=== PATIENT | female | born 1960 | race Caucasian/White ===

== ENCOUNTER 2020-08-08 16:55 | Emergency (ER) | payer OTHER ==
--- OUTSIDE RECORDS SUMMARY | 2020-08-08 16:57 | XMS REPORT | Continuity of Care Document ---
:1960 Author Organization [facility] t Address [address] [place] [address] Care Team Providers Name Role Phone SYSTEM, NOT IN Attending Clinician Unavailable Rosa RN, L Attending Clinician Unavailable Doctor Unassigned, Name Attending Clinician Unavailable Jorge Luis TALLEY, K.H. Attending Clinician Problems This patient has no known problems. Allergies, Adverse Reactions, Alerts This patient has no known allergies or adverse reactions. Medications This patient has no known medications. Procedures This patient has no known procedures. Encounters Start End Encounter Admission Attending Care Care Encounter Source Date/Time Date/Time Type Type Clinicians Facility Department ID 2019-11-01 Outpatient SYSTEM, [facility] [id number] 17:42:33 PROVIDER Eric padilla 2020-08-02 2020-08-02 Telephone Rosa Rasmussen [id number] 00:00:00 00:00:00 , Lizabeth Echevarria [id number] [place] [id number] 2020-07-11 2020-07-11 Orders Doctor COOMBS [id number] 00:00:00 00:00:00 Only Unassigned, ALBERTO [id number] Why [facility] [id number] 2020-07-11 2020-07-11 Outpatient [facility] [id number] [facility] 2020-06-19 2020-06-19 Outpatient [facility] [id number] [facility] 2020-06-13 2020-06-13 Out[facility] [id number] [facility] 2020-06-13 2020-06-13 Out[facility] [id number] [facility] 2020-05-23 2020-05-23 Office Kang, [facility] [id number] 13:14:26 14:35:32 Visit Rupert Duff [id number] [place] [id number] [id number] [address] 2020-05-23 2020-05-23 Outpatient [facility] [id number] [facility] 2020-05-17 2020-05-17 Outpatient [facility] [id number] [facility] 2020-05-14 2020-05-14 Out[facility] [id number] [facility] 2020-05-09 2020-05-09 Outpatient [facility] [id number] [facility] 2020-04-27 2020-04-27 Outpatient [facility] [id number] [facility] 2020-04-25 2020-04-25 Outpatient [facility] [id number] [facility] 2020-03-19 2020-03-19 Outpatient [facility] [id number] [facility] 2020-03-19 2020-03-19 Outpatient [facility] [id number] [facility] 2020-02-29 2020-02-29 Outpatient [facility] [id number] [facility] 2020-02-28 2020-02-28 Outpatient [facility] [id number] [facility] 2020-02-01 2020-02-01 Outpatient [facility] [id number] [facility] 2020-01-25 2020-01-25 Outpatient [facility] [id number] [facility] 2020-01-17 2020-01-17 Outpatient [facility] [id number] [facility] 2020-01-16 2020-01-16 Outpatient [facility] [id number] [facility] 2020-01-12 2020-01-12 Outpatient [facility] [id number] [facility] 2020-01-11 2020-01-11 Outpatient [facility] [id number] [facility] 2020-01-09 2020-01-09 Outpatient [facility] [id number] [facility] Results This patient has no known results.
[2020-08-08 18:20] LABS: Absolute Lymphocytes (CBC) 1.6 K/uL (0.7-4.9); Basophils % 1.7 % (0-1.3); Hematocrit 22.5 % (36.0-45.0); Lymphocytes % 19.3 % (15.3-44.8); MPV 7.9 fL (7.6-11.3); RBC Red Blood Cell Count 3.49 M/uL (3.86-4.86)
[2020-08-08 18:30] LABS: Albumin 3.9 g/dL (3.4-5.0); Bilirubin Direct 0.1 mg/dL (0-0.2); Bilirubin Total 0.3 mg/dL (0.2-1.0); Potassium 4.3 mmol/L (3.5-5.1); Protein, Total 7.8 g/dL (6.4-8.2)
--- NOTE | 2020-08-08 19:53 | RAD REPORT ---
EXAM DESCRIPTION: CT - Abdomen Pelvis Wo Contrast - 08/08/2020 7:38 pm CLINICAL HISTORY: Abdominal pain COMPARISON: June 2020 CT chest TECHNIQUE: Computed axial tomography of the abdomen and pelvis was obtained. IV and oral contrast we re not requested. All CT scans are performed using dose optimization technique as appropriate and may include automated exposure control or mA/KV adjustment according to patient size. FINDINGS: The evaluation of solid organs, vessels and bowel is limited secondary to the lack of con trast administration. Right lower lobe subcentimeter nodule unchanged. The liver, spleen, pancreas, adrenals and left kidney appear grossly normal. Right nephrectomy. Left kidney grossly normal. No hydronephrosis. Wall of a portion of the sigmoid colon is thickened. Minimal stranding within the adjacent fat. Colon ic diverticulosis. Normal appendix IMPRESSION: Subcentimeter right lower lobe pulmonary nodule unchanged. This may represent a metastas is. Thickening of the wall of a portion of sigmoid colon. Minimal stranding within the adjacent fat. This could indicate minimal diverticulitis. An underlying mass although possible is probably less likely. Followup is recommended
[2020-08-08 20:46] LABS: Platelet Estimate ADEQ; White Blood Cell Scan OK (OK)
[2020-08-08 20:47] LABS: Anisocytosis 2+; Blood Morphology Comment NOTED (NOT SEEN); Hypochromasia 2+; Polychromasia SLIGHT
[2020-08-08] MEDS ORDERED: NA CHLORIDE 0.9% 250 ML ONE (21:53)
--- NOTE | 2020-08-08 23:47 | EDPHYS ---
Physician Documentation [facility] Name: Barak Dior Age: 60 yrs Sex: Female : 1960 Arrival Date: 08/08/2020 Time: 16:59 Bed 20 Private MD: ED Physician Ramon Wallis HPI: 08/08 23:42 This 60 yrs old Female presents to ER via Ambulatory with complaints of GI kb Bleed -Sent By Dr Marcelo. 23:42 Pt reports chronic abd pain/problems. States she is trying to get clearance to have kb Upper and lower GI scopes done and part of that was having labs drawn yesterday. Was called today and told that she was anemic and needed to come to the ER. States she takes iron supplements and was told by her other dr that she doesn't absorb iron like she should because of cancer history. States she has a it specialist appt tomorrow to get cleared for the GI procedures and would like to make it to that. Denies any bleeding. States her stool is dark, but not different than normal. States she has had dizziness and fatigue intermittently over the last few months. . 23:45 Dr Marcelo had labs done yesterday and pt received call today that she was anemic and kb needed to come to the eR. Onset: The symptoms/episode began/occurred today. Severity of symptoms: At their worst the symptoms were. The patient has experienced similar episodes in the past, a few times. The patient has been recently seen by a physician:. 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 - Social history:: Smoking status: Patient reports the use of cigarette tobacco products, smokes one pack cigarettes per day. ROS: 23:41 Constitutional: Negative for fever, chills, and weight loss. kb 23:41 Abdomen/GI: Positive for abdominal pain. 23:41 Neuro: Positive for dizziness. 23:41 All other systems are negative. Exam: 23:40 Constitutional: This is a well developed, well nourished patient who is awake, alert, kb and in no acute distress. Head/Face: Normocephalic, atraumatic. ENT: Moist Mucous membranes Cardiovascular: Regular rate and rhythm with a normal S1 and S2. No gallops, murmurs, or rubs. No pulse deficits. Respiratory: Respirations even and unlabored. No increased work of breathing, no retractions or nasal flaring. Skin: Warm, dry with normal turgor. Normal color. MS/ Extremity: Pulses equal, no cyanosis. Neurovascular intact. Full, normal range of motion. Neuro: Awake and alert, GCS 15, oriented to person, place, time, and situation. Moves all extremities. Normal gait. Psych: Awake, alert, with orientation to person, place and time. Behavior, mood, and affect are within normal limits. 23:40 Abdomen/GI: Inspection: abdomen appears normal, Bowel sounds: normal, Palpation: soft, in all quadrants, mild abdominal tenderness, in all quadrants. Vital Signs: 17:14 Weight 77.11 kg; Height 5 ft. 4 in. (162.56 cm); Pain 0/10; sv 17:26 BP 108 / 48; Pulse 87; Temp 97.8(O); Pulse Ox 100% on R/A; ap3 17:30 BP 118 / 90 Sitting; Pulse 77; Resp 16; Pulse Ox 100% on R/A; mh5 17:32 BP 104 / 54 Standing; Pulse 81; Resp 16; Pulse Ox 100% on R/A; mh5 17:34 BP 110 / 50 Supine; Pulse 71; Resp 16; Pulse Ox 100% on R/A; mh5 19:08 BP 106 / 55; Pulse 66; Pulse Ox 100% on R/A; ap3 20:30 BP 122 / 39; Pulse 76; Resp 16; Pulse Ox 99% on R/A; jb4 21:00 BP 165 / 76; Pulse 73; Resp 18; Pulse Ox 100% on R/A; jb4 23:00 BP 131 / 58; Pulse 71; Resp 22; Pulse Ox 97% on R/A; jb4 08/09 00:00 BP 138 / 65; Pulse 78; Resp 16; Pulse Ox 100% on R/A; jb4 08/08 17:14 Body Mass Index 29.18 (77.11 kg, 162.56 cm) sv MDM: 0526 17:20 Patient medically screened. kb 23:40 Data reviewed: vital signs, nurses notes. Data interpreted: Pulse oximetry: on room air kb is 97 %. Interpretation: normal. Counseling: I had a detailed discussion with the patient and/or guardian regarding: the historical points, exam findings, and any diagnostic results supporting the discharge/admit diagnosis, lab results, radiology results, the need for outpatient follow up, a kaiako kohanga reo, to return to the emergency department if symptoms worsen or persist or if there are any questions or concerns that arise at home. ED course: Discussed admission with hospitalist. Recommends transfuse 1 unit and pt follow up outpatient. . 08/08 17:29 Order name: Basic Metabolic Panel; Complete Time: 18:31 kb 08/08 17:29 Order name: CBC with Diff; Complete Time: 20:50 kb 08/08 17:29 Order name: Hepatic Function; Complete Time: 18:31 kb 08/08 17:29 Order name: Lipase; Complete Time: 18:31 kb 08/08 17:29 Order name: Type And Screen kb 08/08 20:22 Order name: Packed RBC Leukored EDMS 08/08 17:29 Order name: IV Saline Lock; Complete Time: 18:03 kb 08/08 17:29 Order name: Labs collected and sent; Complete Time: 18:04 kb 08/08 17:29 Order name: Orthostatics; Complete Time: 17:41 kb 08/08 19:26 Order name: CT Abd/Pelvis - Without Contrast; Complete Time: 19:58 kb 08/08 20:47 Order name: CBC Smear Scan; Complete Time: 20:50 EDMS Administered Medications: 08/09 00:00 Drug: Cipro (ciprofloxacin) 500 mg Route: PO; jb4 00:05 Follow up: Response: Medication administered at discharge. jb4 00:00 Drug: Flagyl (metroNIDAZOLE) 500 mg Route: PO; jb4 00:05 Follow up: Response: Medication administered at discharge. jb4 Disposition: 08:36 Co-signature as Attending Physician, Ramon Wallis MD I agree with the assessment and kdr plan of care. Disposition: 08/08/20 23:47 Discharged to Home. Impression: Anemia, unspecified, Diverticulitis of intestine, part unspecified, without perforation or abscess without bleeding. - Condition is Stable. - Discharge Instructions: Anemia, Nonspecific, Diverticulitis, Ebct-az-Bcdp, Blood Transfusion, Gpaf-zr-Awtk. - Prescriptions for Flagyl 500 mg Oral Tablet - take 1 tablet by ORAL route every 8 hours for 10 days; 30 tablet. Cipro 500 mg Oral Tablet - take 1 tablet by ORAL route every 12 hours for 7 days; 14 tablet. - Medication Reconciliation Form, Thank You Letter, Antibiotic Education, Prescription Opioid Use form. - Follow up: Emergency Department; When: As needed; Reason: Worsening of condition. Follow up: Private Physician; When: 2 - 3 days; Reason: Recheck today's complaints, Continuance of care, Re-evaluation by your physician. Signatures: Dispatcher [employer] EDMS Jhoana Young, MALIKA-C PROGRAM ATTENDANT-Cristal Howell, RN RN Ramon Wallis MD MD [facility] Joni Cunningham RN RN jb4 Corrections: (The following items were deleted from the chart) 00:42 08/08 23:47 08/08/2020 23:47 Discharged to Home. Impression: Anemia, unspecified; jb4 Diverticulitis of intestine, part unspecified, without perforation or abscess without bleeding. Condition is Stable. Forms are Medication Reconciliation Form, Thank You Letter, Antibiotic Education, Prescription Opioid Use. Follow up: Emergency Department; When: As needed; Reason: Worsening of condition. Follow up: Private Physician; When: 2 - 3 days; Reason: Recheck today's complaints, Continuance of care, Re-evaluation by your physician. kb
--- NOTE | 2020-08-08 23:47 | ER ---
Nurse's Notes [facility] Name: Barak Dior Age: 60 yrs Sex: Female : 1960 Arrival Date: 08/08/2020 Time: 16:59 Bed 20 Private MD: Diagnosis: Anemia, unspecified;Diverticulitis of intestine, part unspecified, without perforation or abscess without bleeding Presentation: 08/08 17:14 Chief complaint: Patient states: sent by Dr Marcelo for anemia. Pt reports having blood sv drawn yesterday. States she has had black stools for years and recently her Iron pill was increased in frequency. Coronavirus screen: Client denies travel out of the [place] in the last 14 days. At this time, the client does not indicate any symptoms associated with coronavirus-19. Ebola Screen: No symptoms or risks identified at this time. Risk Assessment: Do you want to hurt yourself or someone else? Patient reports no desire to harm self or others. Onset of symptoms was August 08, 2020. 17:14 Method Of Arrival: Ambulatory sv 17:14 Acuity: SAM 3 sv 17:29 Initial Sepsis Screen: Does the patient meet any 2 criteria? No. Patient's initial ap3 sepsis screen is negative. Does the patient have a suspected source of infection? No. Patient's initial sepsis screen is negative. 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 - Social history:: Smoking status: Patient reports the use of cigarette tobacco products, smokes one pack cigarettes per day. Screenin:29 Abuse screen: Denies threats or abuse. Nutritional screening: No deficits noted. ap3 Tuberculosis screening: No symptoms or risk factors identified. Fall Risk None identified. No fall in past 12 months (0 pts). No secondary diagnosis (0 pts). No IV (0 pts). Ambulatory Aid- None/Bed Rest/Nurse Assist (0 pts). Gait- Normal/Bed Rest/Wheelchair (0 pts) Mental Status- Oriented to own ability (0 pts). Total Martinez Fall Scale indicates No Risk (0-24 pts). Assessment: 17:27 General: Appears in no apparent distress. comfortable, Behavior is calm, cooperative. ap3 Pain: Denies pain. Neuro: Level of Consciousness is awake, alert, obeys commands, Oriented to person, place, time, situation, Gait is steady, Speech is normal. Cardiovascular: Capillary refill < 3 seconds. Respiratory: Airway is patent Respiratory effort is even, unlabored, Respiratory pattern is regular, symmetrical. GI: Reports dark stools for the last 6 years. : No signs and/or symptoms were reported regarding the genitourinary system. EENT: No signs and/or symptoms were reported regarding the EENT system. Derm: No signs and/or symptoms reported regarding the dermatologic system. Musculoskeletal: No signs and/or symptoms reported regarding the musculoskeletal system. 19:09 Reassessment: Patient and/or family updated on plan of care and expected duration. Pain ap3 level reassessed. Patient is alert, oriented x 3, equal unlabored respirations, skin warm/dry/pink. 20:00 Reassessment: Patient appears in no apparent distress at this time. Patient and/or jb4 family updated on plan of care and expected duration. Pain level reassessed. Patient is alert, oriented x 3, equal unlabored respirations, skin warm/dry/pink. 21:14 Reassessment: Patient appears in no apparent distress at this time. Patient and/or jb4 family updated on plan of care and expected duration. Pain level reassessed. Patient is alert, oriented x 3, equal unlabored respirations, skin warm/dry/pink. 22:10 Reassessment: Patient appears in no apparent distress at this time. Patient and/or jb4 family updated on plan of care and expected duration. Pain level reassessed. Patient is alert, oriented x 3, equal unlabored respirations, skin warm/dry/pink. 23:22 Reassessment: Patient appears in no apparent distress at this time. Patient and/or jb4 family updated on plan of care and expected duration. Pain level reassessed. Patient is alert, oriented x 3, equal unlabored respirations, skin warm/dry/pink. 08/09 00:22 Reassessment: Patient appears in no apparent distress at this time. Patient and/or jb4 family updated on plan of care and expected duration. Pain level reassessed. Patient is alert, oriented x 3, equal unlabored respirations, skin warm/dry/pink. No post H\T\H drawn per providers decision. Vital Signs: 08/08 17:14 Weight 77.11 kg; Height 5 ft. 4 in. (162.56 cm); Pain 0/10; sv 17:26 BP 108 / 48; Pulse 87; Temp 97.8(O); Pulse Ox 100% on R/A; ap3 17:30 BP 118 / 90 Sitting; Pulse 77; Resp 16; Pulse Ox 100% on R/A; mh5 17:32 BP 104 / 54 Standing; Pulse 81; Resp 16; Pulse Ox 100% on R/A; mh5 17:34 BP 110 / 50 Supine; Pulse 71; Resp 16; Pulse Ox 100% on R/A; mh5 19:08 BP 106 / 55; Pulse 66; Pulse Ox 100% on R/A; ap3 20:30 BP 122 / 39; Pulse 76; Resp 16; Pulse Ox 99% on R/A; jb4 21:00 BP 165 / 76; Pulse 73; Resp 18; Pulse Ox 100% on R/A; jb4 23:00 BP 131 / 58; Pulse 71; Resp 22; Pulse Ox 97% on R/A; jb4 08/09 00:00 BP 138 / 65; Pulse 78; Resp 16; Pulse Ox 100% on R/A; jb4 08/08 17:14 Body Mass Index 29.18 (77.11 kg, 162.56 cm) sv ED Course: 08/08 16:59 Patient arrived in ED. ds1 17:17 Triage completed. sv 17:18 Arm band placed on. sv 17:19 Jhoana Young FNP-C [facility] kb 17:19 Ramon Wallis MD is Attending Physician. kb 17:26 Camilla French, XANDER is Primary Nurse. ap3 17:29 Patient has correct armband on for positive identification. Call light in reach. Adult ap3 w/ patient. Pulse ox on. NIBP on. Door closed. Noise minimized. 18:03 Type And Screen Sent. 5 18:03 Basic Metabolic Panel Sent. 5 18:03 CBC with Diff Sent. mh5 18:03 Hepatic Function Sent. mh5 18:03 Lipase Sent. mh5 18:04 Initial lab(s) drawn, by nh, sent to lab. T\T\S collected, blood band applied to patient. [facility] Inserted saline lock: 20 gauge in right antecubital area, using aseptic technique. Blood collected. 18:05 Bed in low position. Side rails up X 1. commercial center manager on. [facility] 18:41 Notified Nurse Practitioner and/or Physician Sand Control Worker of a critical lab result(s), sv hemoglobin-6.5. 19:14 Primary Nurse role handed off by Camilla French, RN mw2 19:38 CT Abd/Pelvis - Without Contrast In Process Unspecified. EDWA 20:34 Joni Cunningham, RN is Primary Nurse. jb4 08/09 00:22 No provider procedures requiring assistance completed. IV discontinued, intact, jb4 bleeding controlled, No redness/swelling at site. Pressure dressing applied. Administered Medications: 00:00 Drug: Cipro (ciprofloxacin) 500 mg Route: PO; jb4 00:05 Follow up: Response: Medication administered at discharge. jb4 00:00 Drug: Flagyl (metroNIDAZOLE) 500 mg Route: PO; jb4 00:05 Follow up: Response: Medication administered at discharge. jb4 Outcome: 08/08 23:47 Discharge ordered by . brenda 08/09 00:40 Discharged to home ambulatory. jb4 Condition: stable Discharge instructions given to patient, Instructed on discharge instructions, follow up and referral plans. medication usage, Demonstrated understanding of instructions, follow-up care, medications, Prescriptions given X 2. 00:42 Patient left the ED. jb4 Signatures: Dispatcher [employer] EDWA Jhoana Young, BONY HARTP-Cristal Howell RN Jodi Payne ds1 Joni Cunningham, Valeria Chaney RN Camilla Beth RN RN ap3 [place], MyKena mw2 Corrections: (The following items were deleted from the chart) 00:40 00:22 Reassessment: Patient appears in no apparent distress at this time. Patient jb4 and/or family updated on plan of care and expected duration. Pain level reassessed. Patient is alert, oriented x 3, equal unlabored respirations, skin warm/dry/pink. jb4
[2020-08-09] MEDS ORDERED: metroNIDAZOLE 500 MG TABLET ONE (00:28)
[2020-08-09] MEDS ORDERED: CIPROFLOXACIN HCL 500 MG TAB ONE (00:29)
[2020-08-09 02:33] VITALS: TEMP 97.8
[2020-08-09 02:46] VITALS: BP 138/65; O2SAT 100
== END 2020-08-09 00:42 | disposition home or self-care (01) ==
LOC: ER 16:55
PROC: 30233N1 Transfusion of Nonautologous Red Blood Cells into Peripheral Vein, Percutaneous Approach (ICD-10-PCS; principal; 2020-08-09)
DX: D64.9 Anemia, unspecified (principal); K57.32 Diverticulitis of large intestine without perforation or abscess without bleeding; J44.9 Chronic obstructive pulmonary disease, unspecified; F17.210 Nicotine dependence, cigarettes, uncomplicated; Z95.1 Presence of aortocoronary bypass graft
CPT/HCPCS: 85025; 80048; 36415; 86900; 86850; 86901; 80076; 83690; 74176; 99284; 36430; P9016; J7050

== ENCOUNTER 2020-09-05 06:20 | Day surgery (SDC) | payer OTHER ==
[2020-09-05] MEDS ORDERED: Ringers Lactate 1,000 ML IV ONE (06:57)
[2020-09-05] MEDS ORDERED: LIDOCAINE 1% MPF 5 ML VIAL ONE (07:42)
[2020-09-05] MEDS ORDERED: propofoL 200 MG/20 ML VIAL IV ONE (07:42)
--- NOTE | 2020-09-05 08:24 | ENDO RPT ---
[address], [address] EGD PROCEDURE REPORT EXAM DATE: 09/05/2020 PATIENT NAME: Barak Dior MR#: [id number] BIRTHDATE: 1960 ATTENDING: [address] STATUS: outpatient SIGN ERECTOR AND REPAIRER: Susan Paul RN and Yessy Pickard RN INDICATIONS: The patient is a 60 yr old Female here for an EGD due to left upper quadrant abdominal pain, right upper quadrant abdominal pain, melenic bleeding, anemia, GERD, and heartburn PROCEDURE PERFORMED: EGD with biopsy MEDICATIONS: Per Anesthesia. TOPICAL ANESTHETIC: none CONSENT: The patient understands the risks and benefits of the procedure and understands that these risks include, but are not limited to: sedation, allergic reaction, infection, perforation and/or bleeding. Alternative means of evaluation and treatment include, among others: physical exam, x-rays, and/or surgical intervention. The patient elects to proceed with this endoscopic procedure. DESCRIPTION OF PROCEDURE: During intra-op preparation period all mechanical medical equipment was checked for proper function. Hand hygiene and appropriate measures for infection prevention was taken. Procedure, possible complications, and alternatives including but not limited to the possibility of bleeding, perforation, tear, infection, sepsis, need for surgery, need for blood transfusion, and anesthesia related complications were explained to the patient. After the risks, benefits and alternatives of the procedure were thoroughly explained, Informed consent was verified, confirmed and timeout was successfully executed by the treatment team. The patient was placed in the left lateral position. The patient was anesthetized with topical anesthesia. Through the anesthetized oropharyngeal area, the scope was passed without any difficulty. The Pentax EG-[id number] ([id number]) endoscope was introduced through the mouth and advanced to the third portion of the duodenum. Retroflexed views revealed sessile polyp(s). The gastroscope was then slowly withdrawn and removed. A 3 mm white sessile polyp was found in the fundus. With jumbo forceps, a biopsy was obtained and sent to pathology. An erosion was found in the antrum. Multiple biopsies were obtained and sent to pathology. A 4 mm sessile polyp was found in the descending duodenum. With jumbo forceps, a biopsy was obtained and sent to pathology. Small bowel biopsies obtained. ADVERSE EVENTS: There were no complications. IMPRESSIONS: 1. 3 mm white sessile polyp in the fundus, s/p biopsy 2. Erosion in the antrum, s/p biopsies 3. 4 mm sessile polyp n the descending duodenum, s/p biopsy 4. Small bowel biopsies obtained RECOMMENDATIONS: 1. await biopsy results 2. acid suppression therapy REPEAT EXAM: De[address] Dr eSigned: Deuce Nation Dr 09/05/2020 8:24 AM cc: CPT CODES: ICD9 CODES: PATIENT NAME: Barak Dior MR#: [id number]
--- NOTE | 2020-09-05 08:50 | ENDO RPT ---
[address], [address] COLONOSCOPY PROCEDURE REPORT EXAM DATE: 09/05/2020 PATIENT NAME: Barak Dior MR #: [id number] BIRTHDATE: 1960 ATTENDING: Deuce [address] STATUS: outpatient [facility] OPERATOR: Susan Paul RN and Yessy Pickard RN INDICATIONS: The patient is a 60 yr old Female here for a colonoscopy due to RLQ/LLQ abdominal pain, anemia, melenic bleeding, and family history of colon polyps - mother, and personal history of uterine cancer s/p CICI/BSO PROCEDURE PERFORMED: Colonoscopy MEDICATIONS: Per Anesthesia. ESTIMATED BLOOD LOSS: None CONSENT: The patient understands the risks and benefits of the procedure and understands that these risks include, but are not limited to: sedation, allergic reaction, infection, perforation and/or bleeding. Alternative means of evaluation and treatment include, among others: physical exam, x-rays, and/or surgical intervention. The patient elects to proceed with this endoscopic procedure. DESCRIPTION OF PROCEDURE: During intra-op preparation period all mechanical medical equipment was checked for proper function. Hand hygiene and appropriate measures for infection prevention was taken. Procedure, possible complications, alternatives including, but not limited to possibility of bleeding, perforation, tear, infection, sepsis, need for surgery, need for blood transfusion, were explained to the patient. After the risks, benefits and alternatives of the procedure were thoroughly explained, Informed consent was verified, confirmed and timeout was successfully executed by the treatment team. The patient was placed in the left lateral position. A digital rectal exam was performed and revealed a mild perianal rash. After appropriate level of anesthesia, the scope was passed. The EG-[id number] ([id number]) and [id number] ([id number]) endoscope was introduced through the anus and advanced to the sigmoid colon. The quality of the prep was good. The instrument was then slowly withdrawn as the colon was fully examined. Scope withdrawal time was 3 minutes. COLON FINDINGS: The colon was tortuous, unable to intubate past sigmoid colon, despite multiple manuevers including moving patient on to her right side. Retroflexed views revealed small hemorrhoids. The scope was then completely withdrawn from the patient and the procedure terminated. ADVERSE EVENTS: There were no complications. IMPRESSIONS: 1) Tortuous colon, unable to intubate past sigmoid colon 2) Internal hemorrhoids 3) Perianal rash, mild RECOMMENDATIONS: 1) barium enema 2) perianal rash therapy RECALL: Return in 5 year(s) for Colonoscopy. Deuce [address] Dr eSigned: Deuce Nation Dr 09/05/2020 8:49 AM cc: CPT CODES: ICD9 CODES: 1. 782.1 Rash and other nonspecific skin eruption 2. 569.89 Other specified disorders of intestines PATIENT NAME: Barak Dior MR#: [id number]
[2020-09-05 08:58] VITALS: O2SAT 100
[2020-09-05 09:14] VITALS: BP 159/92; TEMP 97.7
== END 2020-09-05 09:28 | disposition home or self-care (01) ==
LOC: OR 06:20
PROVIDERS: ATTEND Internal Medicine Gastroenterology
PROC: 0DB68ZX Excision of Stomach, Via Natural or Artificial Opening Endoscopic, Diagnostic (ICD-10-PCS; 2020-09-05)
PROC: 0DJD8ZZ Inspection of Lower Intestinal Tract, Via Natural or Artificial Opening Endoscopic (ICD-10-PCS; 2020-09-05)
PROC: 0DB98ZX Excision of Duodenum, Via Natural or Artificial Opening Endoscopic, Diagnostic (ICD-10-PCS; principal; 2020-09-05 07:30)
PROC: 0DB88ZX Excision of Small Intestine, Via Natural or Artificial Opening Endoscopic, Diagnostic (ICD-10-PCS; 2020-09-05 07:30)
DX: K31.7 Polyp of stomach and duodenum (principal); K29.50 Unspecified chronic gastritis without bleeding; K29.80 Duodenitis without bleeding; R10.32 Left lower quadrant pain; K64.8 Other hemorrhoids; R21 Rash and other nonspecific skin eruption; R10.9 Unspecified abdominal pain; R10.12 Left upper quadrant pain; R10.11 Right upper quadrant pain; K21.9 Gastro-esophageal reflux disease without esophagitis; D64.9 Anemia, unspecified; K92.1 Melena; R12 Heartburn
CPT/HCPCS: 88312; 88305; 43239; 45378; J2704; J7120

== ENCOUNTER 2020-09-12 22:06 | Emergency (ER) | payer OTHER ==
--- OUTSIDE RECORDS SUMMARY | 2020-09-12 22:09 | XMS REPORT | Continuity of Care Document ---
:1960 Author Organization [facility] t Address [address] [place] [address] Care Team Providers Name Role Phone SYSTEM, NOT IN Attending Clinician Unavailable Jorge Luis TALLEY, K.H. [...] Clinicians Facility Department ID 2019-11-01 Outpatient SYSTEM, [facility] [id number] 17:42:33 PROVIDER Eric padilla 2020-09-11 2020-09-11 Outpatient [facility] [id number] 00:00:00 00:00:00 [facility] 2020-09-10 2020-09-10 Office DARLENE Kang [id number] 08:58:16 09:42:54 Visit Rupert Duff [id number] Cas [id number] Fátima [phone] formerly [facility] 2020-09-06 2020-09-06 Outpatient [facility] [id number] [facility] 2020-09-06 2020-09-06 [facility] [id number] [facility] 2020-08-08 2020-08-08 Out[facility] [id number] [facility] 2020-07-11 2020-07-11 Out[facility] [id number] [facility] 2020-06-19 2020-06-19 Out[facility] [id number] [facility] 2020-06-13 2020-06-13 Out[facility] [id number] [facility] 2020-06-13 2020-06-13 Out[facility] [id number] [facility] 2020-05-23 2020-05-23 Out[facility] [id number] [facility] 2020-05-17 2020-05-17 Out[facility] [id number] [facility] 2020-05-14 2020-05-14 [facility] [id number] [facility] 2020-05-09 2020-05-09 Out[facility] [id number] [facility] 2020-04-27 2020-04-27 Out[facility] [id number] [facility] 2020-04-25 2020-04-25 [facility] [id number] [facility] 2020-03-19 2020-03-19 Out[facility] [id number] [facility] 2020-03-19 2020-03-19 Out[facility] [id number] [facility] 2020-02-29 2020-02-29 Out[facility] [id number] [facility] 2020-02-28 2020-02-28 Out[facility] [id number] [facility] 2020-02-01 2020-02-01 Out[facility] [id number] [facility] 2020-01-25 2020-01-25 Out[facility] [id number] [facility] 2020-01-17 2020-01-17 [facility] [id number] [facility] 2020-01-16 2020-01-16 Out[facility] [id number] [facility] 2020-01-12 2020-01-12 Out[facility] [id number] [facility] 2020-01-11 2020-01-11 Out[facility] [id number] [facility] 2020-01-09 2020-01-09 Out[facility] [id number] [facility] Results This patient has no known results.
[2020-09-13] MEDS ORDERED: MAGNES/ALUMIN/SIMET 30ML UCUP ONE (01:06)
[2020-09-13] MEDS ORDERED: ONDANSETRON 4 MG/2 ML VIAL ONE (01:06)
[2020-09-13] MEDS ORDERED: FAMOTIDINE 20 MG/2 ML VIAL IV ONE (01:07)
[2020-09-13] MEDS ORDERED: LIDOCAINE VISCOUS 2% SOLN 15 ML UDC ONE (01:07)
[2020-09-13] MEDS ORDERED: NA CHLORIDE 0.9% 1,000 ML ONE (01:07)
[2020-09-13 01:57] LABS: Absolute Lymphocytes (CBC) 0.8 K/uL (0.7-4.9); Basophils % 0.4 % (0-1.3); Hematocrit 26.8 % (36.0-45.0); Lymphocytes % 6.4 % (15.3-44.8); MPV 8.7 fL (7.6-11.3); RBC Red Blood Cell Count 4.03 M/uL (3.86-4.86)
[2020-09-13 02:19] LABS: ALT/SGPT 25 U/L (12-78); AST/SGOT 16 U/L (15-37); Albumin 3.6 g/dL (3.4-5.0); Alkaline Phosphatase 86 U/L (45-117); BUN Blood Urea Nitrogen 28 mg/dL (7-18); Bicarbonate 23 mmol/L (21-32); Bilirubin Direct < 0.1 mg/dL (0-0.2); Bilirubin Total 0.2 mg/dL (0.2-1.0); Glucose Level 153 mg/dL (74-106); Lipase 122 U/L (73-393); Potassium 4.3 mmol/L (3.5-5.1); Protein, Total 7.5 g/dL (6.4-8.2); Sodium Level 138 mmol/L (136-145)
[2020-09-13] MEDS ORDERED: HYDROMORPHONE HCL 2 MG/ML inj ONE (03:54)
--- NOTE | 2020-09-13 03:57 | ER ---
Nurse's Notes [facility] Name: Barak Dior Age: 60 yrs Sex: Female : 1960 Arrival Date: 09/12/2020 Time: 22:08 Bed 18 Private MD: Diagnosis: Abdominal pain, unspecified Presentation: 09/12 22:17 Chief complaint: Patient states: RUQ and epigastric abdomen pain, pt has known bs2 gallbladder problems waiting on stress test for clearance for surgery. Coronavirus screen: Client denies travel out of the [place] in the last 14 days. chills, diarrhea, nausea, vomiting. Client presents with at least one sign or symptom that may indicate coronavirus-19. Standard/surgical mask placed on the client. Ebola Screen: Patient negative for fever greater than or equal to 101.5 degrees Fahrenheit, and additional compatible Ebola Virus Disease symptoms Patient denies exposure to infectious person. Patient denies travel to an Ebola-affected area in the 21 days before illness onset. No symptoms or risks identified at this time. Initial Sepsis Screen: Does the patient meet any 2 criteria? No. Patient's initial sepsis screen is negative. Does the patient have a suspected source of infection? No. Patient's initial sepsis screen is negative. Risk Assessment: Do you want to hurt yourself or someone else? Patient reports no desire to harm self or others. Onset of symptoms was September 12, 2020. 22:17 Method Of Arrival: Ambulatory bs2 22:17 Acuity: SAM 3 bs2 Triage Assessment: 22:26 General: Appears distressed, uncomfortable, obese, well groomed, well developed, well bs2 nourished, Behavior is cooperative, crying, restless. Pain: Complains of pain in epigastric area, right upper quadrant and left upper quadrant Pain currently is 10 out of 10 on a pain scale. GI: Reports lower abdominal pain, diarrhea, nausea, vomiting. Historical: - Allergies: 22:21 No Known Allergies; bs2 - Home Meds: 22:21 lisinopril 10 mg Oral tab 2 tabs once daily [Active]; metoprolol tartrate 75 mg Oral bs2 tab 1 tab 2 times per day [Active]; pantoprazole 40 mg oral TbEC 1 tab once daily [Active]; montelukast 10 mg oral tab 1 tab [Active]; atorvastatin 80 mg oral tab 1 tab once daily [Active]; venlafaxine 75 mg oral cp24 1 cap once daily [Active]; aspirin 81 mg Oral chew 1 tab once daily [Active]; Symbicort 160-4.5 mcg/actuation inhalation HFAA 2 puffs once a day [Active]; fluticasone propionate 50 mcg/actuation inhalation dsdv 1 puff once a day [Active]; albuterol sulfate 90 mcg/actuation Inhl aebs 2 puffs every 4 hours [Active]; - PMHx: 22:26 cholecystitis; Hypertensive disorder; Chronic obstructive lung disease; bs2 - PSHx: 22:26 Coronary artery bypass graft; kidney removal; section; cancer bladder; bs2 - Immunization history:: Client reports having NOT received the Covid vaccine. Flu vaccine is not up to date. - Social history:: Smoking status: Reported history of juuling and/or vaping. - Family history:: not pertinent. Screenin/01 00:00 Abuse screen: Denies threats or abuse. Denies injuries from another. Nutritional bs2 screening: No deficits noted. Tuberculosis screening: No symptoms or risk factors identified. Fall Risk None identified. Assessment: 00:00 General: Appears distressed, uncomfortable, obese, well groomed, well developed, well bs2 nourished, Behavior is cooperative, appropriate for age. Pain: Complains of pain in epigastric area, anterior aspect of right lateral abdomen and right upper quadrant Pain currently is 7 out of 10 on a pain scale. Quality of pain is described as Pain began gradually, 1 day ago. GI: Bowel sounds present X 4 quads. Abd is soft Abdomen is tender to palpation in epigastric area, anterior aspect of right lateral abdomen and right upper quadrant Guarding noted Reports upper abdominal pain, diarrhea, indigestion, intolerance of fluids, intolerance of food, nausea, vomiting. Vital Signs: 09/12 22:17 BP 103 / 48 RA Sitting (auto/lg); Pulse 68; Resp 16; Temp 97.2; Pulse Ox 98% ; Weight bs2 73.03 kg (R); Height 5 ft. 4 in. (162.56 cm) (R); Pain 10/10; 09/13 01:02 BP 122 / 57; Pulse 89; Resp 16; Pulse Ox 100% ; Pain 7/10; bs2 09/12 22:17 Body Mass Index 27.64 (73.03 kg, 162.56 cm) bs2 ED Course: 09/12 22:08 Patient arrived in ED. bp1 22:21 Triage completed. bs2 22:26 Arm band placed on right wrist. bs2 09/13 00:00 Patient has correct armband on for positive identification. Bed in low position. Call bs2 light in reach. Side rails up X 1. 00:18 Inserted saline lock: 20 gauge in right hand, using aseptic technique. bs2 00:21 Maria Esther Ruiz MD is Attending Physician. ma2 00:39 Lactate Sent. bs2 00:39 Procalcitonin Sent. bs2 00:39 Basic Metabolic Panel Sent. bs2 00:39 CBC with Diff Sent. bs2 00:39 Hepatic Function Sent. bs2 00:39 Lipase Sent. bs2 02:44 Inserted saline lock: 22 gauge in left antecubital area, using aseptic technique. ad5 03:10 CT Abd/Pelvis - IV Contrast Only Sent. bs2 03:16 CT Abd/Pelvis - IV Contrast Only In Process Unspecified. EDMS 04:12 IV discontinued, intact, bleeding controlled, No redness/swelling at site. Pressure bs2 dressing applied. 04:12 No provider procedures requiring assistance completed. bs2 Administered Medications: 01:00 Drug: Zofran (Ondansetron) 4 mg Route: IVP; Site: right hand; bs2 03:25 Follow up: Response: No adverse reaction; Nausea is decreased bs2 01:00 Drug: Pepcid (famotidine) 20 mg Route: IVP; Site: right hand; bs2 03:25 Follow up: Response: No adverse reaction bs2 01:00 Drug: GI Cocktail without - (Maalox Suspension 30 ml, Lidocaine Liquid 2 % 15 bs2 ml) Route: PO; 03:26 Follow up: Response: No adverse reaction bs2 01:01 Drug: NS 0.9% 1000 ml Route: IV; Rate: 1 bolus; Site: right hand; bs2 03:35 Drug: Dilaudid (HYDROmorphone) 1 mg Route: IVP; Site: right hand; bs2 04:00 Follow up: Response: No adverse reaction; Pain is decreased bs2 Outcome: 03:56 Discharge ordered by . [email or web address] 04:12 Discharged to home ambulatory. bs2 04:12 Condition: improved 04:12 Discharge instructions given to patient, family, Instructed on discharge instructions, follow up and referral plans. medication usage. 04:12 Patient left the ED. bs2 Signatures: Dispatcher [employer] EDMS Maria Esther Ruiz MD MD ma2 Briseida Atwood Andrea ad5 Smith, Bridget bs2 Corrections: (The following items were deleted from the chart) 09/12 22:29 22:21 PMHx: COPD; bs2 bs2 22:29 22:26 PMHx: Asthma; bs2 bs2
--- NOTE | 2020-09-13 03:57 | EDPHYS ---
Physician Documentation [facility] Name: Barak Dior Age: 60 yrs Sex: Female : 1960 Arrival Date: 09/12/2020 Time: 22:08 Bed 18 Private MD: ED Physician Maria Esther Ruiz HPI: 09/13 01:34 This 60 yrs old Female presents to ER via Ambulatory with complaints of ma2 Abdominal Pain, Diarrhea, Vomiting. 01:34 The patient presents to the emergency department with nausea, vomiting, diarrhea, ma2 abdominal pain. Onset: The symptoms/episode began/occurred gradually, 2 day(s) ago. Associated signs and symptoms: Pertinent negatives: belching, dysuria, fever, flatulence. Severity of symptoms: At their worst the symptoms were mild in the emergency department the symptoms are unchanged. The patient has experienced similar episodes in the past. Historical: - Allergies: 09/12 22:21 No Known Allergies; bs2 - Home Meds: 22:21 lisinopril 10 mg Oral tab 2 tabs once daily [Active]; metoprolol tartrate 75 mg Oral bs2 tab 1 tab 2 times per day [Active]; pantoprazole 40 mg oral TbEC 1 tab once daily [Active]; montelukast 10 mg oral tab 1 tab [Active]; atorvastatin 80 mg oral tab 1 tab once daily [Active]; venlafaxine 75 mg oral cp24 1 cap once daily [Active]; aspirin 81 mg Oral chew 1 tab once daily [Active]; Symbicort 160-4.5 mcg/actuation inhalation HFAA 2 puffs once a day [Active]; fluticasone propionate 50 mcg/actuation inhalation dsdv 1 puff once a day [Active]; albuterol sulfate 90 mcg/actuation Inhl aebs 2 puffs every 4 hours [Active]; - PMHx: 22:26 cholecystitis; Hypertensive disorder; Chronic obstructive lung disease; bs2 - PSHx: 22:26 Coronary artery bypass graft; kidney removal; section; cancer bladder; bs2 - Immunization history:: Client reports having NOT received the Covid vaccine. Flu vaccine is not up to date. - Social history:: Smoking status: Reported history of juuling and/or vaping. - Family history:: not pertinent. ROS: 09/13 01:34 Constitutional: Negative for fever, chills, and weight loss. ma2 All other systems are negative. Exam: 01:34 Constitutional: This is a well developed, well nourished patient who is awake, alert, ma2 and in no acute distress. Head/Face: Normocephalic, atraumatic. Eyes: Pupils equal round and reactive to light, extra-ocular motions intact. Lids and lashes normal. Conjunctiva and sclera are non-icteric and not injected. Cornea within normal limits. Periorbital areas with no swelling, redness, or edema. ENT: Nares patent. No nasal discharge, no septal abnormalities noted. Tympanic membranes are normal and external auditory canals are clear. Oropharynx with no redness, swelling, or masses, exudates, or evidence of obstruction, uvula midline. Mucous membranes moist. Neck: Trachea midline, no thyromegaly or masses palpated, and no cervical lymphadenopathy. Supple, full range of motion without nuchal rigidity, or vertebral point tenderness. No Meningismus. Chest/axilla: Normal chest wall appearance and motion. Nontender with no deformity. No lesions are appreciated. Cardiovascular: Regular rate and rhythm with a normal S1 and S2. No gallops, murmurs, or rubs. Normal PMI, no JVD. No pulse deficits. Respiratory: Lungs have equal breath sounds bilaterally, clear to auscultation and percussion. No rales, rhonchi or wheezes noted. No increased work of breathing, no retractions or nasal flaring. Abdomen/GI: Soft, non-tender, with normal bowel sounds. No distension or tympany. No guarding or rebound. No evidence of tenderness throughout. Skin: Warm, dry with normal turgor. Normal color with no rashes, no lesions, and no evidence of cellulitis. MS/ Extremity: Pulses equal, no cyanosis. Neurovascular intact. Full, normal range of motion. Neuro: Awake and alert, GCS 15, oriented to person, place, time, and situation. Cranial nerves II-XII grossly intact. Motor strength 5/5 in all extremities. Sensory grossly intact. Cerebellar exam normal. Normal gait. Vital Signs: 09/12 22:17 BP 103 / 48 RA Sitting (auto/lg); Pulse 68; Resp 16; Temp 97.2; Pulse Ox 98% ; Weight bs2 73.03 kg (R); Height 5 ft. 4 in. (162.56 cm) (R); Pain 10/10; 09/13 01:02 BP 122 / 57; Pulse 89; Resp 16; Pulse Ox 100% ; Pain 7/10; bs2 06 22:17 Body Mass Index 27.64 (73.03 kg, 162.56 cm) bs2 MDM: 00:21 Patient medically screened. [facility] 01:34 Differential diagnosis: gastritis, diverticulitis, viral gastroenteritis, ma2 gastroenteritis. 03:56 Data reviewed: vital signs, nurses notes. Counseling: I had a detailed discussion with [facility] the patient and/or guardian regarding: the historical points, exam findings, and any diagnostic results supporting the discharge/admit diagnosis, the presence of at least one elevated blood pressure reading (>120/80) during this emergency department visit, the need for outpatient follow up. Response to treatment: the patient's symptoms have mildly improved after treatment, the patient's symptoms have markedly improved after treatment. 09/13 00:20 Order name: Basic Metabolic Panel; Complete Time: 02:29 em 09/13 00:20 Order name: CBC with Diff em 09/13 00:20 Order name: Hepatic Function; Complete Time: 02:29 09/13 00:20 Order name: Lipase; Complete Time: 02:29 09/13 00:22 Order name: Lactate; Complete Time: 02:29 [facility] 09/13 00:22 Order name: Procalcitonin; Complete Time: 02:29 [facility] 09/13 00:20 Order name: IV Saline Lock; Complete Time: 00:31 09/13 00:35 Order name: CT Abd/Pelvis - IV Contrast Only [facility] 09/13 01:58 Order name: Manual Differential EDMS 09/13 00:20 Order name: Labs collected and sent; Complete Time: 00:39 em 09/13 00:21 Order name: Urine Dipstick-Ancillary (obtain specimen) [facility] 09/13 01:12 Order name: Labs - recollect needed: purple and green top; Complete Time: 03:00 mw2 Administered Medications: 01:00 Drug: Zofran (Ondansetron) 4 mg Route: IVP; Site: right hand; 2 03:25 Follow up: Response: No adverse reaction; Nausea is decreased bs2 01:00 Drug: Pepcid (famotidine) 20 mg Route: IVP; Site: right hand; bs2 03:25 Follow up: Response: No adverse reaction bs2 01:00 Drug: GI Cocktail without - (Maalox Suspension 30 ml, Lidocaine Liquid 2 % 15 bs2 ml) Route: PO; 03:26 Follow up: Response: No adverse reaction bs2 01:01 Drug: NS 0.9% 1000 ml Route: IV; Rate: 1 bolus; Site: right hand; bs2 03:35 Drug: Dilaudid (HYDROmorphone) 1 mg Route: IVP; Site: right hand; bs2 04:00 Follow up: Response: No adverse reaction; Pain is decreased bs2 Disposition Summary: 09/13/20 03:56 Discharge Ordered Location: Home ma2 Condition: Stable ma2 Diagnosis - Abdominal pain, unspecified ma2 Followup: ma2 - With: Private Physician - When: Tomorrow - Reason: If symptoms return, Continuance of care Discharge Instructions: - Discharge Summary Sheet ma2 - Abdominal Pain, Adult ma2 Forms: - Medication Reconciliation Form ma2 - Thank You Letter ma2 - Antibiotic Education ma2 - Prescription Opioid Use ma2 Prescriptions: - Zofran 4 mg Oral Tablet - take 1 tablet by ORAL route every 12 hours As needed; 6 tablet; Refills: 0, ma2 Product Selection Permitted - Pepcid 20 mg Oral Tablet - take 1 tablet by ORAL route once daily; 20 tablet; Refills: 0, Product ma2 Selection Permitted Signatures: Dispatcher [employer] Tyler Graham RN RN em Alzahri, Mohammad, MD MD ak2 Isaac Sharpe 2 Antoinette Polanco bs2 Corrections: (The following items were deleted from the chart) 09/12 22:29 22:21 PMHx: COPD; bs2 bs2 22:29 22:26 PMHx: Asthma; bs2 bs2
[2020-09-13 04:24] VITALS: TEMP 97.2
[2020-09-13 04:26] VITALS: BP 122/57; O2SAT 100
[2020-09-13 04:54] LABS: Anisocytosis 1+; Blood Morphology Comment NOTED (NOT SEEN); Hypochromasia 2+; Platelet Estimate ADEQ
--- NOTE | 2020-09-13 10:45 | RAD REPORT ---
EXAM DESCRIPTION: CT ABDOMEN PELVIS WITH IV CONTRAST CLINICAL HISTORY: RUQ abd pain TECHNIQUE: Contiguous axial images obtained through the abdomen and pelvis following the uneventful administration of IV contrast. Coronal and sagittal reformatted images were provided. This exam was performed according to our departmental dose-optimization program, which includes autom ated exposure control, adjustment of the mA and/or kV according to patient size and/or use of iterati ve reconstruction technique. COMPARISON: 06/08/2020 FINDINGS: Lung bases: Stable 6 mm right lower lobe nodule (series 401 image 7). Coronary artery calc ification. Liver: Unremarkable Gallbladder and biliary system: Unremarkable Pancreas: Unremarkable Spleen: Unremarkable Adrenals: Unremarkable Kidneys: Prior right nephrectomy. Normal left renal cortical enhancement. No calculi. No hydronephros is. Bowel: The gastric pylorus appears somewhat thickened. Air-fluid levels within the proximal to mid la rge bowel. Colonic diverticula without adjacent inflammatory change. No obstruction. Appendix: Normal caliber appendix. No findings to suggest acute appendicitis. Urinary bladder: The urinary bladder is decompressed. Reproductive: There has been a hysterectomy. No adnexal cysts or masses are identified. Lymph nodes: No pathologically enlarged lymph nodes. Peritoneum: No focal fluid collection. No free air. Vessels: Moderate to severe atherosclerotic disease. No abdominal aortic aneurysm. Abdominal wall: Small fat-containing umbilical hernia. Bones: Multilevel spondylosis. No acute fracture. IMPRESSION: 1. The gastric pylorus appears somewhat thickened and may represent mild nonspecific g astritis. 2. Nonspecific air-fluid levels present within the large bowel. This can be seen in the clinical se tting of diarrhea. 3. Other findings as above. Electronically signed by: Sharmaine Schmidt MD 09/13/2020 3:37 AM CDT Due to temporary technical issues with the PACS/Fluency reporting system, reports are being signed by the in house radiologist without review as a courtesy to ensure prompt reporting. The interpreting r adiologist is fully responsible for the content of the report.
== END 2020-09-13 04:12 | disposition home or self-care (01) ==
LOC: ER 22:06
DX: R10.9 Unspecified abdominal pain (principal); I10 Essential (primary) hypertension; J44.9 Chronic obstructive pulmonary disease, unspecified; Z79.82 Long term (current) use of aspirin; Z95.1 Presence of aortocoronary bypass graft
CPT/HCPCS: 85025; 80048; 36415; 80076; 83605; 83690; 84145; 74177; 96375; 96374; 99284; Q9967; J1170; J7030; J2405

== ENCOUNTER 2023-11-21 13:46 | Inpatient (IN) | payer OTHER ==
--- OUTSIDE RECORDS SUMMARY | 2023-11-21 13:52 | XMS REPORT | Continuity of Care Document ---
Author Name Unknown Address [address] [facility] [address] [place] [address] [facility] Address [address] [facility] [place] [address] Care Team Providers Care Tentmaker Name Role Phone ISMAEL FITZPATRICK Primary Care Physician Bethany Alexandra Ornelas Attending Clinician Unavailable Madina Long Attending Clinician Unavailable SYSTEM, PROVIDER NOT IN Attending Clinician Unav ailable RUPERT VILLAGOMEZHMario Attending Clinician UnavailISMAEL Gonzalez Attending Clinician Kelsey Fitzpatrick MD, Ismael Pool Attending Clinician + [phone] Rupert Villagomez MD K.H. Attending Clinician + [phone] RADIOLOGY Attending Clinician Unavailable Jordana Suarez MA Attending Clinician Yomi duarte Doctor Unassigned, Kaleva Attending Clinician U navailchris Sahu RPH, Morgan Attending Clinician Unavailable PADMINI BAIRD Attending Clinician Yomi Baird MD, Padmini Rod Attending Clinician + [phone] Pob, Adc Lab Main Attending Clinician UnavailMYRTLE Holt Attending Clinician Unavailable DOC HERNANDES Attending Clinician Unavail able Myrtle Mckenna MD Attending Clinician [phone] Lazara TERRELL, Kurt Attending Clinician Unavailab OSWALDO Collins Attending Clinician Unavailable Cristela Webster MD Attending Clinician CRISTELA WEBSTER Attending Clinician Unavailable Lab, Adc Fam Pob I Attending Clinician Unavailab MEME Ontiveros Attending Clinician Unavailable Lizabeth Lee RN Attending Clinician Unav ailable AJ, KARENJENN DAIANA Admitting Clinician Unavaila CRISTELA Alfonso Admitting Clinician Unavailable Payers Payer Name Policy Type Policy Number Effective Date Expirati on Date Source [facility] PLUS [id number] 2020 00:00:00 [facility] PLUS [id number] [facility] Problems Condition Name Condition Details Condition Category Status Onset Date Resolution Date Last Treatment Date Treating Clinician Comments Source No known active problems No known active problems Disease Univers [facility] Iron deficiency anemia Anemia, iron deficiency Problem [facility] Vitamin D deficiency Vitamin D deficiency Problem [facility] Vitamin B12 deficiency Vitamin B12 deficiency Problem [facility] [id number] Acquired absence of other parts of urinary tract Problem [facility] [id number] Acquired absence of kidney Problem [facility] [id number] Urothelial carcinoma of right distal ureter Problem [facility] Neuropathy Neuropathy Problem [facility] Hypertensi ve heart disease Hypertensi ve heart disease Problem [facility] Posttrauma tic stress disorder PTSD (post-trau matic stress disorder) Problem [facility] 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 Hx of heart artery stent Problem [facility] Smoker Smoker Problem [facility] History of hysterecto my History of hysterecto my Problem [facility] Gastroesop hageal reflux disease GERD (gastroeso phageal reflux disease) Problem [facility] Absent kidney History of right nephrectom y Problem [facility] COPD - Chronic obstructiv e pulmonary disease COPD (chronic obstructiv e pulmonary disease) Problem [facility] [id number] History of blood transfusio n Problem [facility] Dizziness Dizziness Problem Comm on [facility] Coronary artery disease CAD (coronary artery disease) Problem [facility] Hyperlipid aemia HLD (hyperlipi demia) Problem [facility] SI - Stress incontinen ce Stress incontinen ce Problem [facility] Bladder cancer Bladder cancer Problem [facility] Pulmonary nodule Pulmonary nodule Problem [facility] [id number] 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 Problem [facility] [id number] Urothelial carcinoma of bladder without invasion of muscle Problem [facility] Allergies, Adverse Reactions, Alerts Allergy Name Allergy Type Status Severity Reaction(s) Onset Date Inactive Date Treating Clinician Comments Source NO KNOWN ALLERGIE S Drug Class Active [facility] Social History Social Habit Start Date Stop Date Quantity Comments Source Gender identity [facility] Sexual orientation U [facility] Sex Assigned At [facility] History of Social function 2023-06-08 00:00:00 2023-06-08 00:00:00 [facility] Alcohol intake 2022-09-24 00:00:00 2022-09-24 00:00:00 Ex-drinker (finding) [facility] Alcoholic beverage intake 2022-09-24 00:00:00 2022-09-24 00:00:00 Ex-drinker (finding) [facility] Exposure to SARS-CoV-2 (event) 2022-06-21 00:00:00 2022-07-01 10:53:00 Not sure [facility] Tobacco use and exposure 2022-07-01 00:00:00 2022-07-01 00:00:00 Smokeless tobacco non-user [facility] History of tobacco use 2020-08-14 00:00:00 Cigarette Smoker [facility] Smoking Status Start Date Stop Date Source Ex-smoker 2022-07-01 00:00:00 2022-07[facility]01 [facility] Smoker 2022-01-10 00:00:00 [facility] Medications Ordered Medication Name Filled Medication Name Start Date Stop Date Current Medication? Ordering Clinician Indication Dosage Frequency Signature (SIG) Comments Components Source MONTELUKAST 10 mg tablet - 00:00: 00 Yes [id number] TAKE ONE (1) TABLET BY MOUTH IN THE MORNING. [facility] FAMOTIDINE 20 mg tablet 8- 00:00: 00 Yes [id number] TAKE ONE (1) TABLET BY MOUTH IN THE MORNING AND EVENING. [facility] atorvastati n 80 mg tablet 7-11 00:00: 00 Yes [id number] 80mg TAKE ONE (1) TABLET(S) BY MOUTH AT BEDTIME. [facility] FAMOTIDINE 20 mg tablet 6- 00:00: 00 Yes [id number] TAKE ONE (1) TABLET BY MOUTH IN THE MORNING AND EVENING. [facility] famotidine 20 mg tablet 0 - 00:00: 00 09-08 00:00 :00 No [id number] TAKE ONE (1) TABLET BY MOUTH IN THE MORNING AND EVENING. [facility] FAMOTIDINE 20 mg tablet 0 5-14 00:00: 00 08-03 00:00 :00 No [id number] TAKE ONE (1) TABLET BY MOUTH IN THE MORNING AND EVENING. [facility] OMEPRAZOLE 40 mg capsule 5- 00:00: 00 Yes TAKE ONE (1) CAPSULE(S) BY MOUTH IN THE MORNING. [facility] MONTELUKAST 10 mg tablet 0 -22 00:00: 00 10-15 00:00 :00 No [id number] TAKE ONE (1) TABLET BY MOUTH IN THE MORNING. [facility] FAMOTIDINE 20 mg tablet 0 4-11 00:00: 00 07-27 00:00 :00 No [id number] TAKE ONE (1) TABLET BY MOUTH IN THE MORNING AND 1 TABLET IN THE EVENING. [facility] lisinopriL 20 mg tablet 4-05 00:00: 00 Yes [id number] 10mg Take 0.5 tablets by mouth in the morning and 0.5 tablets in the evening. [facility] FAMOTIDINE 20 mg tablet 3-11 00:00: 00 06-24 00:00 :00 No TAKE ONE (1) TABLET BY MOUTH IN THE MORNING AND 1 TABLET IN THE EVENING. [facility] famotidine 20 mg tablet 2-22 00:00: 00 05-24 00:00 :00 No TAKE ONE (1) TABLET BY MOUTH IN THE MORNING AND 1 TABLET IN THE EVENING. [facility] famotidine 20 mg tablet 1-25 00:00: 00 Yes TAKE ONE (1) TABLET BY MOUTH IN THE MORNING AND 1 TABLET IN THE EVENING. [facility] MONTELUKAST 10 mg tablet - 00:00: 00 07-05 00:00 :00 No [id number] TAKE ONE (1) TABLET BY MOUTH IN THE MORNING. [facility] aspirin 81 mg chewable tablet 04-01 10:03: 42 Yes 81mg Take 1 tablet by mouth in the morning. [facility] budesonide- formoteroL 160-4.5 mcg/actuati on inhaler 04-01 10:03: 42 Yes 2{puff} Inhale 2 Puffs in the morning. [facility] fluticasone propionate 50 mcg/actuati on nasal spray 04-01 10:03: 42 Yes Use in each nostril daily. [facility] ALBUTEROL INHALE 04-01 10:03: 42 Yes Inhale daily. [facility] fluticasone propionate 50 mcg/actuati on nasal spray 04-01 10:03: 42 Yes Use in each nostril daily. [facility] empaglifloz in 10 mg tablet 04-01 00:00: 00 Yes [id number] 10mg Take 1 tablet by mouth in the morning. Recommende d labs to be done 2 weeks after starting the medication . [facility] ondansetron 4 mg tablet 2022-03 00:00: 00 Yes 4mg TAKE ONE (1) TABLET(S) BY MOUTH EVERY EIGHT HOURS NEEDED FOR NAUSEA AND VOMITING. [facility] FAMOTIDINE 20 mg tablet 2022-03 0 00:00: 00 04-09 00:00 :00 No TAKE ONE (1) TABLET BY MOUTH IN THE MORNING AND 1 TABLET IN THE EVENING. [facility] omeprazole 40 mg capsule 12-08 00:00: 00 07-14 00:00 :00 No 40mg Take 1 capsule by mouth in the morning. [facility] montelukast 10 mg tablet 10-09 00:00: 00 04-06 00:00 :00 No [id number] 10mg Take 1 tablet by mouth in the morning. [facility] famotidine (PEPCID) 20 mg tablet 10-09 00:00: 00 12-19 00:00 :00 No 20mg Take 1 tablet by mouth in the morning and 1 tablet in the evening. [facility] aspirin 81 mg chewable tablet 09-24 13:07: 10 Yes 81mg Take 81 mg by mouth daily. [facility] metoprolol tartrate 50 mg tablet 09-24 00:00: 00 Yes [id number] 75mg Take 1.5 tablets by mouth in the morning and 1.5 tablets in the evening. [facility] atorvastati n 80 mg tablet 09-24 00:00: 00 09-23 00:00 :00 No [id number] 80mg Take 1 tablet by mouth at bedtime. [facility] lisinopriL 20 mg tablet 09-24 00:00: 00 06-18 00:00 :00 No [id number] 10mg Take 0.5 tablets by mouth in the morning and 0.5 tablets in the evening. [facility] metoprolol tartrate 50 mg tablet 6-05 00:00: 00 09-24 00:00 :00 No [id number] 75mg Take 1.5 tablets by mouth in the morning and 1.5 tablets in the evening. [facility] venlafaxine XR 75 mg 24 hr capsule 4-18 11:08: 02 07-01 00:00 :00 No 75mg Take 75 mg by mouth daily with breakfast. [facility] budesonide- formoteroL 160-4.5 mcg/actuati on inhaler 18 11:07: 42 Yes 2{puff} Inhale 2 Puffs in the morning. [facility] fluticasone propionate 50 mcg/actuati on nasal spray 18 11:07: 42 Yes Use in each nostril daily. [facility] omeprazole 40 mg capsule 4-10 00:00: 00 12-07 00:00 :00 No 40mg Take 1 capsule by mouth in the morning. [facility] MONTELUKAST 10 mg tablet 4-10 00:00: 00 10-08 00:00 :00 No [id number] TAKE ONE (1) TABLET(S) BY MOUTH ONCE A DAY. [facility] lisinopriL 20 mg tablet 4-10 00:00: 00 09-24 00:00 :00 No [id number] 20mg Take 1 tablet by mouth in the morning. [facility] LISINOPRIL 20 mg tablet 3-02 00:00: 00 06-23 00:00 :00 No [id number] TAKE ONE (1) TABLET BY MOUTH IN THE MORNING. [facility] ATORVASTATI N 80 mg tablet 1-18 00:00: 00 09-24 00:00 :00 No TAKE ONE (1) TABLET(S) BY MOUTH AT BEDTIME. [facility] budesonide- formoteroL 160-4.5 mcg/actuati on inhaler -12 13:45: 44 Yes 2{puff} Inhale 2 Puffs daily. [facility] fluticasone propionate 50 mcg/actuati on nasal spray 03-27 13:45: 43 Yes Use in each nostril daily. [facility] aspirin 81 mg chewable tablet 03-27 13:29: 50 Yes 81mg Take 81 mg by mouth daily. [facility] MONTELUKAST 10 mg tablet 2021-03 00:00: 00 06-23 00:00 :00 No [id number] TAKE ONE (1) TABLET(S) BY MOUTH ONCE A DAY. [facility] ONDANSETRON 4 mg tablet 2021-03 00:00: 00 07-01 00:00 :00 No [id number] TAKE ONE (1) TABLET(S) BY MOUTH EVERY EIGHT HOURS NEEDED FOR NAUSEA AND VOMITING. [facility] ATORVASTATI N 80 mg tablet 2021-03 00:00: 00 04-02 00:00 :00 No TAKE ONE (1) TABLET(S) BY MOUTH AT BEDTIME. [facility] lisinopriL (PRINIVIL) 20 mg tablet 2021-03 00:00: 00 05-15 00:00 :00 No [id number] 20mg Take 1 tablet by mouth in the morning. [facility] metoprolol tartrate 50 mg tablet 2021-03 00:00: 00 08-18 00:00 :00 No [id number] 75mg Take 1.5 tablets by mouth in the morning and 1.5 tablets in the evening. [facility] metoprolol tartrate 50 mg tablet 08-05 00:00: 00 Yes [id number] 75mg Take 1.5 tablets by mouth 2 (two) times daily. [facility] venlafaxine XR 75 mg 24 hr capsule 07-29 10:07: 29 Yes 75mg Take 75 mg by mouth daily with breakfast. [facility] aspirin 81 mg chewable tablet 2022-0 5-16 10:07: 29 Yes 81mg Take 81 mg by mouth daily. [facility] fluticasone propionate 50 mcg/actuati on nasal spray 16 10:07: 29 Yes Use in each nostril daily. [facility] ALBUTEROL INHALE 16 10:07: 29 Yes Inhale daily. [facility] mirtazapine 7.5 mg tablet 07-20 00:00: 00 07-01 00:00 :00 No TAKE ONE (1) TABLET(S) BY MOUTH ONCE A DAY AT BEDTIME NEEDED. [facility] mirtazapine 7.5 mg tablet 07-19 00:00: 00 07-01 00:00 :00 No [facility] omeprazole 40 mg capsule 07-11 00:00: 00 06-23 00:00 :00 No 40mg Take 1 capsule by mouth daily. [facility] montelukast 10 mg tablet 28 00:00: 00 02-19 00:00 :00 No [id number] 10mg Take 1 tablet by mouth daily. [facility] atorvastati n 80 mg tablet -14 00:00: 00 12-26 00:00 :00 No 80mg Take 1 tablet by mouth at bedtime. [facility] lisinopriL (PRINIVIL) 20 mg tablet -14 00:00: 00 12-23 00:00 :00 No 20mg Take 1 tablet by mouth daily. [facility] famotidine (PEPCID) 20 mg tablet 3-15 00:00: 00 10-08 00:00 :00 No 20mg Take 1 tablet by mouth 2 (two) times daily. [facility] ondansetron 4 mg tablet 3-15 00:00: 00 02-10 00:00 :00 No [id number] 4mg Take 1 tablet by mouth every 8 (eight) hours as needed for Nausea and Vomiting (N/V). [facility] omeprazole 40 mg capsule 3-15 00:00: 00 07-10 00:00 :00 No 40mg Take 1 capsule by mouth daily. [facility] budesonide- formoteroL 160-4.5 mcg/actuati on inhaler 3-11 14:56: 40 Yes 2{puff} Inhale 2 Puffs in the morning. [facility] montelukast 10 mg tablet 2-23 00:00: 00 07-10 00:00 :00 No [id number] 10mg Take 1 tablet by mouth daily. [facility] atorvastati n 80 mg tablet 2020-03 0-13 15:45: 38 12-26 00:00 :00 No 80mg Take 80 mg by mouth at bedtime. [facility] atorvastati n 80 mg tablet 2020-03 0- 00:00: 00 06-26 00:00 :00 No 80mg Take 1 tablet by mouth at bedtime. [facility] lisinopriL (PRINIVIL) 20 mg tablet 2020-03 0-13 00:00: 00 06-26 00:00 :00 No 20mg Take 1 tablet by mouth daily. [facility] lisinopriL (PRINIVIL) 20 mg tablet 9-21 00:00: 00 12-26 00:00 :00 No 20mg Take 1 tablet by mouth daily. [facility] metoprolol tartrate 50 mg tablet -28 00:00: 00 05-27 00:00 :00 No 75mg Take 1.5 tablets by mouth 2 (two) times daily. [facility] omeprazole 40 mg capsule - 00:00: 00 05-27 00:00 :00 No 40mg Take 1 capsule by mouth daily. [facility] famotidine (PEPCID) 20 mg tablet - 00:00: 00 05-27 00:00 :00 No 20mg Take 1 tablet by mouth 2 (two) times daily. [facility] montelukast 10 mg tablet 7 00:00: 00 05-08 00:00 :00 No 10mg Take 1 tablet by mouth daily. [facility] ondansetron 4 mg tablet 7-06 00:00: 00 05-27 00:00 :00 No [id number] 4mg Take 1 tablet by mouth every 8 (eight) hours as needed for Nausea and Vomiting (N/V). [facility] Gabapentin 100 MG Gabapentin 100 MG 3-31 00:00: 00 No 1{capsu le} Gabapentin 100 MG Vitamin B12 (Cyanocobal brewster) Vitamin B12 (Cyanocobal brewster) 3- 00:00: 00 No 1000ug [facility] Tessalon Perles 100 MG Tessalon Perles 100 MG 1-04 00:00: 00 04-30 00:00 :00 No 1{capsu le_as_n eeded} TID Tessalon Perles 100 MG Tessalon Perles 100 MG Tessalon Perles 100 MG 1-04 00:00: 00 04-30 00:00 :00 No 1{capsu le_as_n eeded} TID Tessalon Perles 100 MG Zyrtec Allergy 10 MG Zyrtec Allergy 10 MG 1-04 00:00: 00 04-02 00:00 :00 No 1{table t} BID Zyrtec Allergy 10 MG Zyrtec Allergy 10 MG Zyrtec Allergy 10 MG 1-04 00:00: 00 04-02 00:00 :00 No 1{table t} BID Zyrtec Allergy 10 MG Zithromax 500 MG Zithromax 500 MG 1-04 00:00: 00 03-26 00:00 :00 No 1{table t} QD Zithromax 500 MG Zithromax 500 MG Zithromax 500 MG 1-04 00:00: 00 03-26 00:00 :00 No 1{table t} QD Zithromax 500 MG MethylPREDN ISolone 4 MG MethylPREDN ISolone 4 MG 1- 00:00: 00 03-24 00:00 :00 No MethylPRED NISolone 4 MG MethylPREDN ISolone 4 MG MethylPREDN ISolone 4 MG 0 1- 00:00: 00 03-24 00:00 :00 No MethylPRED NISolone 4 MG ProAir HFA 108 (90 Base) MCG/ACT ProAir HFA 108 (90 Base) MCG/ACT 2019-03 2-16 00:00: 00 No 1{puff_ as_need ed} 6xD ProAir HFA 108 (90 Base) MCG/ACT ProAir HFA 108 (90 Base) MCG/ACT ProAir HFA 108 (90 Base) MCG/ACT 2019-03 2-16 00:00: 00 No 1{puff_ as_need ed} 6xD ProAir HFA 108 (90 Base) MCG/ACT ProAir HFA 108 (90 Base) MCG/ACT ProAir HFA 108 (90 Base) MCG/ACT 2019-03 2-16 00:00: 00 No 1{puff_ as_need ed} 6xD ProAir HFA 108 (90 Base) MCG/ACT ProAir HFA 108 (90 Base) MCG/ACT ProAir HFA 108 (90 Base) MCG/ACT 2019-03 2-16 00:00: 00 No 1{puff_ as_need ed} 6xD ProAir HFA 108 (90 Base) MCG/ACT ProAir HFA 108 (90 Base) MCG/ACT ProAir HFA 108 (90 Base) MCG/ACT 2019-03 2-16 00:00: 00 No 1{puff_ as_need ed} 6xD ProAir HFA 108 (90 Base) MCG/ACT ProAir HFA 108 (90 Base) MCG/ACT ProAir HFA 108 (90 Base) MCG/ACT 2019-03 2-16 00:00: 00 No 1{puff_ as_need ed} 6xD ProAir HFA 108 (90 Base) MCG/ACT Ferrous Sulfate 325 (65 Fe) MG Ferrous Sulfate 325 (65 Fe) MG 2019-03 1-03 00:00: 00 No 1{table t} QD Ferrous Sulfate 325 (65 Fe) MG Proventil HFA 108 (90 Base) MCG/ACT Proventil HFA 108 (90 Base) MCG/ACT No 1{puff_ as_need ed} 6xD Proventil HFA 108 (90 Base) MCG/ACT Ativan 2 MG Ativan 2 MG No 1{table t_at_be dtime_a s_neede d} QD Ativan 2 MG Singulair 10 MG Singulair 10 MG No 1{table t} QD Singulair 10 MG Metoprolol Tartrate 50 MG Metoprolol Tartrate 50 MG No 1{table t_with_ food} BID Metoprolol Tartrate 50 MG Lisinopril 10 MG Lisinopril 10 MG No 1{table t} BID Lisinopril 10 MG Chantix 1 MG Chantix 1 MG No Chantix 1 MG Venlafaxine HCl ER 75 MG Venlafaxine HCl ER 75 MG No 1{capsu le_with _food} QD Venlafaxin e HCl ER 75 MG Aspirin 81 81 MG Aspirin 81 81 MG No 1{table t} QD Aspirin 81 81 MG Protonix 40 MG Protonix 40 MG No 1{table t} QD Protonix 40 MG Chantix 1 MG Chantix 1 MG No Chantix 1 MG Aspirin 81 81 MG Aspirin 81 81 MG No 1{table t} QD Aspirin 81 81 MG Lisinopril 10 MG Lisinopril 10 MG No 1{table t} QD Lisinopril 10 MG Singulair 10 MG Singulair 10 MG No 1{table t} QD Singulair 10 MG Ativan 2 MG Ativan 2 MG No 1{table t_at_be dtime_a s_neede d} QD Ativan 2 MG Proventil HFA 108 (90 Base) MCG/ACT Proventil HFA 108 (90 Base) MCG/ACT No 1{puff_ as_need ed} 6xD Proventil HFA 108 (90 Base) MCG/ACT Metoprolol Tartrate 50 MG Metoprolol Tartrate 50 MG No 1{table t_with_ food} BID Metoprolol Tartrate 50 MG Venlafaxine HCl ER 75 MG Venlafaxine HCl ER 75 MG No 1{capsu le_with _food} QD Venlafaxin e HCl ER 75 MG Protonix 40 MG Protonix 40 MG No 1{table t} QD Protonix 40 MG Lisinopril 20 MG Lisinopril 20 MG No 1{table t} QD Lisinopril 20 MG Albuterol Sulfate HFA 108 (90 Base) MCG/ACT Albuterol Sulfate HFA 108 (90 Base) MCG/ACT No Albuterol Sulfate HFA 108 (90 Base) MCG/ACT Protonix 40 MG Protonix 40 MG No 1{table t} QD Protonix 40 MG Lisinopril 20 MG Lisinopril 20 MG No 1{table t} QD Lisinopril 20 MG Ferrous Sulfate 325 (65 Fe) MG Ferrous Sulfate 325 (65 Fe) MG No 1{table t} QD Ferrous Sulfate 325 (65 Fe) MG Ativan 2 MG Ativan 2 MG No 1{table t_at_be dtime_a s_neede d} QD Ativan 2 MG Metoprolol Tartrate 50 MG Metoprolol Tartrate 50 MG No 1{table t_with_ food} BID Metoprolol Tartrate 50 MG Atorvastati n Calcium 80 MG Atorvastati n Calcium 80 MG No 1{table t} QD Atorvastat in Calcium 80 MG Proventil HFA 108 (90 Base) MCG/ACT Proventil HFA 108 (90 Base) MCG/ACT No 1{puff_ as_need ed} 6xD Proventil HFA 108 (90 Base) MCG/ACT Aspirin 81 81 MG Aspirin 81 81 MG No 1{table t} QD Aspirin 81 81 MG Singulair 10 MG Singulair 10 MG No 1{table t} QD Singulair 10 MG Lisinopril 10 MG Lisinopril 10 MG No 1{table t} QD Lisinopril 10 MG Venlafaxine HCl ER 75 MG Venlafaxine HCl ER 75 MG No 1{capsu le_with _food} QD Venlafaxin e HCl ER 75 MG Chantix 1 MG Chantix 1 MG No BID Chantix 1 MG Benzonatate 100 MG Benzonatate 100 MG No Benzonatat e 100 MG Ergocalcife rol 1.25 MG (19754 UT) Ergocalcife rol 1.25 MG (62382 UT) No 1{capsu le} Ergocalcif luis 1.25 MG (87200 UT) Chantix 1 MG Chantix 1 MG No BID Chantix 1 MG Proventil HFA 108 (90 Base) MCG/ACT Proventil HFA 108 (90 Base) MCG/ACT No 1{puff_ as_need ed} 6xD Proventil HFA 108 (90 Base) MCG/ACT Venlafaxine HCl ER 75 MG Venlafaxine HCl ER 75 MG No 1{capsu le_with _food} QD Venlafaxin e HCl ER 75 MG Metoprolol Tartrate 50 MG Metoprolol Tartrate 50 MG No 1{table t_with_ food} BID Metoprolol Tartrate 50 MG Lisinopril 10 MG Lisinopril 10 MG No 1{table t} QD Lisinopril 10 MG Tessalon Perles 100 MG Tessalon Perles 100 MG No 1{capsu le_as_n eeded} TID Tessalon Perles 100 MG Ferrous Sulfate 325 (65 Fe) MG Ferrous Sulfate 325 (65 Fe) MG No 1{table t} QD Ferrous Sulfate 325 (65 Fe) MG Aspirin 81 81 MG Aspirin 81 81 MG No 1{table t} QD Aspirin 81 81 MG Ergocalcife rol 1.25 MG (04123 UT) Ergocalcife rol 1.25 MG (57211 UT) No 1{capsu le} Ergocalcif luis 1.25 MG (44350 UT) Protonix 40 MG Protonix 40 MG No 1{table t} QD Protonix 40 MG Singulair 10 MG Singulair 10 MG No 1{table t} QD Singulair 10 MG Ativan 2 MG Ativan 2 MG No 1{table t_at_be dtime_a s_neede d} QD Ativan 2 MG Benzonatate 100 MG Benzonatate 100 MG No Benzonatat e 100 MG Atorvastati n Calcium 80 MG Atorvastati n Calcium 80 MG No 1{table t} QD Atorvastat in Calcium 80 MG Lisinopril 20 MG Lisinopril 20 MG No 1{table t} QD Lisinopril 20 MG Venlafaxine HCl ER 75 MG Venlafaxine HCl ER 75 MG No 1{capsu le_with _food} QD Venlafaxin e HCl ER 75 MG Ferrous Sulfate 325 (65 Fe) MG Ferrous Sulfate 325 (65 Fe) MG No 1{table t} QD Ferrous Sulfate 325 (65 Fe) MG Tessalon Perles 100 MG Tessalon Perles 100 MG No 1{capsu le_as_n eeded} TID Tessalon Perles 100 MG Chantix 1 MG Chantix 1 MG No BID Chantix 1 MG Ativan 2 MG Ativan 2 MG No 1{table t_at_be dtime_a s_neede d} QD Ativan 2 MG Atorvastati n Calcium 80 MG Atorvastati n Calcium 80 MG No 1{table t} QD Atorvastat in Calcium 80 MG Metoprolol Tartrate 50 MG Metoprolol Tartrate 50 MG No 1{table t_with_ food} BID Metoprolol Tartrate 50 MG Singulair 10 MG Singulair 10 MG No 1{table t} QD Singulair 10 MG Protonix 40 MG Protonix 40 MG No 1{table t} QD Protonix 40 MG Aspirin 81 81 MG Aspirin 81 81 MG No 1{table t} QD Aspirin 81 81 MG Gabapentin 100 MG Gabapentin 100 MG No 1{capsu le} Gabapentin 100 MG Benzonatate 100 MG Benzonatate 100 MG No Benzonatat e 100 MG Lisinopril 10 MG Lisinopril 10 MG No 1{table t} BID Lisinopril 10 MG Proventil HFA 108 (90 Base) MCG/ACT Proventil HFA 108 (90 Base) MCG/ACT No 1{puff_ as_need ed} 6xD Proventil HFA 108 (90 Base) MCG/ACT Lisinopril 20 MG Lisinopril 20 MG No 1{table t} QD Lisinopril 20 MG Ergocalcife rol 1.25 MG (77047 UT) Ergocalcife rol 1.25 MG (57130 UT) No 1{capsu le} Ergocalcif luis 1.25 MG (94750 UT) Lisinopril 10 MG Lisinopril 10 MG No 1{table t} BID Lisinopril 10 MG Singulair 10 MG Singulair 10 MG No 1{table t} QD Singulair 10 MG Chantix 1 MG Chantix 1 MG No BID Chantix 1 MG Ferrous Sulfate 325 (65 Fe) MG Ferrous Sulfate 325 (65 Fe) MG No 1{table t} TID Ferrous Sulfate 325 (65 Fe) MG Metoprolol Tartrate 50 MG Metoprolol Tartrate 50 MG No 1{table t_with_ food} BID Metoprolol Tartrate 50 MG Fluticasone Propionate 50 MCG/ACT Fluticasone Propionate 50 MCG/ACT No 1{spray _in_eac h_nostr il} QD Fluticason e Propionate 50 MCG/ACT Proventil HFA 108 (90 Base) MCG/ACT Proventil HFA 108 (90 Base) MCG/ACT No 1{puff_ as_need ed} 6xD Proventil HFA 108 (90 Base) MCG/ACT Lisinopril 20 MG Lisinopril 20 MG No 1{table t} QD Lisinopril 20 MG Ativan 2 MG Ativan 2 MG No 1{table t_at_be dtime_a s_neede d} QD Ativan 2 MG Venlafaxine HCl ER 75 MG Venlafaxine HCl ER 75 MG No 1{capsu le_with _food} QD Venlafaxin e HCl ER 75 MG Benzonatate 100 MG Benzonatate 100 MG No Benzonatat e 100 MG Aspirin 81 81 MG Aspirin 81 81 MG No 1{table t} QD Aspirin 81 81 MG Ergocalcife rol 1.25 MG (60394 UT) Ergocalcife rol 1.25 MG (51558 UT) No 1{capsu le} Ergocalcif luis 1.25 MG (41088 UT) Protonix 40 MG Protonix 40 MG No 1{table t} QD Protonix 40 MG Tessalon Perles 100 MG Tessalon Perles 100 MG No 1{capsu le_as_n eeded} TID Tessalon Perles 100 MG Gabapentin 100 MG Gabapentin 100 MG No 1{capsu le} Gabapentin 100 MG Atorvastati n Calcium 80 MG Atorvastati n Calcium 80 MG No 1{table t} QD Atorvastat in Calcium 80 MG Aspirin 81 81 MG Aspirin 81 81 MG No 1{table t} QD Aspirin 81 81 MG Singulair 10 MG Singulair 10 MG No 1{table t} QD Singulair 10 MG Atorvastati n Calcium 80 MG Atorvastati n Calcium 80 MG No 1{table t} QD Atorvastat in Calcium 80 MG Metoprolol Tartrate 50 MG Metoprolol Tartrate 50 MG No 1{table t_with_ food} BID Metoprolol Tartrate 50 MG Chantix 1 MG Chantix 1 MG No BID Chantix 1 MG Lisinopril 10 MG Lisinopril 10 MG No 1{table t} BID Lisinopril 10 MG Ergocalcife rol 1.25 MG (56934 UT) Ergocalcife rol 1.25 MG (16621 UT) No 1{capsu le} Ergocalcif luis 1.25 MG (73508 UT) Lisinopril 20 MG Lisinopril 20 MG No 1{table t} QD Lisinopril 20 MG Tessalon Perles 100 MG Tessalon Perles 100 MG No 1{capsu le_as_n eeded} TID Tessalon Perles 100 MG Ferrous Sulfate 325 (65 Fe) MG Ferrous Sulfate 325 (65 Fe) MG No 1{table t} TID Ferrous Sulfate 325 (65 Fe) MG Venlafaxine HCl ER 75 MG Venlafaxine HCl ER 75 MG No 1{capsu le_with _food} QD Venlafaxin e HCl ER 75 MG Benzonatate 100 MG Benzonatate 100 MG No Benzonatat e 100 MG Aspirin 81 81 MG Aspirin 81 81 MG No 1{table t} QD Aspirin 81 81 MG Ativan 2 MG Ativan 2 MG No 1{table t_at_be dtime_a s_neede d} QD Ativan 2 MG Proventil HFA 108 (90 Base) MCG/ACT Proventil HFA 108 (90 Base) MCG/ACT No 1{puff_ as_need ed} 6xD Proventil HFA 108 (90 Base) MCG/ACT Protonix 40 MG Protonix 40 MG No 1{table t} QD Protonix 40 MG Gabapentin 100 MG Gabapentin 100 MG No 1{capsu le} Gabapentin 100 MG Fluticasone Propionate 50 MCG/ACT Fluticasone Propionate 50 MCG/ACT No 1{spray _in_eac h_nostr il} QD Fluticason e Propionate 50 MCG/ACT Immunizations Ordered Immunization Name Filled Immunization Name Date Status Comments Source Influenza Virus Vaccine Quad IM, Preserv and ABX Free 6 MO-64 YRS 2021-05-24 00:00:00 Completed [facility] Influenza Virus Vaccine Quad IM, Preserv and ABX Free 6 MO-64 YRS 2021-05-24 00:00:00 Completed [facility] Influenza Virus Vaccine Quad IM, Preserv and ABX Free 6 MO-64 YRS 2021-05-24 00:00:00 Completed [facility] Influenza Virus Vaccine Quad IM, Preserv and ABX Free 6 MO-64 YRS 2021-05-24 00:00:00 Completed [facility] Influenza Virus Vaccine Quad IM, Preserv and ABX Free 6 MO-64 YRS 2021-05-24 00:00:00 Completed [facility] Influenza Virus Vaccine Quad IM, Preserv and ABX Free 6 MO-64 YRS 2021-05-24 00:00:00 Completed [facility] Influenza Virus Vaccine Quad IM, Preserv and ABX Free 6 MO-64 YRS 2021-05-24 00:00:00 Completed [facility] Influenza Virus Vaccine Quad IM, Preserv and ABX Free 6 MO-64 YRS 2021-05-24 00:00:00 Completed [facility] Influenza Virus Vaccine Quad IM, Preserv and ABX Free 6 MO-64 YRS 2021-05-24 00:00:00 Completed [facility] Influenza Virus Vaccine Quad IM, Preserv and ABX Free 6 MO-64 YRS 2021-05-24 00:00:00 Completed [facility] Influenza Virus Vaccine Quad IM, Preserv and ABX Free 6 MO-64 YRS 2021-05-24 00:00:00 Completed [facility] Influenza Virus Vaccine Quad IM, Preserv and ABX Free 6 MO-64 YRS 2021-05-24 00:00:00 Completed [facility] Influenza Virus Vaccine Quad IM, Preserv and ABX Free 6 MO-64 YRS 2021-05-24 00:00:00 Completed [facility] Influenza Virus Vaccine Quad IM, Preserv and ABX Free 6 MO-64 YRS 2021-05-24 00:00:00 Completed [facility] Influenza Virus Vaccine Quad IM, Preserv and ABX Free 6 MO-64 YRS 2021-05-24 00:00:00 Completed [facility] Influenza Virus Vaccine Quad IM, Preserv and ABX Free 6 MO-64 YRS 2021-05-24 00:00:00 Completed [facility] Influenza Virus Vaccine Quad IM, Preserv and ABX Free 6 MO-64 YRS 2021-05-24 00:00:00 Completed [facility] Influenza Virus Vaccine Quad IM, Preserv and ABX Free 6 MO-64 YRS 2021-05-24 00:00:00 Completed [facility] Influenza Virus Vaccine Quad IM, Preserv and ABX Free 6 MO-64 YRS 2021-05-24 00:00:00 Completed [facility] Influenza Virus Vaccine Quad IM, Preserv and ABX Free 6 MO-64 YRS 2021-05-24 00:00:00 Completed [facility] Influenza Virus Vaccine Quad IM, Preserv and ABX Free 6 MO-64 YRS 2021-05-24 00:00:00 Completed [facility] Influenza Virus Vaccine Quad IM, Preserv and ABX Free 6 MO-64 YRS 2021-05-24 00:00:00 Completed [facility] Influenza Virus Vaccine Quad IM, Preserv and ABX Free 6 MO-64 YRS 2021-05-24 00:00:00 Completed [facility] Influenza Virus Vaccine Quad IM, Preserv and ABX Free 6 MO-64 YRS 2021-05-24 00:00:00 Completed [facility] Influenza Virus Vaccine Quad IM, Preserv and ABX Free 6 MO-64 YRS 2021-05-24 00:00:00 Completed [facility] Influenza Virus Vaccine Quad IM, Preserv and ABX Free 6 MO-64 YRS 2021-05-24 00:00:00 Completed [facility] Influenza Virus Vaccine Quad IM, Preserv and ABX Free 6 MO-64 YRS 2021-05-24 00:00:00 Completed [facility] Influenza Virus Vaccine Quad IM, Preserv and ABX Free 6 MO-64 YRS 2021-05-24 00:00:00 Completed [facility] Influenza Virus Vaccine Quad IM, Preserv and ABX Free 6 MO-64 YRS 2021-05-24 00:00:00 Completed [facility] Influenza Virus Vaccine Quad IM, Preserv and ABX Free 6 MO-64 YRS 2021-05-24 00:00:00 Completed [facility] Influenza Virus Vaccine Quad IM, Preserv and ABX Free 6 MO-64 YRS 2021-05-24 00:00:00 Completed [facility] Influenza Virus Vaccine Quad IM, Preserv and ABX Free 6 MO-64 YRS 2021-05-24 00:00:00 Completed [facility] Influenza Virus Vaccine Quad IM, Preserv and ABX Free 6 MO-64 YRS 2021-05-24 00:00:00 Completed [facility] Influenza Virus Vaccine Quad IM, Preserv and ABX Free 6 MO-64 YRS 2021-05-24 00:00:00 Completed [facility] Influenza Virus Vaccine Quad IM, Preserv and ABX Free 6 MO-64 YRS 2021-05-24 00:00:00 Completed [facility] Influenza Virus Vaccine Quad IM, Preserv and ABX Free 6 MO-64 YRS 2021-05-24 00:00:00 Completed [facility] Influenza Virus Vaccine Quad IM, Preserv and ABX Free 6 MO-64 YRS (FLUCELVAX) 2021-05-24 00:00:00 Completed [facility] SARS-COV-2 COVID-19 PFIZER VACCINE 2020-10-09 00:00:00 Completed [facility] SARS-COV-2 COVID-19 PFIZER VACCINE 2020-10-09 00:00:00 Completed [facility] SARS-COV-2 COVID-19 PFIZER VACCINE 2020-10-09 00:00:00 Completed [facility] SARS-COV-2 COVID-19 PFIZER VACCINE 2020-10-09 00:00:00 Completed [facility] SARS-COV-2 COVID-19 PFIZER VACCINE 2020-10-09 00:00:00 Completed [facility] SARS-COV-2 COVID-19 PFIZER VACCINE 2020-10-09 00:00:00 Completed [facility] SARS-COV-2 COVID-19 PFIZER VACCINE 2020-10-09 00:00:00 Completed [facility] SARS-COV-2 COVID-19 PFIZER VACCINE 2020-10-09 00:00:00 Completed [facility] SARS-COV-2 COVID-19 PFIZER VACCINE 2020-10-09 00:00:00 Completed [facility] SARS-COV-2 COVID-19 PFIZER VACCINE 2020-10-09 00:00:00 Completed [facility] SARS-COV-2 COVID-19 PFIZER VACCINE 2020-10-09 00:00:00 Completed [facility] SARS-COV-2 COVID-19 PFIZER VACCINE 2020-10-09 00:00:00 Completed [facility] SARS-COV-2 COVID-19 PFIZER VACCINE 2020-10-09 00:00:00 Completed [facility] SARS-COV-2 COVID-19 PFIZER VACCINE 2020-10-09 00:00:00 Completed [facility] SARS-COV-2 COVID-19 PFIZER VACCINE 2020-10-09 00:00:00 Completed [facility] SARS-COV-2 COVID-19 PFIZER VACCINE 2020-10-09 00:00:00 Completed [facility] SARS-COV-2 COVID-19 PFIZER VACCINE 2020-10-09 00:00:00 Completed [facility] SARS-COV-2 COVID-19 PFIZER VACCINE 2020-10-09 00:00:00 Completed [facility] SARS-COV-2 COVID-19 PFIZER VACCINE 2020-10-09 00:00:00 Completed [facility] SARS-COV-2 COVID-19 PFIZER VACCINE 2020-10-09 00:00:00 Completed [facility] SARS-COV-2 COVID-19 PFIZER VACCINE 2020-10-09 00:00:00 Completed [facility] SARS-COV-2 COVID-19 PFIZER VACCINE 2020-10-09 00:00:00 Completed [facility] SARS-COV-2 COVID-19 PFIZER VACCINE 2020-10-09 00:00:00 Completed [facility] SARS-COV-2 COVID-19 PFIZER VACCINE 2020-10-09 00:00:00 Completed [facility] SARS-COV-2 COVID-19 PFIZER VACCINE 2020-10-09 00:00:00 Completed [facility] SARS-COV-2 COVID-19 PFIZER VACCINE 2020-10-09 00:00:00 Completed [facility] SARS-COV-2 COVID-19 PFIZER VACCINE 2020-10-09 00:00:00 Completed [facility] SARS-COV-2 COVID-19 PFIZER VACCINE 2020-10-09 00:00:00 Completed [facility] SARS-COV-2 COVID-19 PFIZER VACCINE 2020-10-09 00:00:00 Completed [facility] SARS-COV-2 COVID-19 PFIZER VACCINE 2020-10-09 00:00:00 Completed [facility] SARS-COV-2 COVID-19 PFIZER VACCINE 2020-10-09 00:00:00 Completed [facility] SARS-COV-2 COVID-19 PFIZER VACCINE 2020-10-09 00:00:00 Completed [facility] SARS-COV-2 COVID-19 PFIZER VACCINE 2020-10-09 00:00:00 Completed [facility] SARS-COV-2 COVID-19 PFIZER VACCINE 2020-10-09 00:00:00 Completed [facility] SARS-COV-2 COVID-19 PFIZER VACCINE 2020-10-09 00:00:00 Completed [facility] SARS-COV-2 COVID-19 PFIZER VACCINE 2020-10-09 00:00:00 Completed [facility] SARS-COV-2 COVID-19 PFIZER VACCINE 2020-10-09 00:00:00 Completed [facility] SARS-COV-2 COVID-19 PFIZER VACCINE 2020-09-18 00:00:00 Completed [facility] SARS-COV-2 COVID-19 PFIZER VACCINE 2020-09-18 00:00:00 Completed [facility] SARS-COV-2 COVID-19 PFIZER VACCINE 2020-09-18 00:00:00 Completed [facility] SARS-COV-2 COVID-19 PFIZER VACCINE 2020-09-18 00:00:00 Completed [facility] SARS-COV-2 COVID-19 PFIZER VACCINE 2020-09-18 00:00:00 Completed [facility] SARS-COV-2 COVID-19 PFIZER VACCINE 2020-09-18 00:00:00 Completed [facility] SARS-COV-2 COVID-19 PFIZER VACCINE 2020-09-18 00:00:00 Completed [facility] SARS-COV-2 COVID-19 PFIZER VACCINE 2020-09-18 00:00:00 Completed [facility] SARS-COV-2 COVID-19 PFIZER VACCINE 2020-09-18 00:00:00 Completed [facility] SARS-COV-2 COVID-19 PFIZER VACCINE 2020-09-18 00:00:00 Completed [facility] SARS-COV-2 COVID-19 PFIZER VACCINE 2020-09-18 00:00:00 Completed [facility] SARS-COV-2 COVID-19 PFIZER VACCINE 2020-09-18 00:00:00 Completed [facility] SARS-COV-2 COVID-19 PFIZER VACCINE 2020-09-18 00:00:00 Completed [facility] SARS-COV-2 COVID-19 PFIZER VACCINE 2020-09-18 00:00:00 Completed [facility] SARS-COV-2 COVID-19 PFIZER VACCINE 2020-09-18 00:00:00 Completed [facility] SARS-COV-2 COVID-19 PFIZER VACCINE 2020-09-18 00:00:00 Completed [facility] SARS-COV-2 COVID-19 PFIZER VACCINE 2020-09-18 00:00:00 Completed [facility] SARS-COV-2 COVID-19 PFIZER VACCINE 2020-09-18 00:00:00 Completed [facility] SARS-COV-2 COVID-19 PFIZER VACCINE 2020-09-18 00:00:00 Completed [facility] SARS-COV-2 COVID-19 PFIZER VACCINE 2020-09-18 00:00:00 Completed [facility] SARS-COV-2 COVID-19 PFIZER VACCINE 2020-09-18 00:00:00 Completed [facility] SARS-COV-2 COVID-19 PFIZER VACCINE 2020-09-18 00:00:00 Completed [facility] SARS-COV-2 COVID-19 PFIZER VACCINE 2020-09-18 00:00:00 Completed [facility] SARS-COV-2 COVID-19 PFIZER VACCINE 2020-09-18 00:00:00 Completed [facility] SARS-COV-2 COVID-19 PFIZER VACCINE 2020-09-18 00:00:00 Completed [facility] SARS-COV-2 COVID-19 PFIZER VACCINE 2020-09-18 00:00:00 Completed [facility] SARS-COV-2 COVID-19 PFIZER VACCINE 2020-09-18 00:00:00 Completed [facility] SARS-COV-2 COVID-19 PFIZER VACCINE 2020-09-18 00:00:00 Completed [facility] SARS-COV-2 COVID-19 PFIZER VACCINE 2020-09-18 00:00:00 Completed [facility] SARS-COV-2 COVID-19 PFIZER VACCINE 2020-09-18 00:00:00 Completed [facility] SARS-COV-2 COVID-19 PFIZER VACCINE 2020-09-18 00:00:00 Completed [facility] SARS-COV-2 COVID-19 PFIZER VACCINE 2020-09-18 00:00:00 Completed [facility] SARS-COV-2 COVID-19 PFIZER VACCINE 2020-09-18 00:00:00 Completed [facility] SARS-COV-2 COVID-19 PFIZER VACCINE 2020-09-18 00:00:00 Completed [facility] SARS-COV-2 COVID-19 PFIZER VACCINE 2020-09-18 00:00:00 Completed [facility] SARS-COV-2 COVID-19 PFIZER VACCINE 2020-09-18 00:00:00 Completed [facility] SARS-COV-2 COVID-19 PFIZER VACCINE 2020-09-18 00:00:00 Completed [facility] Vitamin B12 (Cyanocobalamin) Vitamin B12 (Cyanocobalamin) 2020-05-23 15:18:00 Completed [facility] Vitamin B12 (Cyanocobalamin) Vitamin B12 (Cyanocobalamin) 2020-05-23 15:18:00 Completed [facility] Vitamin B12 (Cyanocobalamin) Vitamin B12 (Cyanocobalamin) 2020-05-23 15:18:00 Completed [facility] Vitamin B12 (Cyanocobalamin) Vitamin B12 (Cyanocobalamin) 2020-05-23 15:18:00 Completed [facility] Vitamin B12 (Cyanocobalamin) Vitamin B12 (Cyanocobalamin) 2020-05-23 15:18:00 Completed [facility] Vitamin B12 (Cyanocobalamin) Vitamin B12 (Cyanocobalamin) 2020-05-23 15:18:00 Completed [facility] Vitamin B12 (Cyanocobalamin) Vitamin B12 (Cyanocobalamin) 2020-05-23 15:18:00 Completed [facility] Vitamin B12 (Cyanocobalamin) Vitamin B12 (Cyanocobalamin) 2020-05-23 15:18:00 Completed [facility] Vitamin B12 (Cyanocobalamin) Vitamin B12 (Cyanocobalamin) 2020-05-23 15:18:00 Completed [facility] Vitamin B12 (Cyanocobalamin) Vitamin B12 (Cyanocobalamin) 2020-05-23 15:18:00 Completed [facility] Vitamin B12 (Cyanocobalamin) Vitamin B12 (Cyanocobalamin) 2020-05-23 15:18:00 Completed [facility] Vitamin B12 (Cyanocobalamin) Vitamin B12 (Cyanocobalamin) 2020-05-23 15:18:00 Completed [facility] Vitamin B12 (Cyanocobalamin) Vitamin B12 (Cyanocobalamin) 2020-05-23 15:18:00 Completed [facility] SARS-COV-2 COVID-19 PFIZER VACCINE Unknown Completed [facility] SARS-COV-2 COVID-19 PFIZER VACCINE Unknown Completed [facility] Influenza Virus Vaccine Quad IM, Preserv and ABX Free 6 MO-64 YRS (FLUCELVAX) Unknown Completed [facility] SARS-COV-2 COVID-19 PFIZER VACCINE Unknown Completed [facility] SARS-COV-2 COVID-19 PFIZER VACCINE Unknown Completed [facility] Influenza Virus Vaccine Quad IM, Preserv and ABX Free 6 MO-64 YRS (FLUCELVAX) Unknown Completed [facility] SARS-COV-2 COVID-19 PFIZER VACCINE Unknown Completed [facility] SARS-COV-2 COVID-19 PFIZER VACCINE Unknown Completed [facility] Influenza Virus Vaccine Quad IM, Preserv and ABX Free 6 MO-64 YRS (FLUCELVAX) Unknown Completed [facility] SARS-COV-2 COVID-19 PFIZER VACCINE Unknown Completed [facility] SARS-COV-2 COVID-19 PFIZER VACCINE Unknown Completed [facility] Influenza Virus Vaccine Quad IM, Preserv and ABX Free 6 MO-64 YRS (FLUCELVAX) Unknown Completed [facility] SARS-COV-2 COVID-19 PFIZER VACCINE Unknown Completed [facility] SARS-COV-2 COVID-19 PFIZER VACCINE Unknown Completed [facility] Influenza Virus Vaccine Quad IM, Preserv and ABX Free 6 MO-64 YRS (FLUCELVAX) Unknown Completed [facility] SARS-COV-2 COVID-19 PFIZER VACCINE Unknown Completed [facility] SARS-COV-2 COVID-19 PFIZER VACCINE Unknown Completed [facility] Influenza Virus Vaccine Quad IM, Preserv and ABX Free 6 MO-64 YRS (FLUCELVAX) Unknown Completed [facility] SARS-COV-2 COVID-19 PFIZER VACCINE Unknown Completed [facility] SARS-COV-2 COVID-19 PFIZER VACCINE Unknown Completed [facility] Influenza Virus Vaccine Quad IM, Preserv and ABX Free 6 MO-64 YRS (FLUCELVAX) Unknown Completed [facility] SARS-COV-2 COVID-19 PFIZER VACCINE Unknown Completed [facility] SARS-COV-2 COVID-19 PFIZER VACCINE Unknown Completed [facility] SARS-COV-2 COVID-19 PFIZER VACCINE Unknown Completed [facility] SARS-COV-2 COVID-19 PFIZER VACCINE Unknown Completed [facility] SARS-COV-2 COVID-19 PFIZER VACCINE Unknown Completed [facility] SARS-COV-2 COVID-19 PFIZER VACCINE Unknown Completed [facility] SARS-COV-2 COVID-19 PFIZER VACCINE Unknown Completed [facility] SARS-COV-2 COVID-19 PFIZER VACCINE Unknown Completed [facility] Influenza Virus Vaccine Quad IM, Preserv and ABX Free 6 MO-64 YRS (FLUCELVAX) Unknown Completed [facility] SARS-COV-2 COVID-19 PFIZER VACCINE Unknown Completed [facility] SARS-COV-2 COVID-19 PFIZER VACCINE Unknown Completed [facility] Influenza Virus Vaccine Quad IM, Preserv and ABX Free 6 MO-64 YRS (FLUCELVAX) Unknown Completed [facility] SARS-COV-2 COVID-19 PFIZER VACCINE Unknown Completed [facility] SARS-COV-2 COVID-19 PFIZER VACCINE Unknown Completed [facility] Influenza Virus Vaccine Quad IM, Preserv and ABX Free 6 MO-64 YRS (FLUCELVAX) Unknown Completed [facility] SARS-COV-2 COVID-19 PFIZER VACCINE Unknown Completed [facility] SARS-COV-2 COVID-19 PFIZER VACCINE Unknown Completed [facility] Influenza Virus Vaccine Quad IM, Preserv and ABX Free 6 MO-64 YRS (FLUCELVAX) Unknown Completed [facility] SARS-COV-2 COVID-19 PFIZER VACCINE Unknown Completed [facility] SARS-COV-2 COVID-19 PFIZER VACCINE Unknown Completed [facility] Influenza Virus Vaccine Quad IM, Preserv and ABX Free 6 MO-64 YRS (FLUCELVAX) Unknown Completed [facility] SARS-COV-2 COVID-19 PFIZER VACCINE Unknown Completed [facility] SARS-COV-2 COVID-19 PFIZER VACCINE Unknown Completed [facility] Influenza Virus Vaccine Quad IM, Preserv and ABX Free 6 MO-64 YRS (FLUCELVAX) Unknown Completed [facility] SARS-COV-2 COVID-19 PFIZER VACCINE Unknown Completed [facility] SARS-COV-2 COVID-19 PFIZER VACCINE Unknown Completed [facility] Influenza Virus Vaccine Quad IM, Preserv and ABX Free 6 MO-64 YRS (FLUCELVAX) Unknown Completed [facility] Influenza Virus Vaccine Quad IM, Preserv and ABX Free 6 MO-64 YRS (FLUCELVAX) Unknown Completed [facility] SARS-COV-2 COVID-19 PFIZER VACCINE Unknown Completed [facility] SARS-COV-2 COVID-19 PFIZER VACCINE Unknown Completed [facility] Influenza Virus Vaccine Quad IM, Preserv and ABX Free 6 MO-64 YRS (FLUCELVAX) Unknown Completed [facility] Influenza Virus Vaccine Quad IM, Preserv and ABX Free 6 MO-64 YRS (FLUCELVAX) Unknown Completed [facility] SARS-COV-2 COVID-19 PFIZER VACCINE Unknown Completed [facility] SARS-COV-2 COVID-19 PFIZER VACCINE Unknown Completed [facility] Influenza Virus Vaccine Quad IM, Preserv and ABX Free 6 MO-64 YRS (FLUCELVAX) Unknown Completed [facility] Influenza Virus Vaccine Quad IM, Preserv and ABX Free 6 MO-64 YRS (FLUCELVAX) Unknown Completed [facility] SARS-COV-2 COVID-19 PFIZER VACCINE Unknown Completed [facility] SARS-COV-2 COVID-19 PFIZER VACCINE Unknown Completed [facility] Influenza Virus Vaccine Quad IM, Preserv and ABX Free 6 MO-64 YRS (FLUCELVAX) Unknown Completed [facility] Influenza Virus Vaccine Quad IM, Preserv and ABX Free 6 MO-64 YRS (FLUCELVAX) Unknown Completed [facility] SARS-COV-2 COVID-19 PFIZER VACCINE Unknown Completed [facility] SARS-COV-2 COVID-19 PFIZER VACCINE Unknown Completed [facility] Influenza Virus Vaccine Quad IM, Preserv and ABX Free 6 MO-64 YRS (FLUCELVAX) Unknown Completed [facility] Influenza Virus Vaccine Quad IM, Preserv and ABX Free 6 MO-64 YRS (FLUCELVAX) Unknown Completed [facility] SARS-COV-2 COVID-19 PFIZER VACCINE Unknown Completed [facility] SARS-COV-2 COVID-19 PFIZER VACCINE Unknown Completed [facility] Influenza Virus Vaccine Quad IM, Preserv and ABX Free 6 MO-64 YRS (FLUCELVAX) Unknown Completed [facility] Influenza Virus Vaccine Quad IM, Preserv and ABX Free 6 MO-64 YRS (FLUCELVAX) Unknown Completed [facility] SARS-COV-2 COVID-19 PFIZER VACCINE Unknown Completed [facility] SARS-COV-2 COVID-19 PFIZER VACCINE Unknown Completed [facility] Influenza Virus Vaccine Quad IM, Preserv and ABX Free 6 MO-64 YRS (FLUCELVAX) Unknown Completed [facility] Influenza Virus Vaccine Quad IM, Preserv and ABX Free 6 MO-64 YRS (FLUCELVAX) Unknown Completed [facility] SARS-COV-2 COVID-19 PFIZER VACCINE Unknown Completed [facility] SARS-COV-2 COVID-19 PFIZER VACCINE Unknown Completed [facility] Influenza Virus Vaccine Quad IM, Preserv and ABX Free 6 MO-64 YRS (FLUCELVAX) Unknown Completed [facility] Influenza Virus Vaccine Quad IM, Preserv and ABX Free 6 MO-64 YRS (FLUCELVAX) Unknown Completed [facility] SARS-COV-2 COVID-19 PFIZER VACCINE Unknown Completed [facility] SARS-COV-2 COVID-19 PFIZER VACCINE Unknown Completed [facility] Influenza Virus Vaccine Quad IM, Preserv and ABX Free 6 MO-64 YRS (FLUCELVAX) Unknown Completed [facility] Influenza Virus Vaccine Quad IM, Preserv and ABX Free 6 MO-64 YRS (FLUCELVAX) Unknown Completed [facility] SARS-COV-2 COVID-19 PFIZER VACCINE Unknown Completed [facility] SARS-COV-2 COVID-19 PFIZER VACCINE Unknown Completed [facility] Influenza Virus Vaccine Quad IM, Preserv and ABX Free 6 MO-64 YRS (FLUCELVAX) Unknown Completed [facility] Influenza Virus Vaccine Quad IM, Preserv and ABX Free 6 MO-64 YRS (FLUCELVAX) Unknown Completed [facility] SARS-COV-2 COVID-19 PFIZER VACCINE Unknown Completed [facility] SARS-COV-2 COVID-19 PFIZER VACCINE Unknown Completed [facility] Influenza Virus Vaccine Quad IM, Preserv and ABX Free 6 MO-64 YRS (FLUCELVAX) Unknown Completed [facility] Influenza Virus Vaccine Quad IM, Preserv and ABX Free 6 MO-64 YRS (FLUCELVAX) Unknown Completed [facility] SARS-COV-2 COVID-19 PFIZER VACCINE Unknown Completed [facility] SARS-COV-2 COVID-19 PFIZER VACCINE Unknown Completed [facility] Influenza Virus Vaccine Quad IM, Preserv and ABX Free 6 MO-64 YRS (FLUCELVAX) Unknown Completed [facility] Influenza Virus Vaccine Quad IM, Preserv and ABX Free 6 MO-64 YRS (FLUCELVAX) Unknown Completed [facility] SARS-COV-2 COVID-19 PFIZER VACCINE Unknown Completed [facility] SARS-COV-2 COVID-19 PFIZER VACCINE Unknown Completed [facility] Influenza Virus Vaccine Quad IM, Preserv and ABX Free 6 MO-64 YRS (FLUCELVAX) Unknown Completed [facility] Influenza Virus Vaccine Quad IM, Preserv and ABX Free 6 MO-64 YRS (FLUCELVAX) Unknown Completed [facility] SARS-COV-2 COVID-19 PFIZER VACCINE Unknown Completed [facility] SARS-COV-2 COVID-19 PFIZER VACCINE Unknown Completed [facility] Influenza Virus Vaccine Quad IM, Preserv and ABX Free 6 MO-64 YRS (FLUCELVAX) Unknown Completed [facility] Influenza Virus Vaccine Quad IM, Preserv and ABX Free 6 MO-64 YRS (FLUCELVAX) Unknown Completed [facility] SARS-COV-2 COVID-19 PFIZER VACCINE Unknown Completed [facility] SARS-COV-2 COVID-19 PFIZER VACCINE Unknown Completed [facility] Influenza Virus Vaccine Quad IM, Preserv and ABX Free 6 MO-64 YRS (FLUCELVAX) Unknown Completed [facility] Influenza Virus Vaccine Quad IM, Preserv and ABX Free 6 MO-64 YRS (FLUCELVAX) Unknown Completed [facility] SARS-COV-2 COVID-19 PFIZER VACCINE Unknown Completed [facility] SARS-COV-2 COVID-19 PFIZER VACCINE Unknown Completed [facility] Influenza Virus Vaccine Quad IM, Preserv and ABX Free 6 MO-64 YRS (FLUCELVAX) Unknown Completed [facility] Influenza Virus Vaccine Quad IM, Preserv and ABX Free 6 MO-64 YRS (FLUCELVAX) Unknown Completed [facility] SARS-COV-2 COVID-19 PFIZER VACCINE Unknown Completed [facility] SARS-COV-2 COVID-19 PFIZER VACCINE Unknown Completed [facility] Influenza Virus Vaccine Quad IM, Preserv and ABX Free 6 MO-64 YRS (FLUCELVAX) Unknown Completed [facility] Influenza Virus Vaccine Quad IM, Preserv and ABX Free 6 MO-64 YRS (FLUCELVAX) Unknown Completed [facility] SARS-COV-2 COVID-19 PFIZER VACCINE Unknown Completed [facility] SARS-COV-2 COVID-19 PFIZER VACCINE Unknown Completed [facility] Influenza Virus Vaccine Quad IM, Preserv and ABX Free 6 MO-64 YRS (FLUCELVAX) Unknown Completed [facility] Influenza Virus Vaccine Quad IM, Preserv and ABX Free 6 MO-64 YRS (FLUCELVAX) Unknown Completed [facility] SARS-COV-2 COVID-19 PFIZER VACCINE Unknown Completed [facility] SARS-COV-2 COVID-19 PFIZER VACCINE Unknown Completed [facility] Influenza Virus Vaccine Quad IM, Preserv and ABX Free 6 MO-64 YRS (FLUCELVAX) Unknown Completed [facility] Influenza Virus Vaccine Quad IM, Preserv and ABX Free 6 MO-64 YRS (FLUCELVAX) Unknown Completed [facility] SARS-COV-2 COVID-19 PFIZER VACCINE Unknown Completed [facility] SARS-COV-2 COVID-19 PFIZER VACCINE Unknown Completed [facility] Influenza Virus Vaccine Quad IM, Preserv and ABX Free 6 MO-64 YRS (FLUCELVAX) Unknown Completed [facility] Influenza Virus Vaccine Quad IM, Preserv and ABX Free 6 MO-64 YRS (FLUCELVAX) Unknown Completed [facility] SARS-COV-2 COVID-19 PFIZER VACCINE Unknown Completed [facility] SARS-COV-2 COVID-19 PFIZER VACCINE Unknown Completed [facility] Influenza Virus Vaccine Quad IM, Preserv and ABX Free 6 MO-64 YRS (FLUCELVAX) Unknown Completed [facility] Influenza Virus Vaccine Quad IM, Preserv and ABX Free 6 MO-64 YRS (FLUCELVAX) Unknown Completed [facility] SARS-COV-2 COVID-19 PFIZER VACCINE Unknown Completed [facility] SARS-COV-2 COVID-19 PFIZER VACCINE Unknown Completed [facility] Influenza Virus Vaccine Quad IM, Preserv and ABX Free 6 MO-64 YRS (FLUCELVAX) Unknown Completed [facility] Influenza Virus Vaccine Quad IM, Preserv and ABX Free 6 MO-64 YRS (FLUCELVAX) Unknown Completed [facility] SARS-COV-2 COVID-19 PFIZER VACCINE Unknown Completed [facility] SARS-COV-2 COVID-19 PFIZER VACCINE Unknown Completed [facility] Influenza Virus Vaccine Quad IM, Preserv and ABX Free 6 MO-64 YRS (FLUCELVAX) Unknown Completed [facility] Influenza Virus Vaccine Quad IM, Preserv and ABX Free 6 MO-64 YRS (FLUCELVAX) Unknown Completed [facility] SARS-COV-2 COVID-19 PFIZER VACCINE Unknown Completed [facility] SARS-COV-2 COVID-19 PFIZER VACCINE Unknown Completed [facility] Influenza Virus Vaccine Quad IM, Preserv and ABX Free 6 MO-64 YRS (FLUCELVAX) Unknown Completed [facility] Influenza Virus Vaccine Quad IM, Preserv and ABX Free 6 MO-64 YRS (FLUCELVAX) Unknown Completed [facility] SARS-COV-2 COVID-19 PFIZER VACCINE Unknown Completed [facility] SARS-COV-2 COVID-19 PFIZER VACCINE Unknown Completed [facility] Influenza Virus Vaccine Quad IM, Preserv and ABX Free 6 MO-64 YRS (FLUCELVAX) Unknown Completed [facility] Influenza Virus Vaccine Quad IM, Preserv and ABX Free 6 MO-64 YRS (FLUCELVAX) Unknown Completed [facility] SARS-COV-2 COVID-19 PFIZER VACCINE Unknown Completed [facility] SARS-COV-2 COVID-19 PFIZER VACCINE Unknown Completed [facility] Influenza Virus Vaccine Quad IM, Preserv and ABX Free 6 MO-64 YRS (FLUCELVAX) Unknown Completed [facility] Influenza Virus Vaccine Quad IM, Preserv and ABX Free 6 MO-64 YRS (FLUCELVAX) Unknown Completed [facility] SARS-COV-2 COVID-19 PFIZER VACCINE Unknown Completed [facility] SARS-COV-2 COVID-19 PFIZER VACCINE Unknown Completed [facility] Influenza Virus Vaccine Quad IM, Preserv and ABX Free 6 MO-64 YRS (FLUCELVAX) Unknown Completed [facility] Influenza Virus Vaccine Quad IM, Preserv and ABX Free 6 MO-64 YRS (FLUCELVAX) Unknown Completed [facility] Vital Signs Vital Name Observation Time Observation Value Comments S ource Systolic blood pressure 2023-04-01 16:23:00 165 mm[Hg] [facility] Diastolic blood pressure 2023-04-01 16:23:00 93 mm[Hg] [facility] Heart rate 2023-04-01 16:12:00 69 /min [facility] Body height 2023-04-01 16:12:00 160 cm [facility] Body weight 2023-04-01 16:12:00 67.45 kg [facility] BMI 2023-04-01 16:12:00 26.34 kg/m2 [facility] Oxygen saturation in Arterial blood by Pulse oximetry 2023-04-01 16:12:00 97 /min [facility] Systolic blood pressure 2022-09-24 17:52:00 161 mm[Hg] [facility] Diastolic blood pressure 2022-09-24 17:52:00 79 mm[Hg] [facility] Heart rate 2022-09-24 17:52:00 59 /min [facility] Body temperature 2022-09-24 17:52:00 36.11 [facility] Respiratory rate 2022-09-24 17:52:00 20 /min [facility] Body height 2022-09-24 17:52:00 160 cm [facility] Body weight 2022-09-24 17:52:00 67.903 kg [facility] BMI 2022-09-24 17:52:00 26.52 kg/m2 [facility] Systolic blood pressure 2022-07-01 16:07:00 194 mm[Hg] [facility] Diastolic blood pressure 2022-07-01 16:07:00 87 mm[Hg] [facility] Heart rate 2022-07-01 16:07:00 57 /min [facility] Oxygen saturation in Arterial blood by Pulse oximetry 2022-07-01 16:07:00 97 /min [facility] Body temperature 2022-07-01 15:58:00 37.06 [facility] Body height 2022-07-01 15:58:00 160 cm [facility] Body weight 2022-07-01 15:58:00 68.539 kg [facility] BMI 2022-07-01 15:58:00 26.77 kg/m2 [facility] Systolic blood pressure 2022-03-27 19:34:00 143 mm[Hg] [facility] Diastolic blood pressure 2022-03-27 19:34:00 69 mm[Hg] [facility] Heart rate 2022-03-27 19:34:00 52 /min [facility] Oxygen saturation in Arterial blood by Pulse oximetry 2022-03-27 19:34:00 94 /min [facility] Body temperature 2022-03-27 19:32:00 36.11 [facility] Respiratory rate 2022-03-27 19:32:00 17 /min [facility] Body weight 2022-03-27 19:32:00 73.392 kg [facility] BMI 2022-03-27 19:32:00 28.66 kg/m2 [facility] height 2022-01-10 09:15:00 64 [in_i] Commo n [facility] weight 2022-01-10 09:15:00 170 [lb_av] Comm on [facility] temperature 2022-01-10 09:15:00 97.3 [degF] Com mon [facility] bmi 2022-01-10 09:15:00 29.18 kg/m2 Comm on [facility] oximetry 2022-01-10 09:15:00 96 % Commo n [facility] respiratory rate 2022-01-10 09:15:00 18 /min [facility] blood pressure systolic 2022-01-10 09:15:00 180 mm[Hg] [facility] blood pressure diastolic 2022-01-10 09:15:00 78 mm[Hg] [facility] Systolic blood pressure 2021-09-24 16:50:00 178 mm[Hg] [facility] Diastolic blood pressure 2021-09-24 16:50:00 81 mm[Hg] [facility] Heart rate 2021-09-24 16:49:00 68 /min [facility] 2021-09-24 16:49:00 37.5 Radha [facility] Body height 2021-09-24 16:49:00 160 cm [facility] 2021-09-24 16:49:00 73.936 kg [facility] BMI 2021-09-24 16:49:00 28.87 kg/m2 [facility] height 2020-11-15 15:00:00 64 [in_i] Commo n [facility] weight 2020-11-15 15:00:00 159 [lb_av] Comm on [facility] temperature 2020-11-15 15:00:00 97.6 [degF] Com [facility] bmi 2020-11-15 15:00:00 27.29 kg/m2 Comm on [facility] oximetry 2020-11-15 15:00:00 97 % Commo n [facility] blood pressure systolic 2020-11-15 15:00:00 116 mm[Hg] [facility] blood pressure diastolic 2020-11-15 15:00:00 60 mm[Hg] Common [facility] height 2020-05-17 08:00:00 64 [in_i] Commo n [facility] weight 2020-05-17 08:00:00 171.4 [lb_av] Co mmon [facility] temperature 2020-05-17 08:00:00 97.9 [degF] Com [facility] bmi 2020-05-17 08:00:00 29.42 kg/m2 Comm on [facility] oximetry 2020-05-17 08:00:00 97 % Commo n [facility] blood pressure systolic 2020-05-17 08:00:00 150 mm[Hg] [facility] blood pressure diastolic 2020-05-17 08:00:00 68 mm[Hg] Common [facility] height 2020-05-09 11:00:00 64 [in_i] Commo n [facility] weight 2020-05-09 11:00:00 172.4 [lb_av] Co [facility] temperature 2020-05-09 11:00:00 97.7 [degF] Com [facility] bmi 2020-05-09 11:00:00 29.59 kg/m2 Comm on [facility] oximetry 2020-05-09 11:00:00 68 % Commo n [facility] respiratory rate 2020-05-09 11:00:00 18 /min [facility] blood pressure systolic 2020-05-09 11:00:00 120 mm[Hg] [facility] blood pressure diastolic 2020-05-09 11:00:00 67 mm[Hg] [facility] height 2020-04-25 13:20:00 64 [in_i] Commo n [facility] weight 2020-04-25 13:20:00 176.0 [lb_av] Co mmon [facility] temperature 2020-04-25 13:20:00 97.9 [degF] Com mon [facility] bmi 2020-04-25 13:20:00 30.21 kg/m2 Comm on [facility] oximetry 2020-04-25 13:20:00 98 % Commo n [facility] respiratory rate 2020-04-25 13:20:00 18 /min Common [facility] blood pressure systolic 2020-04-25 13:20:00 139 mm[Hg] [facility] blood pressure diastolic 2020-04-25 13:20:00 67 mm[Hg] [facility] height 2020-01-17 16:00:00 64 [in_i] Commo n [facility] weight 2020-01-17 16:00:00 174.4 [lb_av] Co mmon [facility] temperature 2020-01-17 16:00:00 97.5 [degF] Com mon [facility] bmi 2020-01-17 16:00:00 29.93 kg/m2 Comm on [facility] oximetry 2020-01-17 16:00:00 97 % Commo n [facility] respiratory rate 2020-01-17 16:00:00 18 /min Common [facility] blood pressure systolic 2020-01-17 16:00:00 132 mm[Hg] [facility] blood pressure diastolic 2020-01-17 16:00:00 84 mm[Hg] [facility] blood pressure diastolic 2020-01-09 13:20:00 79 mm[Hg] [facility] height 2020-01-09 13:20:00 64 [in_i] Commo n [facility] weight 2020-01-09 13:20:00 174.0 [lb_av] Co mmon [facility] temperature 2020-01-09 13:20:00 98.3 [degF] Com mon [facility] bmi 2020-01-09 13:20:00 29.86 kg/m2 Comm on [facility] oximetry 2020-01-09 13:20:00 97 % Commo n [facility] respiratory rate 2020-01-09 13:20:00 18 /min [facility] blood pressure systolic 2020-01-09 13:20:00 182 mm[Hg] [facility] Procedures Procedure Date / Time Performed Performing Clinicia n Source PHYSICIAN ORDERS 2023-05-07 06:01:00 Doctor Ruby signed, Kaleva [facility] FLU VACC ([id number]), 6 MO-64 YRS, .5ML, IM, QUAD (FLUCELVAX) 2023-04-01 16:48:03 Rupert Villagomez [facility] CAROTID DUPLEX BILATERAL - BY VASCULAR LAB 2023-04-01 15:40:07 Rupert Villagomez [facility] PHYSICIAN ORDERS 2022-12-12 05:01:00 Doctor Ruby signed, Kaleva [facility] ASSIGNMENT OF BENEFITS 2022-07-01 15:55:12 Docto r Unassigned, Kaleva [facility] PHYSICIAN ORDERS 2022-03-25 06:01:00 Doctor Ruby signed, Kaleva [facility] BI ULTRASOUND BREAST COMPLETE LEFT 2021-11-29 17:22:59 Myrtle Mckenna [facility] BI DIAGNOSTIC MAMMOGRAM BILATERAL 2021-11-29 16:46:00 Myrtle Mckenna [facility] Encounters Start Date/Time End Date/Time Encounter Type Admission Type Attending [facility] Care Facility Care Department Encounter ID Source 2021-04-10 13:22:03 Outpatient Alexandra Marcelo [facility] [id number] [facility] 2021-04-10 13:20:20 Outpatient Alexandra Marcelo [facility] [id number] [facility] 2021-04-10 12:56:33 Outpatient Alexandra Marcelo [facility] [id number] [facility] 2021-04-10 12:45:57 Outpatient Alexandra Marcelo [facility] ST[facility] [id number] [facility] 2021-04-10 12:40:17 Outpatient Fozia Na [facility] ST[facility] [id number] [facility] 2021-04-10 12:32:56 Outpatient Ethan, Madina [facility] ST[facility] [id number] [facility] 2021-04-10 12:32:35 Outpatient Ethan, Madina [facility] ST[facility] [id number] [facility] 2021-04-10 12:31:41 Outpatient Ethan, Madina [facility] ST[facility] [id number] [facility] 2021-04-10 12:04:55 Outpatient Ethan, Madina [facility] ST[facility] [id number] [facility] 2021-04-10 12:04:47 Outpatient Ethan, Madina [facility] ST[facility] [id number] [facility] 2021-04-10 12:01:28 Outpatient Ethan, Madina [facility] ST[facility] [id number] [facility] 2021-04-10 11:58:57 Outpatient Ethan, Madina [facility] [id number] [facility] 2019-11-01 17:42:33 Outpatient SYSTEM, PROVIDER SAMUEL BAKER [id number] MD Ellis padilla 2023-11-13 13:00:00 2023-11-13 13:00:00 Outpatient R RUPERT VILLAGOMEZ [facility] [id number] [facility] 2023-10-16 00:00:00 2023-10-16 08:44:23 RefIsmael Young [facility] 1..840.114 350.1.13.10 4.2.7.2.686 [id number] [facility] 2023-09-30 15:30:00 2023-09-30 15:30:00 Outpatient R RUPERT VILLAGOMEZ [facility] [id number] [facility] 2023-09-24 00:00:00 2023-09-24 08:43:57 [facility] 1..840.114 350.1.13.10 4.2.7.2.686 [id number] [facility] 2023-09-09 00:00:00 2023-09-09 07:46:32 Ismael Mendoza [facility] 1..840.114 350.1.13.10 4.2.7.2.686 [id number] [facility] 2023-08-17 00:00:00 2023-08-17 00:00:00 Outpatient R RADIOLOGY [facility] [id number] [facility] 2023-08-04 00:00:00 2023-08-04 08:36:11 Ismael Mendoza [facility] 1..840.114 350.1.13.10 4.2.7.2.686 [id number] [facility] 2023-07-30 00:00:00 2023-07-30 00:00:00 Outpatient R RADIOLOGY [facility] [id number] [facility] 2023-07-27 00:00:00 2023-07-28 06:53:41 [facility] 1.2840.114 350.1.13.10 4.2.7.2.686 [id number] [facility] 2023-07-16 00:00:00 2023-07-16 00:00:00 Outpatient R RADIOLOGY [facility] [id number] [facility] 2023-07-15 00:00:00 2023-07-15 00:00:00 Refgiovani Fitzpatrick [facility] 1.20.114 350.1.13.10 4.2.7.2.686 [id number] [facility] 2023-07-06 00:00:00 2023-07-06 16:16:08 Telephone Suarez, [facility] 1.2840.114 350.1.13.10 4.2.7.2.686 [id number] [facility] 2023-07-06 00:00:00 2023-07-06 00:00:00 [facility] 1.2.114 350.1.13.10 4.2.7.2.686 [id number] [facility] 2023-07-04 00:00:00 2023-07-04 00:00:00 Refgiovani Claremadelyn Ismael [facility] EMILIA?[facility] 1.2840.114 350.1.13.10 4.2.7.2.686 [id number] [facility] 2023-06-25 00:00:00 2023-06-25 00:00:00 [facility]ill [facility] 1.2.840.114 350.1.13.10 4.2.7.2.686 [id number] [facility] 2023-06-19 00:00:00 2023-06-19 00:00:00 Refill Rupert Villagomez [facility] 1.2.840.114 350.1.13.10 4.2.7.2.686 [id number] [facility] 2023-06-19 00:00:00 2023-06-19 00:00:00 Refill Hernando Sendniall [facility] NAL BU[facility] 1.2.840.114 350.1.13.10 4.2.7.2.686 [id number] [facility] 2023-06-17 00:00:00 2023-06-17 00:00:00 Telephone Rupert Villagomez [facility] NAL BUILD[facility] 1.2.840.114 350.1.13.10 4.2.7.2.686 [id number] [facility] 2023-06-08 16:30:00 2023-06-08 17:02:41 Outpatient ISMAEL CABAN [facility] [id number] [facility] 2023-06-04 16:00:00 2023-06-04 16:00:00 Outpatient ISMAEL CABAN [facility] [id number] [facility] 2023-06-03 00:00:00 2023-06-03 00:00:00 Telephone [facility] 1..840.114 350.1.13.10 4.2.7.2.686 [id number] [facility] 2023-06-02 00:00:00 2023-06-02 00:00:00 Telephone Meenalucas Ismael [facility] 1.840.114 350.1.13.10 4.2.7.2.686 [id number] [facility] 2023-06-01 11:30:00 2023-06-01 11:30:00 Outpatient ISMAEL CABAN [facility] [id number] [facility] 2023-05-27 08:00:00 2023-05-27 08:00:00 Outpatient ISMAEL CABAN [facility] [id number] [facility] 2023-05-24 00:00:00 2023-05-24 00:00:00 Refill Claremadelyn [facility]IA?[facility] 1.840.114 350.1.13.10 4.2.7.2.686 [id number] [facility] 2023-05-12 00:00:00 2023-05-12 00:00:00 Telephone Rupert Villagomez [facility] 1.840.114 350.1.13.10 4.2.7.2.686 [id number] [facility] 2023-05-07 00:00:00 2023-05-07 00:00:00 Refgiovani Fitzpatrick [facility]IA?[facility] 1.840.114 350.1.13.10 4.2.7.2.686 [id number] [facility] 2023-05-07 00:00:00 2023-05-07 00:00:00 Orders Only Doctor Unassigned, Kaleva [facility] 1.2840.114 350.1.13.10 4.2.7.2.686 [id number] [facility] 2023-04-09 00:00:00 2023-04-09 00:00:00 Refill Nanette [facility] 1.2840.114 350.1.13.10 4.2.7.2.686 [id number] [facility] 2023-04-04 00:00:00 2023-04-04 00:00:00 Refill Nanette [facility] 1.2.114 350.1.13.10 4.2.7.2.686 [id number] [facility] 2023-04-03 00:00:00 2023-04-03 00:00:00 Telephone Morgan Sahu [facility] 1..114 350.1.13.10 4.2.7.2.686 [id number] [facility] 2023-04-01 08:49:25 2023-04-01 23:59:00 Outpatient R RUPERT VILLAGOMEZ [facility] [id number] [facility] 2023-04-01 08:49:25 2023-04-01 23:59:00 Hospital Encounter Rupert Villagomez [facility] 1.84.114 350.1.13.10 4.2.7.2.686 [id number] [facility] 2023-04-01 10:00:00 2023-04-01 10:44:39 Office Visit Rupert Villagomez [facility] 1.284.114 350.1.13.10 4.2.7.2.686 [id number] [facility] 2023-02-04 00:00:00 2023-02-04 00:00:00 Ismael Mendoza [facility] MEDICAL OFFICE BUILDING 1.2.840.114 350.1.13.10 4.2.7.2.686 [id number] [id number] [facility] 2023-01-01 13:23:01 2023-01-01 23:59:00 [facility] [id number] [facility] 2023-01-01 13:23:01 2023-01-01 23:59:00 Hospital Encounter Padmini Baird [facility] 1..840.114 350.1.13.10 4.2.7.2.686 [id number] [facility] 2022-12-25 08:50:33 2022-12-25 23:59:00 Hospital Encounter Padmini Baird [facility] 1.2.840.114 350.1.13.10 4.2.7.2.686 [id number] [facility] 2022-12-25 00:00:00 2022-12-25 23:59:00 Outpatient R PADMINI BAIRD [facility] [id number] [facility] 2022-12-19 00:00:00 2022-12-19 00:00:00 Corazon Fitzpatrick [facility] MEDICAL OFFICE BUILDING 1..840.114 350.1.13.10 4.2.7.2.686 [id number] [id number] [facility] 2022-12-12 09:45:00 2022-12-12 10:00:00 Checker Cashier Visit Pob, Adc Lab Main Padmini Baird [facility] PROFESSIO NAL BUILDING 1.840.114 350.1.13.10 4.2.7.2.686 [id number] [facility] 2022-12-12 09:45:00 2022-12-12 09:45:00 Outpatient R PADMINI BAIRD [facility] [id number] [facility] 2022-12-12 00:00:00 2022-12-12 00:00:00 Orders Only Doctor Unassigned, Kaleva [facility] 1.0.114 350.1.13.10 4.2.7.2.686 [id number] [facility] 2022-12-07 00:00:00 2022-12-07 00:00:00 RefIsmael Young [facility] EMILIA[facility] 1.840.114 350.1.13.10 4.2.7.2.686 [id number] 044 [id number] [facility] 2022-11-25 00:00:00 2022-11-25 00:00:00 Telephone Ismael Fitzpatrick [facility] EMILIA?[facility] MEDICAL OFFICE BUILDING 1..114 350.1.13.10 4.2.7.2.686 [id number] [id number] [facility] 2022-11-23 00:00:00 2022-11-23 00:00:00 Patient Secure Msg Claremadelyn [facility] EMILIA?[facility] MEDICAL OFFICE BUILDING 1.840.114 350.1.13.10 4.2.7.2.686 [id number] [id number] [facility] 2022-10-08 00:00:00 2022-10-08 00:00:00 Refill Claremadelyn [facility] EMILIA?[facility] MEDICAL OFFICE BUILDING 1.84.114 350.1.13.10 4.2.7.2.686 [id number] [id number] [facility] 2022-09-24 13:00:00 2022-09-24 13:25:11 Outpatient R RUPERT VILLAGOMEZ [facility] [id number] [facility] 2022-09-24 13:00:00 2022-09-24 13:25:11 Office Visit Rupert Villagomez [facility] 1.2.840.114 350.1.13.10 4.2.7.2.686 [id number] [facility] 2022-09-23 00:00:00 2022-09-23 00:00:00 Telephone Rupert Villagomez [facility] BU[facility] 1.2.840.114 350.1.13.10 4.2.7.2.686 [id number] [facility] 2022-09-22 11:00:00 2022-09-22 11:15:00 Checker Cashier Visit Pob, Adc Lab Main Rupert Villagomez [facility] BUILD[facility] 1.2.840.114 350.1.13.10 4.2.7.2.686 [id number] [facility] 2022-09-22 11:00:00 2022-09-22 11:00:00 Outpatient R RUPERT VILLAGOMEZ [facility] [id number] [facility] 2022-09-22 00:00:00 2022-09-22 00:00:00 Telephone Rupert Villagomez [facility] 1.2.840.114 350.1.13.10 4.2.7.2.686 [id number] 059 [id number] [facility] 2022-08-18 00:00:00 2022-08-18 00:00:00 Refill Villagomez, Sendil [facility] NAL BUILDING 1.84114 350.1.13.10 4.2.7.2.686 [id number] [id number] [facility] 2022-07-25 00:00:00 2022-07-25 00:00:00 Patient Secure Ismael Downs [facility] EMILIA?[facility] 1..114 350.1.13.10 4.2.7.2.686 [id number] 044 [id number] [facility] 2022-07-01 11:00:00 2022-07-01 11:15:00 Office Visit Ismael Fitzpatrick [facility] EMILIA?[facility] BU[facility] 1.114 350.1.13.10 4.2.7.2.686 [id number] 044 [id number] [facility] 2022-07-01 11:00:00 2022-07-01 11:00:00 Outpatient R ISMAEL FITZPATRICK [facility] [id number] [facility] 2022-07-01 00:00:00 2022-07-01 00:00:00 Patient Secure Ismael Downs [facility] EMILIA?[facility] 1.114 350.1.13.10 4.2.7.2.686 [id number] 044 [id number] [facility] 2022-07-01 00:00:00 2022-07-01 00:00:00 Patient Secure g Ismael Fitzpatrick [facility] EMILIA?[facility] MEDICAL OFFICE BUILDING 1.114 350.1.13.10 4.2.7.2.686 [id number] [facility] 2022-07-01 00:00:00 2022-07-01 00:00:00 Orders Only Doctor Unassigned, Kaleva [facility] 1.114 350.1.13.10 4.2.7.2.686 [id number] [facility] 2022 00:00:00 2022 00:00:00 Patient Secure Msg Doctor Unassigned, Kaleva [facility] 1.2840.114 350.1.13.10 4.2.7.2.686 [id number] [facility] 2022-06-26 00:00:00 2022-06-26 00:00:00 Telephone Rupert Villagomez [facility] BU[facility] 1.2840.114 350.1.13.10 4.2.7.2.686 [id number] 059 [id number] [facility] 2022-06-23 00:00:00 2022-06-23 00:00:00 Refill Nanette [facility] MEDICAL OFFICE BUILDING 1.2840.114 350.1.13.10 4.2.7.2.686 [id number] 044 [id number] [facility] 2022-06-23 00:00:00 2022-06-23 00:00:00 Refill Nanette [facility] MEDICAL OFFICE BUILDING 1.2840.114 350.1.13.10 4.2.7.2.686 [id number] 044 [id number] [facility] 2022-06-23 00:00:00 2022-06-23 00:00:00 Refill Rupert VillagomezHMario [facility] BU[facility] 1.2840.114 350.1.13.10 4.2.7.2.686 [id number] 059 [id number] [facility] 2022-05-27 15:00:00 2022-05-27 15:00:00 Outpatient MYRTLE CHANG [facility] [id number] [facility] 2022-05-15 00:00:00 2022-05-15 00:00:00 Refill Rupert Villagomez [facility] BU[facility] 1.2840.114 350.1.13.10 4.2.7.2.686 [id number] [facility] 2022-05-09 00:00:00 2022-05-09 00:00:00 Telephone Rupert Villagomez [facility] BU[facility] 1.2840.114 350.1.13.10 4.2.7.2.686 [id number] [facility] 2022-05-02 07:48:39 2022-05-02 07:48:39 Outpatient R RUPERT VILLAGOMEZ [facility] [id number] [facility] 2022-04-02 00:00:00 2022-04-02 00:00:00 Refill Rupert Villagomez [facility] 1.2840.114 350.1.13.10 4.2.7.2.686 [id number] [id number] [facility] 2022-03-27 13:30:00 2022-03-27 14:14:07 Outpatient R RUPERT VILLAGOMEZ [facility] [id number] [facility] 2022-03-27 13:30:00 2022-03-27 14:14:07 Office Visit Rupert Villagomez [facility] 1.2840.114 350.1.13.10 4.2.7.2.686 [id number] [id number] [facility] 2022-03-25 00:00:00 2022-03-25 00:00:00 Orders Only Doctor Unassigned, Kaleva [facility] 1.2840.114 350.1.13.10 4.2.7.2.686 [id number] [facility] 2022-02-25 13:30:00 2022-02-25 13:30:00 Outpatient DOC CARVAJAL [facility] [id number] [facility] 2022-02-19 00:00:00 2022-02-19 00:00:00 [facility] 1.2.840.114 350.1.13.10 4.2.7.2.686 [id number] [facility] 2022-02-09 00:00:00 2022-02-09 00:00:00 Ismael Mendoza [facility] BUILDING 1.2.840.114 350.1.13.10 4.2.7.2.686 [id number] [facility] 2022-01-29 09:30:00 2022-01-29 09:30:00 Outpatient RUPERT OLIVER [facility] [id number] [facility] 2022-01-10 00:00:00 2022-01-10 00:00:00 OFFICE VISIT EST PT LEVEL 3 STLMLC STLMLC [id number] [facility] 2021-12-26 00:00:00 2021-12-26 00:00:00 Rupert Hutson [facility] BU[facility] 1.2.840.114 350.1.13.10 4.2.7.2.686 [id number] [facility] 2021-12-26 00:00:00 2021-12-26 00:00:00 Rupert Hutson [facility] BU[facility] 1.2.840.114 350.1.13.10 4.2.7.2.686 [id number] [id number] [facility] 2021-12-23 00:00:00 2021-12-23 00:00:00 Refill Hernando Rupert VladMariooDnnieMario [facility] BUILD[facility] 1.2.840.114 350.1.13.10 4.2.7.2.686 [id number] 059 [id number] [facility] 2021-12-23 00:00:00 2021-12-23 00:00:00 Refill Rupert Villagomez VladMarioDonnieMario [facility] BU[facility] 1.2.840.114 350.1.13.10 4.2.7.2.686 [id number] [id number] [facility] 2021-12-19 00:00:00 2021-12-19 00:00:00 Refill Rupert Villagomez VladMarioDonnieMario [facility] 1.2.840.114 350.1.13.10 4.2.7.2.686 [id number] [facility] 2021-11-29 11:11:27 2021-11-29 23:59:00 Hospital Encounter AdMyrtle martin [facility] 1.2.840.114 350.1.13.10 4.2.7.2.686 [id number] [facility] 2021-11-29 11:10:20 2021-11-29 11:10:20 Outpatient R MYRTLE MCKENNA [facility] [id number] [facility] 2021-11-29 11:10:20 2021-11-29 11:10:20 Hospital Encounter [facility] 1.2.840.114 350.1.13.10 4.2.7.2.686 [id number] [facility] 2021-10-16 00:00:00 2021-10-16 00:00:00 Patient Secure Ismael Downs [facility] BU[facility] 1.2.840.114 350.1.13.10 4.2.7.2.686 [id number] [facility] 2021-10-16 00:00:00 2021-10-16 00:00:00 Patient [facility] 1.2.840.114 350.1.13.10 4.2.7.2.686 [id number] 044 [id number] [facility] 2021-10-15 00:00:00 2021-10-15 00:00:00 Outpatient MYRTLE CHANG [facility] [id number] [facility] 2021-10-15 00:00:00 2021-10-15 00:00:00 Patient Secure Ismael Downs [facility] 1.2.840.114 350.1.13.10 4.2.7.2.686 [id number] [facility] 2021-09-24 11:30:00 2021-09-24 11:45:00 Office Visit Ismael Fitzpatrick [facility] 1.2.840.114 350.1.13.10 4.2.7.2.686 [id number] [facility] 2021-09-24 11:30:00 2021-09-24 11:30:00 Outpatient ISMAEL CABAN [facility] [id number] [facility] 2021-09-18 14:15:00 2021-09-18 14:15:00 Outpatient ISMAEL CABAN [facility] [id number] [facility] 2021-09-10 15:15:00 2021-09-10 15:15:00 Outpatient ISMAEL CABAN [facility] [id number] [facility] 2021-08-26 14:00:00 2021-08-26 14:00:00 Outpatient R ISMAEL FITZPATRICK [facility] [id number] [facility] 2021-08-06 00:00:00 2021-08-06 00:00:00 Telephone [facility] 1.2.840.114 350.1.13.10 4.2.7.2.686 [id number] [facility] 2021-07-31 00:00:00 2021-07-31 00:00:00 Refill Rupert VillagomezDonnieMario [facility] 1.2.840.114 350.1.13.10 4.2.7.2.686 [id number] [facility] 2021-07-29 10:00:00 2021-07-29 10:42:43 Outpatient R RUPERT VILLAGOMEZ [facility] [id number] [facility] 2021-07-29 10:00:00 2021-07-29 10:42:43 Office Visit Rupert VillagomezDonnieMario [facility] 1.2.840.114 350.1.13.10 4.2.7.2.686 [id number] [facility] 2021-07-29 10:00:00 2021-07-29 10:42:43 Outpatient R RUPERT VILLAGOMEZ [facility] [id number] [facility] 2021-07-29 00:00:00 2021-07-29 00:00:00 Telephone Rupert VillagomezDonnieMario [facility] 1.2.840.114 350.1.13.10 4.2.7.2.686 [id number] [facility] 2021-07-26 16:15:00 2021-07-26 16:30:00 Checker Cashier Visit Pob, Adc Lab Main Rupert VillagomezDonnieMario [facility] BUILD[facility] 1.2840.114 350.1.13.10 4.2.7.2.686 [id number] [facility] 2021-07-26 16:15:00 2021-07-26 16:30:00 Checker Cashier Visit Pob, Adc Lab Main Rupert Villagomez [facility] BUILDING 1.2840.114 350.1.13.10 4.2.7.2.686 [id number] [facility] 2021-07-26 16:15:00 2021-07-26 16:15:00 Outpatient R RUPERT VILLAGOMEZ [facility] [id number] [facility] 2021-07-26 00:00:00 2021-07-26 00:00:00 Patient Secure Msg Rupert Villagomez [facility] BUILD[facility] 1.2840.114 350.1.13.10 4.2.7.2.686 [id number] [facility] 2021-07-16 00:00:00 2021-07-16 00:00:00 Patient Secure Msg Myrtle Mckenna [facility] BU[facility] 1.2840.114 350.1.13.10 4.2.7.2.686 [id number] [facility] 2021-07-10 00:00:00 2021-07-10 00:00:00 Ismael Mendoza [facility] EMILIA?[facility] 1.2840.114 350.1.13.10 4.2.7.2.686 [id number] 044 [id number] [facility] 2021-07-02 00:00:00 2021-07-02 00:00:00 Patient Secure Msg Kurt Haile [facility] 1.2840.114 350.1.13.10 4.2.7.2.686 [id number] [facility] 2021-07-01 09:30:00 2021-07-01 09:30:00 Outpatient Zaheer HOFFMANOSWALDO [facility] [id number] [facility] 2021-07-01 00:00:00 2021-07-01 00:00:00 Telephone AdveronicaMyrtle [facility] 1.2.840.114 350.1.13.10 4.2.7.2.686 [id number] [facility] 2021-06-26 00:00:00 2021-06-26 00:00:00 Rupert Hutson [facility] BUILD[facility] 1.2.840.114 350.1.13.10 4.2.7.2.686 [id number] [facility] 2021-06-26 00:00:00 2021-06-26 00:00:00 Patient Secure Msg AdMyrtle martin [facility] BUILD[facility] 1.2.840.114 350.1.13.10 4.2.7.2.686 [id number] [facility] 2021-06-11 00:00:00 2021-06-11 00:00:00 Case Management AdMyrtle martin [facility] BUILD[facility] 1.2.840.114 350.1.13.10 4.2.7.2.686 [id number] [facility] 2021-06-10 00:00:00 2021-06-10 00:00:00 Telephone AdMyrtle martin [facility] 1.2.840.114 350.1.13.10 4.2.7.2.686 [id number] [facility] 2021-06-10 00:00:00 2021-06-10 00:00:00 Telephone Myrtle Mckenna [facility] BUILD[facility] 1.2.840.114 350.1.13.10 4.2.7.2.686 [id number] [facility] 2021-05-27 00:00:00 2021-05-27 00:00:00 Refill Rupert VillagomezHMario [facility] BUILD[facility] 1.2.840.114 350.1.13.10 4.2.7.2.686 [id number] 059 [id number] [facility] 2021-05-27 00:00:00 2021-05-27 00:00:00 RefIsmael Young [facility] OFFICE BUILDING ONE 1.2.840.114 350.1.13.10 4.2.7.2.686 [id number] [id number] [facility] 2021-05-27 00:00:00 2021-05-27 00:00:00 Telephone Cristela Webster [facility] BU[facility] 1.2.840.114 350.1.13.10 4.2.7.2.686 [id number] [facility] 2021-05-26 00:00:00 2021-05-26 00:00:00 Refill Rupert Villagomez K.HMario [facility] BUILD[facility] 1.2.840.114 350.1.13.10 4.2.7.2.686 [id number] [id number] [facility] 2021-05-24 14:30:00 2021-05-24 15:45:18 Office Visit Myrtle Mckenna [facility] BU[facility] 1.2.840.114 350.1.13.10 4.2.7.2.686 [id number] [facility] 2021-05-24 14:30:00 2021-05-24 15:45:18 [id number] 2021-05-24 14:30:00 2021-05-24 14:30:00 Outpatient R [facility]ORI [facility] [id number] [facility] 2021-05-23 14:57:35 2021-05-23 23:59:00 Outpatient R WEBSTER CRISTELA [facility] [id number] [facility] 2021-05-23 14:57:35 2021-05-23 23:59:00 Hospital Encounter Cristela Webster [facility] .2.840.114 350.1.13.10 4.2.7.2.686 [id number] [facility] 2021-05-23 14:57:35 2021-05-23 23:59:00 Outpatient R CRISTELA WEBSTER [facility] [id number] [facility] 2021-05-22 15:00:00 2021-05-22 15:00:00 Outpatient R TORI [facility] [id number] [facility] 2021-05-22 15:00:00 2021-05-22 15:00:00 Outpatient R TORI [facility] [id number] [facility] 2021-05-21 10:30:00 2021-05-21 10:30:00 Outpatient R TORI [facility] [id number] [facility] 2021-05-16 00:00:00 2021-05-16 00:00:00 Telephone Crist[facility] .2.840.114 350.1.13.10 4.2.7.2.686 [id number] [facility] 2021-05-15 00:00:00 2021-05-15 00:00:00 Telephone Cristela Webster [facility] BU[facility] 1..840.114 350.1.13.10 4.2.7.2.686 [id number] [facility] 2021-05-15 00:00:00 2021-05-15 00:00:00 Orders Only Doctor Unassigned, Kaleva [facility] 1.840.114 350.1.13.10 4.2.7.2.686 [id number] [facility] 2021-05-14 13:30:00 2021-05-14 14:43:28 Outpatient R CRISTELA WEBSTER [facility] [id number] [facility] 2021-05-14 13:30:00 2021-05-14 14:43:28 Office Visit Cristela Webster [facility] 1.840.114 350.1.13.10 4.2.7.2.686 [id number] [facility] 2021-05-14 13:30:00 2021-05-14 13:30:00 Outpatient R CRISTELA WEBSTER [facility] [id number] [facility] 2021-05-06 00:00:00 2021-05-06 00:00:00 Patient Secure Msg Doctor Unassigned, Kaleva [facility]?LIZAAreli [facility] BUILDING 1..840.114 350.1.13.10 4.2.7.2.686 [id number] [facility] 2021-05-03 00:00:00 2021-05-03 00:00:00 Telephone Ismael Fitzpatrick [facility] 1..840.114 350.1.13.10 4.2.7.2.686 [id number] [facility] 2021-04-11 08:45:00 2021-04-11 09:00:00 Office Visit Ismael Fitzpatrick [facility] 1.2.840.114 350.1.13.10 4.2.7.2.686 [id number] [facility] 2021-04-11 08:45:00 2021-04-11 08:45:00 Outpatient R ISMAEL FITZPATRICK [facility] [id number] [facility] 2021-04-09 16:00:00 2021-04-09 16:00:00 Outpatient R NANETTE [facility] [id number] [facility] 2021-04-05 14:00:00 2021-04-05 14:00:00 Outpatient R ISMAEL FITZPATRICK [facility] [id number] [facility] 2021-03-29 14:20:00 2021-03-29 14:20:00 Outpatient DOC CARVAJAL [facility] [id number] [facility] 2021-03-27 00:00:00 2021-03-27 00:00:00 Refill Nanette [facility] 1.2.840.114 350.1.13.10 4.2.7.2.686 [id number] [facility] 2021-01-29 14:00:00 2021-01-29 14:43:23 Outpatient R RUPERT VILLAGOMEZ [facility] [id number] [facility] 2021-01-29 13:58:31 2021-01-29 14:43:23 Office Visit Rupert Villagomez [facility] 1.2.840.114 350.1.13.10 4.2.7.2.686 [id number] [facility] 2021-01-29 14:00:00 2021-01-29 14:00:00 Outpatient R RUPERT VILLAGOMEZ [facility] [id number] [facility] 2021-01-28 00:00:00 2021-01-28 00:00:00 Patient Secure Msg Doctor Unassigned, Kaleva [facility] 1.2.840.114 350.1.13.10 4.2.7.2.686 [id number] [facility] 2021-01-15 00:00:00 2021-01-15 00:00:00 Orders Only Doctor Unassigned, Kaleva [facility] 1.840.114 350.1.13.10 4.2.7.2.686 [id number] [facility] 2021-01-15 00:00:00 2021-01-15 00:00:00 Telephone Rupert Villagomez [facility] 1..840.114 350.1.13.10 4.2.7.2.686 [id number] [facility] 2021-01-10 15:30:00 2021-01-10 15:30:00 Outpatient R RUPERT VILLAGOMEZ [facility] [id number] [facility] 2020-12-26 00:00:00 2020-12-26 00:00:00 Telephone Rupert Villagomez [facility] 1..840.114 350.1.13.10 4.2.7.2.686 [id number] [facility] 2020-12-26 00:00:00 2020-12-26 00:00:00 Telephone Rupert Villagomez [facility] 1.2.840.114 350.1.13.10 4.2.7.2.686 [id number] [facility] 2020-12-19 09:15:00 2020-12-19 09:15:00 Outpatient ISMAEL CABAN [facility] [id number] [facility] 2020-12-04 00:00:00 2020-12-04 00:00:00 Patient Secure Msg Doctor Unassigned, Kaleva [facility] 1.2.840.114 350.1.13.10 4.2.7.2.686 [id number] [facility] 2020-11-30 00:00:00 2020-11-30 00:00:00 Telephone Rupert Villagomez [facility] 1.2.840.114 350.1.13.10 4.2.7.2.686 [id number] [facility] 2020-11-30 00:00:00 2020-11-30 00:00:00 Telephone Rupert Villagomez [facility] 1.2.840.114 350.1.13.10 4.2.7.2.686 [id number] [facility] 2020-11-30 00:00:00 2020-11-30 00:00:00 Telephone Rupert Villagomez [facility] 1.2.840.114 350.1.13.10 4.2.7.2.686 [id number] [facility] 2020-11-15 00:00:00 2020-11-15 00:00:00 (PROC) Procedure STLMLC STLMLC [id number] [facility] 2020-10-29 00:00:00 2020-10-29 00:00:00 Refill Rupert Villagomez [facility] 1.2.840.114 350.1.13.10 4.2.7.2.686 [id number] [facility] 2020-10-17 00:00:00 2020-10-17 00:00:00 (TEL) STLMLC STLMLC [id number] [facility] 2020-10-09 14:20:00 2020-10-09 14:20:00 Outpatient DOC CARVAJAL [facility] [id number] [facility] 2020-10-09 00:00:00 2020-10-09 00:00:00 Ref[facility] [facility] Building 1..840.114 350.1.13.10 4.2.7.2.686 [id number] [facility] 2020-10-05 00:00:00 2020-10-05 00:00:00 Refill Ismael Fitzpatrick [facility] Office Building One 1..840.114 350.1.13.10 4.2.7.2.686 [id number] [facility] 2020-10-03 09:52:18 2020-10-03 10:12:18 Checker Cashier Visit Lab, Adc [facility] Pob Francesco Fitzpatrick [facility] Office Building One 1..840.114 350.1.13.10 4.2.7.2.686 [id number] [facility] 2020-10-03 09:17:01 2020-10-03 09:32:01 Office Visit Ismael Fitzpatrick [facility] Office Building One 1.840.114 350.1.13.10 4.2.7.2.686 [id number] [facility] 2020-10-03 09:15:00 2020-10-03 09:15:00 Outpatient ISMAEL CABAN [facility] [id number] [facility] 2020-10-03 00:00:00 2020-10-03 00:00:00 Telephone [facility] One 1.2.840.114 350.1.13.10 4.2.7.2.686 [id number] [facility] 2020-10-02 00:00:00 2020-10-02 00:00:00 Refill VillagomezRupertMario [facility] Office Building 1.2.840.114 350.1.13.10 4.2.7.2.686 [id number] [facility] 2020-09-26 00:00:00 2020-09-26 00:00:00 Telephone HernandoRupert [facility] Building 1.2.840.114 350.1.13.10 4.2.7.2.686 [id number] [facility] 2020-09-25 07:51:04 2020-09-25 23:59:00 Hospital Encounter VillagomezRupertMario [facility] 1.2.840.114 350.1.13.10 4.2.7.2.686 [id number] [facility] 2020-09-25 08:00:00 2020-09-25 08:00:00 Outpatient R HERNANDO LENNYNIALL [facility] [id number] [facility] 2020-09-25 07:50:53 2020-09-25 07:50:53 Hospital Encounter VillagomezRupertMario [facility] 1.2.840.114 350.1.13.10 4.2.7.2.686 [id number] [facility] 2020-09-25 07:50:42 2020-09-25 07:50:42 Hospital Encounter VillagomezRupertMario [facility] 1.2.840.114 350.1.13.10 4.2.7.2.686 [id number] [facility] 2020-09-25 07:50:30 2020-09-25 07:50:30 Hospital Encounter Rupert Villagomez [facility] 1.2.840.114 350.1.13.10 4.2.7.2.686 [id number] [facility] 2020-09-19 00:00:00 2020-09-19 00:00:00 (TEL) STLMLC STLMLC [id number] [facility] 2020-09-18 14:20:00 2020-09-18 14:20:00 Outpatient [facility] [id number] [facility] 2020-09-18 13:37:17 2020-09-18 14:07:17 Office Visit Ismael Fitzpatrick [facility] Office Building One 1..840.114 350.1.13.10 4.2.7.2.686 [id number] [facility] 2020-09-18 13:30:00 2020-09-18 13:30:00 Outpatient ISMAEL CABAN [facility] [id number] [facility] 2020-09-18 00:00:00 2020-09-18 00:00:00 Orders Only Doctor Unassigned, Kaleva [facility] 1..840.114 350.1.13.10 4.2.7.2.686 [id number] [facility] 2020-09-13 00:00:00 2020-09-13 00:00:00 Telephone Rupert Villagomez [facility] 1..840.114 350.1.13.10 4.2.7.2.686 [id number] [facility] 2020-09-12 00:00:00 2020-09-12 00:00:00 (TEL) STLMLC STLMLC [id number] [facility] 2020-09-11 00:00:00 2020-09-11 00:00:00 (TEL) STLMLC STLC [id number] [facility] 2020-09-11 00:00:00 2020-09-11 00:00:00 Orders Only Doctor Unassigned, Kaleva [facility] 1.2840.114 350.1.13.10 4.2.7.2.686 [id number] [facility] 2020-09-10 08:58:16 2020-09-10 09:42:54 Office Visit Rupert Villagomez [facility] 1.2.840.114 350.1.13.10 4.2.7.2.686 [id number] 2020-09-10 08:58:16 2020-09-10 09:42:54 Office Visit Rupert Villagomez [facility] 1.2.840.114 350.1.13.10 4.2.7.2.686 [id number] [facility] 2020-09-10 09:00:00 2020-09-10 09:00:00 Outpatient R RUPERT VILLAGOMEZ [facility] [id number] [facility] 2020-09-06 00:00:00 2020-09-06 00:00:00 (TEL) STLC STLC [id number] [facility] 2020-09-06 00:00:00 2020-09-06 00:00:00 (TEL) STLC STLC [id number] [facility] 2020-08-31 00:00:00 2020-08-31 00:00:00 Orders Only Doctor Unassigned, Kaleva [facility] 1.2840.114 350.1.13.10 4.2.7.2.686 [id number] [facility] 2020-08-21 00:00:00 2020-08-21 00:00:00 Telephone Rupert Villagomez [facility] 1.2.840.114 350.1.13.10 4.2.7.2.686 [id number] [facility] 2020-08-17 12:30:00 2020-08-17 12:30:00 Outpatient R RUPERT VILLAGOMEZ [facility] [id number] [facility] 2020-08-17 11:22:49 2020-08-17 11:37:49 Checker Cashier Visit Pob, Adc Lab Main Rupert Villagomez [facility] Building 1.2.840.114 350.1.13.10 4.2.7.2.686 [id number] [facility] 2020-08-16 14:30:00 2020-08-16 14:30:00 Outpatient MEME ARCEO [facility] [id number] [facility] 2020-08-14 00:00:00 2020-08-14 00:00:00 Patient Secure Msg [facility] 1.2.840.114 350.1.13.10 4.2.7.2.686 [id number] [facility] 2020-08-09 15:04:46 2020-08-09 15:58:07 Office Visit Rupert Villagomez [facility] 1.2.840.114 350.1.13.10 4.2.7.2.686 [id number] [facility] 2020-08-09 15:00:00 2020-08-09 15:00:00 Outpatient R RUPERT VILLAGOMEZ [facility] [id number] [facility] 2020-08-08 00:00:00 2020-08-08 00:00:00 (TEL) STLMLC STLMLC [id number] [facility] 2020-08-02 00:00:00 2020-08-02 00:00:00 Telephone Roas Lizabeth L Jessicavalerie [facility] [place] 1..840.114 350.1.13.10 4.2.7.2.686 [id number] [facility] 2020-07-11 00:00:00 2020-07-11 00:00:00 OL DIG E/M SVC 11-20 MIN STLMLC STLMLC [id number] [facility] 2020-07-11 00:00:00 2020-07-11 00:00:00 Orders Only Doctor Unassigned, Kaleva [facility] 1..840.114 350.1.13.10 4.2.7.2.686 [id number] [facility] 2020-07-05 15:30:00 2020-07-05 15:30:00 Outpatient RUPERT OLIVER [facility] [id number] [facility] 2020-07-05 00:00:00 2020-07-05 00:00:00 Patient Secure Msg Doctor Unassigned, Kaleva [facility] 1..840.114 350.1.13.10 4.2.7.2.686 [id number] [facility] 2020-06-28 13:00:00 2020-06-28 13:00:00 Outpatient RUPERT OLIVER [facility] [id number] [facility] 2020-06-19 00:00:00 2020-06-19 00:00:00 (TEL) STLMLC STLMLC [id number] [facility] 2020-06-13 13:00:00 2020-06-13 13:00:00 Outpatient RUPERT OLIVER [facility] [id number] [facility] 2020-06-13 00:00:00 2020-06-13 00:00:00 (TEL) STLMLC STLMLC [id number] [facility] 2020-06-13 00:00:00 2020-06-13 00:00:00 OL DIG E/M SVC 21+ MIN STLMLC STLMLC [id number] [facility] 2020-05-28 00:00:00 2020-05-28 00:00:00 Telephone Rupert Villagomez [facility] 1.2.840.114 350.1.13.10 4.2.7.2.686 [id number] [facility] 2020-05-23 13:14:26 2020-05-23 14:35:32 Office Visit Rupert Villagomez [facility] 1.2.840.114 350.1.13.10 4.2.7.2.686 [id number] [facility] 2020-05-23 13:00:00 2020-05-23 13:00:00 Outpatient R RUPERT VILLAGOMEZ [facility] [id number] [facility] 2020-05-23 00:00:00 2020-05-23 00:00:00 OFFICE VISIT ESTAB PT LEVEL 2 STLMLC STLMLC [id number] [facility] 2020-05-23 00:00:00 2020-05-23 00:00:00 Orders Only Doctor Unassigned, Kaleva [facility] 1.2.840.114 350.1.13.10 4.2.7.2.686 [id number] [facility] 2020-05-17 00:00:00 2020-05-17 00:00:00 OFFICE VISIT ESTAB PT LEVEL 2 STLMLC STLMLC [id number] [facility] 2020-05-14 00:00:00 2020-05-14 00:00:00 (TEL) STLMLC STLMLC [id number] [facility] 2020-05-09 00:00:00 2020-05-09 00:00:00 OFFICE VISIT EST PT LEVEL 3 STLMLC STLMLC [id number] [facility] 2020-04-27 00:00:00 2020-04-27 00:00:00 (TEL) STLMLC STLMLC [id number] [facility] 2020-04-25 00:00:00 2020-04-25 00:00:00 OFFICE VISIT EST PT LEVEL 3 STLMLC STLMLC [id number] [facility] 2020-03-19 00:00:00 2020-03-19 00:00:00 OFFICE VISIT EST PT LEVEL 3 STLMLC STLMLC [id number] [facility] 2020-03-19 00:00:00 2020-03-19 00:00:00 (TEL) STLMLC STLMLC [id number] [facility] 2020-02-29 00:00:00 2020-02-29 00:00:00 (TEL) STLMLC STLMLC [id number] [facility] 2020-02-28 00:00:00 2020-02-28 00:00:00 (TEL) STLMLC STLMLC [id number] [facility] 2020-02-01 00:00:00 2020-02-01 00:00:00 OFFICE VISIT EST PT LEVEL 3 STLMLC STLMLC [id number] [facility] 2020-01-25 00:00:00 2020-01-25 00:00:00 (TEL) STLMLC STLMLC [id number] [facility] 2020-01-17 00:00:00 2020-01-17 00:00:00 OFFICE VISIT ESTAB PT LEVEL 4 STLMLC STLMLC [id number] [facility] 2020-01-16 00:00:00 2020-01-16 00:00:00 (TEL) STLMLC STLMLC [id number] [facility] 2020-01-12 00:00:00 2020-01-12 00:00:00 (TEL) STLMLC STLC [id number] [facility] 2020-01-11 00:00:00 2020-01-11 00:00:00 (TEL) STLMLC STLMLC [id number] [facility] 2020-01-09 00:00:00 2020-01-09 00:00:00 OFFICE VISIT NEW PT LEVEL 3 STLMLC STLC [id number] [facility] Notes Date/Time Note Provider Source 2023-09-24 08:42:37 Images from the original note were not included. Requested Prescriptions Pending Prescriptions Disp Refills ATORVASTATIN 80 mg tablet [Pharmacy Med Name: Atorvastatin 80mg Tablet] 90 tablet 3 Sig: TAKE ONE (1) TABLET(S) BY MOUTH AT BEDTIME. Patient compliant per [facility] Cardiology Refill Guidelines. Rx sent to: [facility] [place], [place] - [address] [place] [address] [address] Name from pharmacy: Atorvastatin 80mg Tablet Will file in chart as: ATORVASTATIN 80 mg tablet Sig: TAKE ONE (1) TABLET(S) BY MOUTH AT BEDTIME. Disp: 90 tablet (Pharmacy requested: 90 Each) Refills: 3 (Pharmacy requested: Not specified) Start: 09/24/2023 Class: eRX For: Coronary artery disease involving apache coronary artery of apache heart without angina pectoris, Essential hypertension, Dyslipidemia, S/P CABG (coronary artery bypass graft) Last ordered: 1 year ago (09/24/2022) by Rupert Villagomez MD Last refill: 06/23/2023 Rx #: [id number] Cardiovascular: Antilipid - HMG-CoA Reductase Inhibitors Ikylgb3409/24/2023 06:49 AM Protocol Details Valid encounter within last 12 months Total Cholesterol within 360 days LDL within 360 days HDL within 360 days Triglycerides within 360 days AST in normal range and within 360 days ALT in normal range and within 360 days Caprice Ca MA [facility] 2023-09-09 07:43:46 Images from the original note were not included. Requested Renewals Name from pharmacy: Famotidine 20mg Tablet Will file in chart as: FAMOTIDINE 20 mg tablet Sig: TAKE ONE (1) TABLET BY MOUTH IN THE MORNING AND EVENING. Disp: 60 tablet (Pharmacy requested: 60 Each) Refills: 0 (Pharmacy requested: Not specified) Start: 09/09/2023 Class: eRX For: Urticaria Last ordered: 1 month ago (08/04/2023) by Ismael Fitzpatrick MD Last refill: 08/05/2023 Rx #: [id number] Gastroenterology: Antiulcer - H2 Antagonists Zpezti0809/09/2023 06:42 AM Protocol Details Cr in normal range and within 360 days Valid encounter within last 12 months eGFR in normal range and within 360 days To be filled at: [address] CREATININE (mg/dL) Date Value 12/12/2022 1.11 (H) Recent Visits Date Type Provider Dept 06/08/23 Office Visit Ismael Fitzpatrick MD [facility] 07/01/22 Office Visit Ismael Fitzpatrick MD [facility] Showing recent visits within past 540 days with a meds authorizing provider and meeting all other requirements Future Appointments No visits were found meeting these conditions. Showing future appointments within next 150 days with a meds authorizing provider and meeting all other requirements GIET Michelle Cowan LVN [facility] 2023-07-28 06:52:54 Last Refilled: FAMOTIDINE 20 mg tablet 20 tablet 0 06/25/2023 -- No Sig: TAKE ONE (1) TABLET BY MOUTH IN THE MORNING AND 1 TABLET IN THE EVENING. Sent to pharmacy as: famotidine 20 mg tablet (PEPCID AC) Class: eRX Notes to Pharmacy: Sending Erx refill request Order: [id number] Date/Time Signed: 06/25/2023 07:44 E-Prescribing Status: Receipt confirmed by pharmacy (06/25/2023 7:44 AM CDT) Recent Visits Date Type Provider Dept 06/08/23 Office Visit Ismael Fitzpatrick MD [facility] 07/01/22 Office Visit Ismael Fitzpatrick MD [facility] Showing recent visits within past 540 days with a meds authorizing provider and meeting all other requirements Future Appointments No visits were found meeting these conditions. Showing future appointments within next 150 days with a meds authorizing provider and meeting all other requirements Monique Allison [facility] 2023-07-15 07:20:50 Last Refilled: omeprazole 40 mg capsule 30 capsule 2 12/08/2022 -- -- Sig: Take 1 capsule by mouth in the morning. Sent to pharmacy as: omeprazole 40 mg capsule,delayed release (PRILOSEC) Class: eRX Route: Oral Order: [id number] Date/Time Signed: 12/08/2022 08:31 E-Prescribing Status: Receipt confirmed by pharmacy (12/08/2022 8:31 AM CDT Recent Visits Date Type Provider Dept 06/08/23 Office Visit Ismael Fitzpatrick MD [facility] 07/01/22 Office Visit Ismael Fitzpatrick MD [facility] Showing recent visits within past 540 days with a meds authorizing provider and meeting all other requirements Future Appointments No visits were found meeting these conditions. Showing future appointments within next 150 days with a meds authorizing provider and meeting all other requirements Monique Allison [facility] 2023-07-06 15:58:47 Completed Chart review/Care everywhere/Immtrac. Immtrac2 immunizations on file are current. Care Everywhere no new medical records obtained at this time for Overdue HM. Sent patient a message via [employer] of Overdue Health Maintenance with Varicella Questionnaire. No futurre appointments at this time. Insurance on file is currently active. 07/06/23 Health Maintenance team contacted patient to assist in completing Health Maintenance topics that are overdue. Natanael Menabrian Dior [id number] Attempt Number: 1st Health Maintenance topics addressed: Health Maintenance Due Topic Date Due PNEUMOCOCCAL 0-64 YEARS COMBINED SERIES (1 of 2 - PCV) Never done HIV Screening Never done HEPATITIS C (HCV) SCREEN Never done Zoster Recombinant Vaccine (SHINGRIX) (1 of 2) Never done DTaP,Tdap,and Td Vaccines (1 - Tdap) Never done SARS-CoV-2 (COVID-19) Vaccine (3 - Pfizer risk series) 11/06/2020 Breast Cancer Screening (Mammogram) 11/29/2022 Call outcome: Contacted patient to review overdue health maintenance. Scheduled Mammogram on 07/16/2023 @ 1:40. Advised patient to arrive by 1:25 to check in. Recommended to wear something that is two piece and easy to remove the top. Advised no lotion, deodorant or powders on or around the breasts. If there should be an abnormal finding you will follow up with your primary care physician. Also, notified patient I sent her a [employer] message and it shows all vaccines she is currently due for along with a Varicella Questionnaire. Patient acknowledge and agreed. [place], [facility] [phone] 07/20/23 Health Maintenance team contacted patient to assist in completing Health Maintenance topics that are overdue. Natanael Menabrian Dior [id number] Attempt Number: 2nd Health Maintenance topics addressed: Health Maintenance Due Topic Date Due PNEUMOCOCCAL 0-64 YEARS COMBINED SERIES (1 of 2 - PCV) Never done HIV Screening Never done HEPATITIS C (HCV) SCREEN Never done Zoster Recombinant Vaccine (SHINGRIX) (1 of 2) Never done DTaP,Tdap,and Td Vaccines (1 - Tdap) Never done SARS-CoV-2 (COVID-19) Vaccine (3 - Pfizer risk series) 11/06/2020 Breast Cancer Screening (Mammogram) 11/29/2022 Call outcome: Patient was scheduled for a Mammogram on 07/16/2023 @ 1:40-No Show. Contacted patient to reschedule missed Mammogram appointment. Per patient she totally forgot, told her no worries and rescheduled her on 07/30/2023 @ 10:40 [facility] location per patient. Patient acknowledged and agreed. [place], [facility] [phone] Jordana Suarez MA [facility] 2023-06-25 07:42:22 Images from the original note were not included. Requested Renewals Name from pharmacy: Famotidine 20mg Tablet Will file in chart as: FAMOTIDINE 20 mg tablet Sig: TAKE ONE (1) TABLET BY MOUTH IN THE MORNING AND 1 TABLET IN THE EVENING. Disp: 20 tablet (Pharmacy requested: 20 Each) Refills: 0 (Pharmacy requested: Not specified) Start: 06/25/2023 Class: eRX To pharmacy: Sending Erx refill request Last ordered: 1 month ago (05/25/2023) by Ismael Fitzpatrick MD Last refill: 06/16/2023 Rx #: [id number] Gastroenterology: Antiulcer - H2 Antagonists Dtauwz4206/25/2023 06:41 AM Protocol Details Cr in normal range and within 360 days Valid encounter within last 12 months eGFR in normal range and within 360 days To be filled at: [address] CREATININE (mg/dL) Date Value 12/12/2022 1.11 (H) Recent Visits Date Type Provider Dept 06/08/23 Office Visit Ismael Fitzpatrick MD [facility] 07/01/22 Office Visit Ismael Fitzpatrick MD [facility] Showing recent visits within past 540 days with a meds authorizing provider and meeting all other requirements Future Appointments No visits were found meeting these conditions. Showing future appointments within next 150 days with a meds authorizing provider and meeting all other requirements Michelle Cowan LVN [facility] 2023-06-19 13:39:33 Images from the original note were not included. Notified patient per Dr Rajan: Vi Rajan MD Castaneda, Lion[place], MA; Cardiology Nurse1 hour ago (12:10 PM) Stop it, no alternative. Patient verbal understanding and stated rash and blisters are doing much better but is having some nausea but is taking medication for it and will call us back if she needs anything else. Cristal Gibbons MA [facility] 2023-06-19 12:10:20 Stop it, no alternative. IM-CARDIOVASCULAR DISEASE STAFF [facility] 2023-06-19 12:09:11 Routed to MD for chart/MAR review. [facility] 2023-06-17 12:00:47 Copied from CRM #[id number]. Topic: Clinical - Medical Advice >> Jun 17, 2023 12:00 PM Patient Procurement Manager wrote: Natanael Dior is a 62 year old female Pt is calling back about medication empagliflozin 10 mg tablet. She said she has talked to Dr Villagomez's nurse about how she thought the med was giving her huge rashes and the nurse told her it wasn't the medication. She said she also talked to her pcp about it and they told her it wasn't the medication either but she stopped taking it for 2 days and her rash has completely healed. She wants to discuss this with either a nurse or the dr. Please advise Briseida Recio [facility] 2023-06-03 13:54:05 Informed Patient appointment would be needed Next Appt: With Family Medicine (Ismael Fitzpatrick MD) 06/04/2023 at 4:00 PM Vandana Romero MA [facility] 2023-06-03 10:22:54 Natanael Dior is a 62 year old female patient requesting to speak with a nurse. Patient has giant round blisters that are very itchy developing on her whole body. Thinks it may be an allergic reaction to new hay. Has been taking children's benadryl, but they are still spreading. Herve Caldwell [facility] 2023-06-02 14:59:53 Attempted to reach patient , No Answer left message on Voice Mail Appointment was scheduled by patient Next Appt: With Family Medicine (Ismael Fitzpatrick MD) 06/04/2023 at 4:00 PM Vandana Romero MA [facility] 2023-06-02 11:51:07 Spoke with patient she states she has a rash on her right side of her body she thinks its from hay she picked up today. She is requesting a call back form a Nanette Kaye's nurse. Pt is scheduled to come in on 06/03 Henny Shipley [facility] 2023-05-13 15:48:52 Spoke with patient, Dr. Villagomez's recommendations given. Advised her make annual follow up with PCP for A1c monitoring. Also will increase water intake. Aware redo labs in 2-3 weeks. All verbally understood. [employer] [facility] 2023-05-13 10:05:54 Labs dated 05/07/2023 reviewed from the cardiac standpoint. Potassium stable at 4.2, creatinine mildly elevated 1.4. NT-proBNP stable at 141. Magnesium level normal. A1c in the prediabetic range at 5.5. Continue with the current dose of Jardiance 10 mg daily with rest of the medications without any further changes. Please make sure she is well-hydrated with at least 60 ounces of free water on a daily basis. Recommend to repeat BMP alone in around 2 to 3 weeks time after adequate hydration to recheck the creatinine/potassium. Orders placed. [facility] 2023-05-12 11:40:24 Patient is calling in to get her results from the lab work we received from [facility], please advise. Looks like the were scanned into pts chart on 05/07 as well under Scanned Lab Result [facility] Lizzie Wright [facility] 2023-04-03 09:46:49 Elle, The prior authorization has been approved for the following medication: Drug: Jardiance Insurance: [employer] Medicaid DE#: [id number] [place] Expires: 04/02/2024 CoverMyMeds [place]: [id number] We will be reaching out to the patient to schedule a picker / packer or delivery of the medication and relocation counselor the patient on use. Thank you AN Ayala [facility] 2023-04-01 09:00:00 Reviewed with the patient today in the office visit 04/01/2023 [facility]
[2023-11-21] MEDS ORDERED: ONDANSETRON 4 MG/2 ML VIAL ONE (14:06)
[2023-11-21] MEDS ORDERED: NA CHLORIDE 0.9% 1,000 ML ONE ×2 (14:07→18:56)
[2023-11-21] MEDS ORDERED: MORPHINE 4 MG/ML SYR ONE ×2 (14:07→15:20)
[2023-11-21] MEDS ORDERED: FAMOTIDINE 20 MG/2 ML VIAL IV ONE (14:07)
[2023-11-21 14:24] LABS: Absolute Basophils 0.1 K/uL (0-0.5); Absolute Eosinophils 0.6 K/uL (0-0.5); Absolute Lymphocytes (CBC) 1.2 K/uL (0.7-4.9); Absolute Neutrophil 4.9 K/uL (1.8-8.0); Eosinophils % 7.2 % (0-4.4); Hematocrit 31.6 % (36.0-45.0); Lymphocytes % 14.9 % (15.3-44.8); MCH 26.9 pg (27.0-35.0); MCHC 31.7 g/dL (32.0-36.0); MPV 8.3 fL (7.6-11.3); Monocytes % 13.2 % (3.3-12.3); Neutrophils % 63.7 % (41.7-73.7); Platelets 269 thou/uL (152-406); RBC Red Blood Cell Count 3.72 M/uL (3.86-4.86); Red Cell Distribution Width 14.8 % (12.1-15.2)
[2023-11-21 14:44] LABS: Albumin 3.2 g/dL (3.4-5.0); Albumin/Globulin Ratio 0.7 (1.1-1.8); Anion Gap 11.7 mEq/L (5.0-15.0); Bilirubin Total 0.4 mg/dL (0.2-1.0); Globulin 4.5 g/dL (2.3-3.5); Potassium 3.7 mEq/L (3.5-5.1); Protein, Total 7.7 g/dL (6.4-8.2)
[2023-11-21 15:22] LABS: Specific Gravity 1.007 (1.005-1.030); Sqamous Epithelial <5 /HPF (None Seen); Urine Bacteria None Seen /HPF (<20); Urine Bilirubin NEGATIVE (Negative); Urine Blood Negative (Negative); Urine Clarity Clear (Clear); Urine Color Colorless (Yellow); Urine Culture Reflex Order NOT NEEDED; Urine Glucose NEGATIVE (Negative); Urine Ketones NEGATIVE (Negative); Urine Microscopic Reflex YN ORDER UMIC; Urine Nitrite NEGATIVE (Negative); Urine Protein NEGATIVE (Negative); Urine RBC <5 /HPF (None Seen); Urine Urobilinogen Normal (Normal); Urine WBC None Seen /HPF (<5); Urine pH 5.5 (5.0-7.0)
[2023-11-21] MEDS ORDERED: KETOROLAC 30 MG/ML INJ ONE (16:07)
--- NOTE | 2023-11-21 16:40 | RAD REPORT ---
EXAM DESCRIPTION: CT - Abdomen Pelvis Wo Contrast - 11/21/2023 3:48 pm CLINICAL HISTORY: Abd pain;Pain COMPARISON: Abdomen Pelvis W Contrast dated 09/13/2020; Abdomen Pelvis Wo Contrast dated 08/08/2020 TECHNIQUE: Thin cut axial CT imaging of the abdomen and pelvis was performed without IV contrast. Mu ltiplanar reformats were generated and reviewed. All CT scans are performed using dose optimization technique as appropriate and may include automated exposure control or mA/KV adjustment according to patient size. FINDINGS: No suspicious findings in the lung bases. The liver, spleen, adrenal glands, and pancreas show no suspicious findings. Gallbladder and biliary tree are also without suspicious finding. Status post right nephrectomy. No suspicious parenchymal findings in the left kidney, within limits o f noncontrast technique. No evidence of radiopaque calculi or hydroureteronephrosis. No dilated bowel loops. Sigmoid diverticulosis. Focal wall thickening and adjacent inflammatory bonds es along the distal sigmoid colon. Ill-defined probable intramural collection along the inferomedial sigmoid colon wall in this region, measuring approximately 2.2 x 1.6 x 2.4 cm. No free air, free flui d or other inflammatory stranding. No hernia, mass or bulky lymphadenopathy. Status post hysterectomy . The urinary bladder is without significant finding. No suspicious bony findings. IMPRESSION: Findings of acute distal sigmoid diverticulitis, with suggestion of ill-defined inferome dial wall intramural abscess/ phlegmon, measuring up to 2.4 cm. Status post right nephrectomy. The findings were communicated to Rai Srivastava on 11/21/2023 at 16:33 hours.
--- NOTE | 2023-11-21 16:50 | EDPHYS ---
Physician Documentation [facility] Name: Barak Dior Age: 63 yrs Sex: Female : 1960 Arrival Date: 11/21/2023 Time: 13:46 Bed 18 Private MD: Rai Craig HPI: 11/20 14:10 This 63 yrs old Female presents to ER via Ambulatory with complaints of Abdominal Pain. cp 14:10 The patient presents with abdominal pain in the lower abdomen. cp 14:10 Onset: The symptoms/episode began/occurred today. The symptoms radiate to back and cp pelvis. Associated signs and symptoms: Pertinent negatives: diarrhea, dysuria, fever, hematuria, shortness of breath, vomiting. The symptoms are described as constant. Historical: - Allergies: 14: No Known Allergies; tm6 - PMHx: 14:01 Cholecystitis; Chronic obstructive lung disease; Hypertensive disorder; bladder cancer tm6 (Hypertensive disorder); - PSHx: 14:01 cancer bladder; section; Coronary artery bypass graft; kidney removal; tm6 - Immunization history:: Client reports receiving the 2nd dose of the Covid vaccine. - Infectious Disease History:: Denies. - Social history:: Smoking status: Reported history of juuling and/or vaping. Patient/guardian denies using tobacco, the patient reports quitting approximately 3 years ago, Patient/guardian denies using alcohol. ROS: 14:15 Constitutional: Negative for body aches, chills, fever, poor PO intake, cp 14:15 Eyes: Negative for injury, pain, redness, and discharge, cp 14:15 ENT: Negative for drainage from ear(s), ear pain, sore throat, difficulty swallowing, difficulty handling secretions, 14:15 Cardiovascular: Negative for chest pain, 14:15 Respiratory: Negative for cough, shortness of breath, wheezing, 14:15 Abdomen/GI: Positive for abdominal pain, of the suprapubic area, right lower quadrant and left lower quadrant, Negative for vomiting, diarrhea, constipation, black/tarry stool, rectal bleeding, 14:15 Back: Positive for radiated pain, 14:15 Neuro: Negative for altered mental status, headache, weakness, 14:15 All other systems are negative, Exam: 14:20 Constitutional: The patient appears in no acute distress, alert, awake, cp non-diaphoretic, non-toxic, well developed, well nourished, uncomfortable, 14:20 Head/Face: Normocephalic, atraumatic. cp 14:20 Eyes: Periorbital structures: appear normal, Conjunctiva: normal, no exudate, no injection, Sclera: no appreciated abnormality, Lids and lashes: appear normal, bilaterally, 14:20 ENT: External ear(s): are unremarkable, Nose: is normal, Mouth: Lips: moist, Oral mucosa: moist, Posterior pharynx: Airway: no evidence of obstruction, patent, 14:20 Chest/axilla: Inspection: normal, 14:20 Cardiovascular: Rate: normal, Rhythm: regular, 14:20 Respiratory: the patient does not display signs of respiratory distress, Respirations: normal, no use of accessory muscles, no retractions, labored breathing, is not present, Breath sounds: are clear throughout, no decreased breath sounds, no stridor, no wheezing, 14:20 Abdomen/GI: Inspection: abdomen appears normal, Bowel sounds: active, all quadrants, Palpation: soft, in all quadrants, moderate abdominal tenderness, in the suprapubic area, right lower quadrant and left lower quadrant, rebound tenderness, is not appreciated, involuntary guarding, is not appreciated, 14:20 Back: ROM is normal, CVA tenderness, is absent, Vital Signs: 13:58 BP 190 / 92; Pulse 73; Resp 19; Temp 99(O); Pulse Ox 100% on R/A; Weight 64.86 kg; tm6 Height 5 ft. 4 in. ; Pain 10/10; 16:02 BP 179 / 90; Pulse 67; Pulse Ox 99% on R/A; Pain 10/10; tm6 19:40 BP 134 / 82; Pulse 68; Resp 16; Temp 98.8; Pulse Ox 98% on R/A; jb4 13:58 Body Mass Index 24.55 (64.86 kg, 162.56 cm) tm6 13:58 Pain Scale: Adult tm6 16:02 Pain Scale: Adult tm6 MDM: 14:05 Patient medically screened. [facility] 15:00 Differential diagnosis: appendicitis, diverticulitis, non-specific abd pain, cp pancreatitis, Peritonitis, Pyelonephritis, Ureterolithiasis, urinary tract infection. 17:00 Data reviewed: vital signs, nurses notes, lab test result(s), radiologic studies, CT cp scan, I have discussed the patient's presentation/case with the attending Emergency Department Physician; and as a result, I will admit patient. 17:00 Management of patient was discussed with the following: Hospitalist: will admit to cp services after discussion. Zosyn antibiotic started. Consult with general surgery DR Santana. 11/20 14:04 Order name: CBC with Diff; Complete Time: 15:17 [facility] 11/20 16:41 Interpretation: Normal except: RBC 3.72; HGB 10.0; HCT 31.6; MCH 26.9; MCHC 31.7; LYM% cp 14.9; MN% 13.2; EOSINOPHIL % 7.2; EOSA 0.6. 11/20 14:04 Order name: CMP; Complete Time: 15:17 [facility] 11/20 14:04 Order name: Lipase; Complete Time: 15:17 [facility] 11/20 14:04 Order name: Urinalysis w/ reflexes; Complete Time: 16:04 [facility] 11/20 16:36 Order name: Lactate w/ 2H reflex if indic. cp 11/20 16:36 Order name: Blood Culture Adult (2) cp 11/20 18:00 Order name: Urinalysis w/ reflexes EDMS 11/20 18:00 Order name: Basic Metabolic Panel EDMS 11/20 18:00 Order name: Basic Metabolic Panel EDMS 11/20 18:00 Order name: Basic Metabolic Panel EDMS 11/20 18:00 Order name: Basic Metabolic Panel EDMS 11/20 18:00 Order name: Basic Metabolic Panel EDMS 11/20 18:00 Order name: Basic Metabolic Panel EDMS 11/20 18:00 Order name: CBC with Automated Diff EDMS 11/20 18:00 Order name: CBC with Automated Diff EDMS 11/20 18:00 Order name: CBC with Automated Diff EDMS 11/20 18:00 Order name: CBC with Automated Diff EDMS 11/20 18:00 Order name: CBC with Automated Diff EDMS 11/20 18:00 Order name: CBC with Automated Diff EDMS 11/20 18:00 Order name: Magnesium EDMS 11/20 18:00 Order name: Magnesium EDMS 11/20 18:00 Order name: Magnesium EDMS 11/20 18:00 Order name: Magnesium EDMS 11/20 18:00 Order name: Magnesium EDMS 11/20 18:00 Order name: Magnesium EDMS 11/20 18:00 Order name: Phosphorus EDMS 11/20 18:00 Order name: Phosphorus EDMS 11/20 18:00 Order name: Phosphorus EDMS 11/20 18:00 Order name: Phosphorus EDMS 11/20 18:00 Order name: Phosphorus EDMS 11/20 18:00 Order name: Phosphorus EDMS 11/20 15:40 Order name: Abdomen ; Complete Time: 16:43 EDMS 11/20 18:00 Order name: CONS Physician Consult EDMS 11/20 14:04 Order name: IV Saline Lock; Complete Time: 14:18 fredi 11/20 14:04 Order name: Labs collected and sent; Complete Time: 14:18 fredi Administered Medications: 14:17 Drug: NS 0.9% IV 1000 ml IV at 1 bolus Per protocol; 1000 mL bolus Route: IV; Rate: 1 tm6 bolus; Site: left antecubital; 19:10 Follow up: Response: No adverse reaction; IV Status: Completed infusion; IV Intake: tm6 1000ml 14:17 Drug: Famotidine IVP 20 mg IVP once; dilute with 10 mL 0.9% NaCl; give over 2 minutes tm6 Route: IVP; Site: left antecubital; 15:26 Follow up: Response: No adverse reaction tm6 14:17 Drug: Ondansetron IVP 4 mg IVP once; over 2 minutes Route: IVP; Site: left antecubital; tm6 16:03 Follow up: Response: No adverse reaction tm6 14:17 Drug: morphine IVP or IV 4 mg IVP once over 4 mins Route: IVP; Infused Over: 4 mins; tm6 Site: left antecubital; 15:26 Follow up: Response: No adverse reaction tm6 15:26 Drug: morphine IVP or IV 4 mg IVP once over 4 mins Route: IVP; Infused Over: 4 mins; tm6 Site: left antecubital; 16:03 Follow up: Response: No adverse reaction; Pain is unchanged, physician notified tm6 16:10 Drug: Ketorolac IVP 15 mg IVP once Route: IVP; Site: left antecubital; tm6 16:34 Follow up: Response: No adverse reaction; Pain is decreased tm6 19:05 Drug: Piperacillin-Tazobactam IVPB 3.375 grams IVPB once over 60 mins; (mix in NS 100 tm6 mL) Route: IVPB; Infused Over: 60 mins; Site: left antecubital; Disposition Summary: 11/21/23 16:49 Hospitalization Ordered Notes: Hospitalization Status: Inpatient Admission cp Provider: Maria Esther Love cp Condition: Stable cp Problem: new cp Symptoms: have improved cp Bed/Room Type: Standard cp Location: Telemetry/MedSurg (Inpatient)(11/21/23 18:51) dw Room Assignment: 205(11/21/23 18:51) dw Diagnosis - Diverticulitis of large intestine with perforation and abscess without bleeding cp Forms: - Medication Reconciliation Form cp - SBAR form cp - Leadership Thank You Letter cp Addendum: 11/28/2023 15:40 Co-signature as Attending Physician, Rai Srivastava MD I agree with the assessment and c polanco plan of care. Signatures: Dispatcher [employer] EDFiona Ribeiro RN RN dw Anderson, Corey, MD MD cha Pinkerton, Shawna sp Page, Corey, PA PA Patricia Medina RN RN tm6 Corrections: (The following items were deleted from the chart) 11/20 15:40 14:05 Abdomen Pelvis W Con+CT.RAD.BRZ ordered. EDMS EDMS 16:37 16:37 LACTATE+C.LAB.BRZ ordered. EDMS EDMS 16:37 16:37 BLOOD CULTURE*+BA.LAB.BRZ ordered. EDMS EDMS 18:47 16:49 cp sp 18:48 16:49 Telemetry/MedSurg (Inpatient) cp dw 18:48 18:47 205 sp dw 18:51 18:48 [facility] ER HOLD dw dw 18:51 18:48 dw dw
--- NOTE | 2023-11-21 16:50 | ER ---
Nurse's Notes [facility] Name: Barak Dior Age: 63 yrs Sex: Female : 1960 Arrival Date: 11/21/2023 Time: 13:46 Bed 18 Private MD: Diagnosis: Diverticulitis of large intestine with perforation and abscess without bleeding Presentation: 11/20 13:58 Chief complaint: EMS states: severe suprapubic pain that radiates to anus. Pain is tm6 throbbing, intermittent, and 10/10. Coronavirus screen: Vaccine status: Patient reports receiving the 2nd dose of the covid vaccine. Ebola Screen: Patient negative for fever greater than or equal to 101.5 degrees Fahrenheit, and additional compatible Ebola Virus Disease symptoms Patient denies exposure to infectious person. Patient denies travel to an Ebola-affected area in the 21 days before illness onset. No symptoms or risks identified at this time. Initial Sepsis Screen: Does the patient meet any 2 criteria? No. Patient's initial sepsis screen is negative. Does the patient have a suspected source of infection? No. Patient's initial sepsis screen is negative. Risk Assessment: Do you want to hurt yourself or someone else? Patient reports no desire to harm self or others. Onset of symptoms was November 21, 2023. 13:58 Method Of Arrival: Ambulatory tm6 13:58 Acuity: SAM 3 tm6 Triage Assessment: 14:01 General: Appears in no apparent distress. Behavior is cooperative. Pain: Complains of tm6 pain in gluteal cleft and suprapubic area Pain currently is 10 out of 10 on a pain scale. Quality of pain is described as throbbing, Is intermittent. EENT: No signs and/or symptoms were reported regarding the EENT system. Neuro: Level of Consciousness is awake, alert, obeys commands, Oriented to person, place, time, situation. Cardiovascular: Patient's skin is warm and dry. Respiratory: Airway is patent Respiratory effort is even, unlabored, Respiratory pattern is regular, symmetrical. GI: Abdomen is flat, non-distended, Abd is soft and non tender X 4 quads. Reports lower abdominal pain. : No signs and/or symptoms were reported regarding the genitourinary system. Derm: No signs and/or symptoms reported regarding the dermatologic system. Musculoskeletal: No signs and/or symptoms reported regarding the musculoskeletal system. Historical: - Allergies: 14:01 No Known Allergies; tm6 - PMHx: 14:01 Cholecystitis; Chronic obstructive lung disease; Hypertensive disorder; bladder cancer tm6 (Hypertensive disorder); - PSHx: 14:01 cancer bladder; section; Coronary artery bypass graft; kidney removal; tm6 - Immunization history:: Client reports receiving the 2nd dose of the Covid vaccine. - Infectious Disease History:: Denies. - Social history:: Smoking status: Reported history of juuling and/or vaping. Patient/guardian denies using tobacco, the patient reports quitting approximately 3 years ago, Patient/guardian denies using alcohol. Screenin:03 [facility] ED Fall Risk Assessment (Adult) History of falling in the last 3 months, tm6 including since admission No falls in past 3 months (0 pts) Confusion or Disorientation No (0 pts) Intoxicated or Sedated No (0 pts) Impaired Gait No (0 pts) Mobility Assist Device Used No (0 pt) Altered Elimination No (0 pt) Score/Fall Risk Level 0 - 2 = Low Risk Oriented to surroundings, Maintained a safe environment, Educated pt \T\ family on fall prevention, incl call for assistance when getting out of bed. Abuse screen: Denies threats or abuse. Denies injuries from another. Nutritional screening: No deficits noted. Tuberculosis screening: No symptoms or risk factors identified. Assessment: 14:03 Reassessment: see triage assessment. GI: Bowel sounds present X 4 quads. tm6 19:00 Reassessment: Patient appears in no apparent distress at this time. Patient and/or jb4 family updated on plan of care and expected duration. Pain level reassessed. Patient is alert, oriented x 3, equal unlabored respirations, skin warm/dry/pink. 19:51 Reassessment: Patient appears in no apparent distress at this time. Patient and/or jb4 family updated on plan of care and expected duration. Pain level reassessed. Patient is alert, oriented x 3, equal unlabored respirations, skin warm/dry/pink. Vital Signs: 13:58 BP 190 / 92; Pulse 73; Resp 19; Temp 99(O); Pulse Ox 100% on R/A; Weight 64.86 kg; tm6 Height 5 ft. 4 in. ; Pain 10/10; 16:02 BP 179 / 90; Pulse 67; Pulse Ox 99% on R/A; Pain 10/10; tm6 19:40 BP 134 / 82; Pulse 68; Resp 16; Temp 98.8; Pulse Ox 98% on R/A; jb4 13:58 Body Mass Index 24.55 (64.86 kg, 162.56 cm) tm6 13:58 Pain Scale: Adult tm6 16:02 Pain Scale: Adult tm6 ED Course: 13:58 Patient arrived in ED. tm6 14:01 Triage completed. tm6 14:01 Arm band placed on right wrist. tm6 14:03 Patient has correct armband on for positive identification. Bed in low position. Call tm6 light in reach. Side rails up X2. Provided Education on: use of call auguste. Client placed on continuous cardiac and pulse oximetry monitoring. NIBP monitoring applied. Pulse ox on. NIBP on. Door closed. Noise minimized. 14:03 Maintain EMS IV. Dressing intact. Good blood return noted. Site clean \T\ dry. Gauge \T\ tm 6 site: 20g LAC. Flushed with 10 mL NS. 14:04 Rai Paz PA is PHCP. cp 14:04 Rai Srivastava MD is Attending Physician. cp 14:17 Patricia Inman, XANDER is Primary Nurse. tm6 14:18 CBC with Diff Sent. tm6 14:18 CMP Sent. tm6 14:18 Lipase Sent. tm6 14:18 Urinalysis w/ reflexes Sent. tm6 14:48 Initial lab(s) drawn, by me, sent to lab. oh1 15:50 Abdomen In Process Unspecified. EDMS 16:48 Maria Esther Love MD is Hospitalizing Provider. cp 17:40 First set of blood cultures drawn by me. oh1 17:55 Second set of blood cultures drawn by me. oh1 18:14 Attempted to contact patient's emergency contact, Nathalie twice with no answer at the oh1 request of the patient. 18:53 Attempted to contact patient's emergency contact, Nathalie, twice with no answer at the oh1 request of the patient. 19:01 Attempted to contact the patient's emergency contact, Nathalie with no answer at the oh1 request of the patient I left a voicemail explaining that the patient was going to be hospitalized and how to get in contact with the emergency department. 19:40 No provider procedures requiring assistance completed. Patient admitted, IV remains in jb4 place. Administered Medications: 14:17 Drug: NS 0.9% IV 1000 ml IV at 1 bolus Per protocol; 1000 mL bolus Route: IV; Rate: 1 tm6 bolus; Site: left antecubital; 19:10 Follow up: Response: No adverse reaction; IV Status: Completed infusion; IV Intake: tm6 1000ml 14:17 Drug: Famotidine IVP 20 mg IVP once; dilute with 10 mL 0.9% NaCl; give over 2 minutes tm6 Route: IVP; Site: left antecubital; 15:26 Follow up: Response: No adverse reaction tm6 14:17 Drug: Ondansetron IVP 4 mg IVP once; over 2 minutes Route: IVP; Site: left antecubital; tm6 16:03 Follow up: Response: No adverse reaction tm6 14:17 Drug: morphine IVP or IV 4 mg IVP once over 4 mins Route: IVP; Infused Over: 4 mins; tm6 Site: left antecubital; 15:26 Follow up: Response: No adverse reaction tm6 15:26 Drug: morphine IVP or IV 4 mg IVP once over 4 mins Route: IVP; Infused Over: 4 mins; tm6 Site: left antecubital; 16:03 Follow up: Response: No adverse reaction; Pain is unchanged, physician notified tm6 16:10 Drug: Ketorolac IVP 15 mg IVP once Route: IVP; Site: left antecubital; tm6 16:34 Follow up: Response: No adverse reaction; Pain is decreased tm6 19:05 Drug: Piperacillin-Tazobactam IVPB 3.375 grams IVPB once over 60 mins; (mix in NS 100 tm6 mL) Route: IVPB; Infused Over: 60 mins; Site: left antecubital; Medication: 14:03 VIS not applicable for this client. tm6 Intake: 19:10 IV: 1000ml; Total: 1000ml. tm6 Outcome: 16:49 Decision to Hospitalize by Provider. cp 19:40 Admitted to Med/surg accompanied by nurse, via wheelchair, room 205, with chart, jb4 19:40 Condition: stable 19:40 Discharge instructions given to patient, Instructed on the need for admit, Demonstrated understanding of instructions, 19:53 Patient left the ED. jb4 Signatures: Dispatcher [employer] EDMS Rai Paz PA PA cp Bryson, James RN RN jb4 Patricia Inman RN RN tm6 Caitie Shane fl1
[2023-11-21] MEDS ORDERED: NA CHLORIDE 0.9% 100 ML ONE (17:02)
[2023-11-21] MEDS ORDERED: PIPERACIL/TAZO 3.375 GM VIAL IV ONE (17:02)
--- NOTE | 2023-11-21 17:28 | P.HP ---
Certification for Inpatient Patient admitted to: Inpatient With expected LOS: >2 Midnights Patient will require the following post-hospital care: None Practitioner: I am a practitioner with admitting privileges, knowledge of patient current condition, hospital course, and medical plan of care. Services: Services provided to patient in accordance with Admission requirements found in Title 42 Section 412.3 of the Code of Federal Regulations Patient History Date of Service: 11/21/23 Reason for admission: Acute sigmoid diverticulitis History of Present Illness: Barak Dior is a 63 year old female with Pmhx Cholecystitis; Chronic obstructive lung disease; Hypertensive disorder; bladder cancer who presents to the ED with chief complaint of lower abdomnial pain. She reports severe abdominal pain for five days and remembers having nausea and abdominal pain in the past but didn't believe it was a problem since it was relieved. She reports seeing Dr. Nation for a colonoscopy but was unable to perform it d/t her bowel being "twisted". She reports using vape and marjiuana daily. CT abd/pelvis showing acute sigmoid diverticulitis with 2.4 cm abscess. Significant labs sodium 135, BUN/creatinine 17/1.09, GFR 57. Initial vitals BP 190 / 92; Pulse 73; Resp 19; Temp 99(O); Pulse Ox 100% on R/A. Barby will be admitted to hospitalist service for further treatment of acute sigmoid diverticulitis with abscess. Allergies No Known Allergies Allergy (Verified 09/03/20 14:10) Home Medications: Albuterol Inhaler [Ventolin Inhaler] 2 puff IH Q4HP PRN 09/03/20 Aspirin [Aspirin EC 81 MG] 81 mg PO DAILY 09/03/20 Atorvastatin Calcium [Lipitor] 80 mg PO BEDTIME 09/03/20 Budesonide/Formoterol Fumarate [Symbicort 160-4.5 Mcg Inhaler] 1 puff IH BEDTIME 09/03/20 Fluticasone [Flonase 50mcg Nasal [place]] 1 sprays NS DAILY 09/03/20 Lisinopril [Zestril] 10 mg PO BID 09/03/20 Montelukast [Singulair] 10 mg PO BEDTIME 09/03/20 Pantoprazole [Protonix Tab] 40 mg PO BEDTIME 09/03/20 Venlafaxine HCl [Venlafaxine HCl ER] 75 mg PO BEDTIME 09/03/20 - Past Medical/Surgical History -: COPD -: HTN -: Bladder Cancer -: CAD s/p CABG -: right nephrectomy -: CABG - Social History Smoking Status: Former smoker Review of Systems Gastrointestinal: Nausea, Vomiting, Abdominal Pain Physical Examination - Physical Exam General: Alert, In no apparent distress, Oriented x3 HEENT: Atraumatic, Normocephalic, PERRLA Neck: Supple, 2+ carotid pulse no bruit Respiratory: Clear to auscultation bilaterally, Normal air movement Cardiovascular: No edema, Normal pulses, Regular rate/rhythm, Normal S1 S2 Capillary refill: <2 Seconds Gastrointestinal: Normal bowel sounds, Soft and benign, Tenderness Musculoskeletal: No clubbing Integumentary: No rashes Neurological: Normal speech, Normal tone - Studies Laboratory Data (last 24 hrs) 11/21/23 11/21/23 14:13 14:08 WBC 7.70 Hgb 10.0 L Hct 31.6 L Plt Count 269 Sodium 135 L Potassium 3.7 BUN 17 Creatinine 1.09 H Glucose 96 Total Bilirubin 0.4 AST 13 L ALT 17 Alkaline Phosphatase 83 Lipase 27 Assessment and Plan - Plan Assessment and plan Acute sigmoid diverticulitis with 2.4 cm abscess Lower abdominal pain Nausea -N.p.o. -Dr. Santana consulted -IV fluids -Cipro and Flagyl -Pain control antiemetics -Follow blood cultures ALEXSANDER -BUN/creatinine 17/1.09, GFR 57 -IV fluids -Monitor in a.m. labs History of COPD History of hypertension History of bladder cancer History of CAD status post CABG History of nephrectomy -Continue home medication -Continue follow-up outpatient Substance abuse -vape and marijuana use daily DVT PPx SCDs Full code LOS 2 days Discharge Plan: Home Plan to discharge in: 48 Hours - Advance Directives Does patient have a Living Will: No Does patient have a Durable POA for Healthcare: No
[2023-11-21] MEDS: NA CHLORIDE 0.9% 1,000 ML IV SCH (18:00)
[2023-11-21] MEDS ORDERED: HYDROCODONE/APAP 5/325 MG TAB ONE (18:56)
[2023-11-21] MEDS ORDERED: MORPHINE 4 MG/ML SYR IV PRN (19:03)
[2023-11-21] MEDS: HYDROCODONE/APAP 5/325 MG TAB PO PRN (19:06)
[2023-11-21 20:31] VITALS: BMI 24.5
[2023-11-21] MEDS: CIPROFLOXACIN 400mg IV 400 MG/200 ML BAG IV SCH (22:02)
--- NOTE | 2023-11-21 22:09 | P.CNS ---
Date of Consult: 11/21/23 PC: This 63-year-old female presented to the emergency room with severe abdominal pain for diagnosis and treatment. HPC: This patient, has been having abdominal pain for about the last week. She had been at home with it. She thought the pain was going resolved by itself, but did not. It progressed and became so severe she needed to come to the emergency room. Describes the pain is severe, hurts when she tries to move. She also says she had the experience as if she may have passed some gas vaginally, and is concerned about some bloody drainage. PSHx: This patient has a previous history of bladder cancer necessitating a right nephrectomy with removal of the ureter. Sees urologist for follow-up of her bladder. She was also recently scheduled for a colonoscopy. It was unable to be done and a barium enema was recommended. The barium enema was unsuccessful. She did not follow-up any further. PMHx: Hypertension Social Hx: No known allergies Sys R: No cough, wheeze, shortness of breath. No chest pain or palpitations. Mentioned and demonstrated that she has some blood on her darío-pad. Says this coming from the vaginal area. O/E: Awake alert vital signs are stable, patient is stable at the moment in relatively good spirits. She is afebrile. HEENT: Within normal limits Chest: Air entry equal bilaterally Abd: Patient is tender in the suprapubic area with mild guarding. Does not have peritoneal signs. Pollok: Intact Data: CT demonstrates sigmoid diverticulitis with small phlegmon and possible abscess. There is no free air. No free fluid noted. Impression: This patient, has had an episode of acute diverticulitis. She may have had a small abscess which is to be contained. There is a concern is whether she has a colovaginal fistula [she has had a hysterectomy in the past]. At the current time does not require emergent surgical intervention. Plan: The patient will be allowed sips of water, she can take her regular medicines. We will keep her on IV antibiotics, and IV fluids. We will follow her with clinical exam. We will repeat the labs in the AM.
[2023-11-21] MEDS: HYDRALAZINE HCL 20 MG/ML VIAL IV PRN (22:26)
[2023-11-21] MEDS: ONDANSETRON 4 MG/2 ML VIAL IV PRN (23:15)
[2023-11-22] MEDS: METRONIDAZOLE 500mg IVPB 500 MG/100 ML BAG IV SCH (02:39)
[2023-11-22] MEDS ORDERED: SODIUM CHLORIDE 0.9% 10ML INJ IV PRN (06:59)
[2023-11-22 07:41] LABS: Absolute Basophils 0.1 K/uL (0-0.5); Absolute Eosinophils 0.3 K/uL (0-0.5); Absolute Lymphocytes (CBC) 0.9 K/uL (0.7-4.9); Absolute Monocytes 0.6 K/uL (0.1-1.3); Absolute Neutrophil 3.8 K/uL (1.8-8.0); Eosinophils % 4.7 % (0-4.4); Hematocrit 28.1 % (36.0-45.0); Hemoglobin 9.4 g/dL (12.0-15.0); Lymphocytes % 15.3 % (15.3-44.8); MCH 28.2 pg (27.0-35.0); MCHC 33.4 g/dL (32.0-36.0); MCV 84.4 fL (80-100); MPV 8.2 fL (7.6-11.3); Monocytes % 10.9 % (3.3-12.3); Neutrophils % 68.1 % (41.7-73.7); Nucleated Red Blood Cells % 0.1 % (0-0); Platelets 257 thou/uL (152-406); RBC Red Blood Cell Count 3.33 M/uL (3.86-4.86); Red Cell Distribution Width 15.1 % (12.1-15.2)
[2023-11-22 07:52] LABS: Anion Gap 10.9 mEq/L (5.0-15.0); Magnesium 1.9 mg/dL (1.6-2.4); Phosphorus 3.7 mg/dL (2.5-4.9); Potassium 3.9 mEq/L (3.5-5.1)
[2023-11-22] MEDS: ASPIRIN EC 81 MG TAB PO SCH (08:39)
[2023-11-22] MEDS: PANTOPRAZOLE 40MG TABLET PO SCH (08:39)
[2023-11-22] MEDS: ACETAMINOPHEN 500 MG TAB PO PRN (08:39)
[2023-11-22] MEDS: METOPROLOL TAR 50 MG TAB PO SCH (08:40)
[2023-11-22] MEDS: lisinopriL 10 MG TAB PO SCH (08:40)
[2023-11-22] MEDS ORDERED: FAMOTIDINE 20 MG TAB PO SCH (09:00)
[2023-11-22] MEDS ORDERED: PANTOPRAZOLE 40 MG INJ IVP SCH (09:00)
[2023-11-22] MEDS: POTASSIUM CL SA 10 MEQ TAB PO ONE (09:48)
--- NOTE | 2023-11-22 11:25 | P.PN ---
Date of Service: 11/22/23 Subjective She is awake and complaining of a headache She reports abdominal pain decreased, and has passed gas ROS 10 point ROS as noted above, otherwise negative Physical Exam General: Alert and Oriented x3, In no apparent distress, afebrile HEENT: Atraumatic, Normocephalic, PERRLA Neck: Supple, 2+ carotid pulse no bruit Respiratory: Clear to auscultation bilaterally, Normal air movement Cardiovascular: No edema, Normal pulses, RRR Normal S1 S2 Capillary refill: <2 Seconds Gastrointestinal: Normal bowel sounds, Soft and benign on palpation, ND/NT Musculoskeletal: No clubbing Integumentary: No rashes Neurological: Normal speech, Normal tone Vitals Reviewed Problem list Acute sigmoid diverticulitis with 2.4 cm abscess Lower abdominal pain Nausea ALEXSANDER History of COPD History of hypertension History of bladder cancer History of CAD status post CABG History of nephrectomy Substance abuse Assessment and Plan Acute sigmoid diverticulitis with 2.4 cm abscess Lower abdominal pain Nausea -N.p.o.-sips of water with meds -Dr. Santana following -IV fluids while NPO -continue Cipro and Flagyl -Pain control/ antiemetics/protonix -Follow blood cultures ALEXSANDER -BUN/creatinine 15/0.95, GFR 67 -IV fluids -Monitor in a.m. labs History of COPD History of hypertension History of bladder cancer History of CAD status post CABG History of nephrectomy -Continue home medication -Continue follow-up outpatient Substance abuse -vape and marijuana use daily DVT PPx SCDs Full code LOS 2 days Discharge Plan: Home Plan to discharge in: 48 Hours
--- NOTE | 2023-11-22 14:59 | P.PN ---
Date of Service: 11/22/23 S: Patient says she feels much better today, abdominal pain is less, asking for a cup of coffee. Has been up ambulating, pain is controlled. O: Vital signs are stable, white cell count has come down slightly, clinical exam shows a marked improvement since initial presentation. Still has some tenderness in the suprapubic area, but much improved A: Responding well to antibiotics, pain medicine, and n.p.o. P: Will advance diet to full liquids, encourage patient to ambulate, will order an incentive spirometer. Depending on clinical exam, and repeat labs will most likely advance her diet again tomorrow. I will also ask for Dr. Avila to see the patient as there is a question as to whether or not she has some fistulous connection between the rectum and the bladder with some drainage. She is also due for a repeat cystoscopy to monitor her bladder cancer.
[2023-11-22] MEDS: LABETALOL 20 MG/4ML SYRINGE IV ONE (20:30)
[2023-11-22] MEDS: MONTELUKAST 10 MG TAB PO SCH (20:38)
[2023-11-22] MEDS: ATORVASTATIN 80 MG TAB PO SCH (20:38)
[2023-11-23 05:35] LABS: Absolute Basophils 0.1 K/uL (0-0.5); Absolute Eosinophils 0.5 K/uL (0-0.5); Absolute Lymphocytes (CBC) 1.1 K/uL (0.7-4.9); Absolute Monocytes 0.9 K/uL (0.1-1.3); Absolute Neutrophil 5.4 K/uL (1.8-8.0); Basophils % 0.9 % (0-1.3); Eosinophils % 6.5 % (0-4.4); Hematocrit 29.1 % (36.0-45.0); Hemoglobin 9.8 g/dL (12.0-15.0); MCH 28.3 pg (27.0-35.0); MCHC 33.8 g/dL (32.0-36.0); MCV 83.8 fL (80-100); Monocytes % 11.2 % (3.3-12.3); Neutrophils % 67.4 % (41.7-73.7); Platelets 291 thou/uL (152-406); RBC Red Blood Cell Count 3.47 M/uL (3.86-4.86); Red Cell Distribution Width 14.9 % (12.1-15.2)
[2023-11-23 05:54] LABS: Anion Gap 12.9 mEq/L (5.0-15.0); Magnesium 1.6 mg/dL (1.6-2.4); Phosphorus 2.7 mg/dL (2.5-4.9); Potassium 3.9 mEq/L (3.5-5.1)
[2023-11-23] MEDS: POTASSIUM CL SA 10 MEQ TAB PO ONE (09:26)
[2023-11-23] MEDS: MAGNESIUM SULFATE 1 gm IVPB 1 GM/100 ML BAG IV ONE (09:27)
--- NOTE | 2023-11-23 09:51 | RAD REPORT ---
EXAM DESCRIPTION: CTAbdomen Pelvis W Contrast - 11/23/2023 9:20 am CLINICAL HISTORY: Abdominal pain. diverticulitis with abscess serial imaging COMPARISON: Abdomen Pelvis W Contrast dated 09/13/2020; Abdomen Pelvis Wo Contrast dated 11/21/2023 TECHNIQUE: Biphasic CT imaging of the abdomen and pelvis was performed with 100 ml non-ionic IV cont rast. All CT scans are performed using dose optimization technique as appropriate and may include automated exposure control or mA/KV adjustment according to patient size. FINDINGS: The lung bases are clear. The liver, spleen, pancreas, adrenal glands and left kidney are within normal limits. Status post rig ht nephrectomy. No bowel obstruction, free air, free fluid or abscess. Again noted is significant thickening and infl ammation involving the sigmoid colon with wall thickening measuring up to 2 centimeters. There are se veral diverticula in this location as well. The involvement of the sigmoid colon appears greater than on prior study, currently 10-11 cm. No abscess. The appendix is normal. No evidence of significant lymphadenopathy. No suspicious bony findings. IMPRESSION: Acute diverticulitis of the sigmoid colon remains present. It appears that a greater les gth of the sigmoid colon is involved. Currently approximately 11 cm of the sigmoid colon appears invo lved relative to prior study which time it was approximately 5 cm. There is no evidence of abscess.
--- NOTE | 2023-11-23 10:12 | P.PN ---
Date of Service: 11/23/23 Subjective Awke, was NPO except sips of water all day and night CT abd/pelvis showing increased colon involvement Will remain NPO ROS 10 point ROS as noted above, otherwise negative Physical Exam General: AAOx3, NAD, calm HEENT: Atraumatic, Normocephalic, PERRLA Neck: Supple, 2+ carotid pulse no bruit Respiratory: Clear to auscultation bilaterally, Normal air movement Cardiovascular: No edema, Normal pulses, NSR, Normal S1 S2 Capillary refill: <2 Seconds Gastrointestinal: Normal bowel sounds, Soft on palpation, ND/NT Musculoskeletal: No clubbing Integumentary: No rashes Neurological: Normal speech, Normal tone Vitals Reviewed Problem list Acute sigmoid diverticulitis with 2.4 cm abscess Lower abdominal pain Nausea ALEXSANDER History of COPD History of hypertension History of bladder cancer History of CAD status post CABG History of nephrectomy Substance abuse Assessment and Plan Acute sigmoid diverticulitis with 2.4 cm abscess Lower abdominal pain Nausea -N.p.o.-sips of water with meds -Dr. Santana following -IV fluids while NPO -continue Cipro and Flagyl -Pain control/antiemetics/protonix -Follow blood cultures -Repeat CT abd/pelvis reports "Acute diverticulitis of the sigmoid colon remains present. It appears that a greater length of the sigmoid colon is involved. Currently approximately 11 cm of the sigmoid colon appears involved relative to prior study which time it was approximately 5 cm. There is no evidence of abscess." ALEXSANDER-resolved -BUN/creatinine 9/0.85, GFR 76 -IV fluids -Monitor in a.m. labs -Increase IV fluids s/p dye for CT scan History of COPD History of hypertension History of bladder cancer History of CAD status post CABG History of nephrectomy -Continue home medication -Continue follow-up outpatient Substance abuse -vape and marijuana use daily DVT PPx SCDs Full code LOS 2 days Discharge Plan: Home Plan to discharge in: 48 Hours
[2023-11-23] MEDS: NA CHLORIDE 0.9% 500 ML IV ONE (10:46)
[2023-11-24 05:06] LABS: Absolute Eosinophils 0.4 K/uL (0-0.5); Absolute Monocytes 0.8 K/uL (0.1-1.3); Absolute Neutrophil 4.6 K/uL (1.8-8.0); Basophils % 0.7 % (0-1.3); Eosinophils % 5.8 % (0-4.4); Hematocrit 24.3 % (36.0-45.0); Lymphocytes % 14.7 % (15.3-44.8); MCH 27.7 pg (27.0-35.0); MCHC 33.2 g/dL (32.0-36.0); MCV 83.5 fL (80-100); MPV 7.9 fL (7.6-11.3); Neutrophils % 66.8 % (41.7-73.7); Platelets 231 thou/uL (152-406); RBC Red Blood Cell Count 2.91 M/uL (3.86-4.86); Red Cell Distribution Width 14.9 % (12.1-15.2)
[2023-11-24 05:18] LABS: Anion Gap 11.7 mEq/L (5.0-15.0); Magnesium 1.6 mg/dL (1.6-2.4); Phosphorus 2.8 mg/dL (2.5-4.9); Potassium 3.7 mEq/L (3.5-5.1)
[2023-11-24] MEDS: MORPHINE 2 MG/ML SYR IV PRN (06:16)
[2023-11-24 07:07] LABS: Specific Gravity 1.008 (1.005-1.030); Sqamous Epithelial <5 /HPF (None Seen); Urine Bacteria <20 /HPF (<20); Urine Bilirubin NEGATIVE (Negative); Urine Blood Trace (Negative); Urine Clarity Turbid (Clear); Urine Color Light-Yellow (Yellow); Urine Culture Reflex Order NOT NEEDED; Urine Glucose NEGATIVE (Negative); Urine Ketones TRACE (Negative); Urine Microscopic Reflex YN ORDER UMIC; Urine Mucus Slight /HPF (None Seen); Urine Nitrite NEGATIVE (Negative); Urine Protein NEGATIVE (Negative); Urine RBC <5 /HPF (None Seen); Urine Urobilinogen Normal (Normal); Urine WBC <5 /HPF (<5)
--- NOTE | 2023-11-24 12:16 | P.PN ---
Date of Service: 11/24/23 Subjective Feels pain is improving Tolerating clear liquids Frustrated with needing to be in the hospital still No other acute events overnight ROS 10 point ROS as noted above, otherwise negative Physical Exam General: AAOx3, NAD, calm HEENT: Atraumatic, Normocephalic, PERRLA Neck: Supple, 2+ carotid pulse no bruit Respiratory: Clear to auscultation bilaterally, Normal air movement Cardiovascular: No edema, Normal pulses, NSR, Normal S1 S2 Capillary refill: <2 Seconds Gastrointestinal: Normal bowel sounds,mild suprapubic tenderness to palpation Musculoskeletal: No clubbing Integumentary: No rashes Neurological: Normal speech, Normal tone Vitals Reviewed Problem list Acute sigmoid diverticulitis with 2.4 cm abscess ALEXSANDER-resolved History of COPD History of hypertension History of bladder cancer History of CAD status post CABG History of nephrectomy History of substance abuse Assessment and Plan Acute sigmoid diverticulitis with 2.4 cm abscess -Clear liquids today -Dr. Santana following -continue Cipro and Flagyl -Pain control/antiemetics/protonix -Blood cultures with no growth thus far -Repeat CT abd/pelvis reports "Acute diverticulitis of the sigmoid colon remains present. It appears that a greater length of the sigmoid colon is involved. Currently approximately 11 cm of the sigmoid colon appears involved relative to prior study which time it was approximately 5 cm. There is no evidence of abscess." -Continue to advance diet, if tolerating diet possible discharge next 1 to 2 days -There is some concern for possible fistula, recommend outpatient follow-up with urology for further evaluation as well as surveillance given history of bladder cancer ALEXSANDER-resolved -Monitor chemistry daily -Can DC IV fluids when tolerating enough fluids by mouth hopefully later today or tomorrow History of COPD History of hypertension History of bladder cancer History of CAD status post CABG History of nephrectomy -Continue home medication -Continue follow-up outpatient Substance abuse -vape and marijuana use daily -Counseled on need for cessation DVT PPx SCDs Full code LOS 1-2 days Discharge Plan: Home Plan to discharge in: 48 Hours
[2023-11-25 05:08] LABS: Absolute Basophils 0.1 K/uL (0-0.5); Absolute Eosinophils 0.5 K/uL (0-0.5); Absolute Monocytes 0.8 K/uL (0.1-1.3); Absolute Neutrophil 3.9 K/uL (1.8-8.0); Basophils % 0.9 % (0-1.3); Eosinophils % 8.7 % (0-4.4); Hemoglobin 7.8 g/dL (12.0-15.0); Lymphocytes % 16.6 % (15.3-44.8); MCH 27.5 pg (27.0-35.0); MCHC 32.5 g/dL (32.0-36.0); MCV 84.7 fL (80-100); MPV 8.2 fL (7.6-11.3); Neutrophils % 61.8 % (41.7-73.7); Platelets 231 thou/uL (152-406); RBC Red Blood Cell Count 2.84 M/uL (3.86-4.86); Red Cell Distribution Width 14.8 % (12.1-15.2)
[2023-11-25 05:33] LABS: Anion Gap 8.7 mEq/L (5.0-15.0); Magnesium 1.5 mg/dL (1.6-2.4); Phosphorus 2.9 mg/dL (2.5-4.9); Potassium 3.7 mEq/L (3.5-5.1)
[2023-11-25] MEDS ORDERED: SODIUM CHLORIDE 0.9% 10ML INJ IV PRN (08:16)
[2023-11-25] MEDS: PANTOPRAZOLE 40 MG INJ IVP SCH (09:00)
--- NOTE | 2023-11-25 14:03 | P.PN ---
Date of Service: 11/25/23 Subjective Still tolerating clear liquids Reports very small amounts of stool with melena present Has not had a normal bowel movement yet Pain significantly improved Hemoglobin downtrending ROS 10 point ROS as noted above, otherwise negative Physical Exam General: AAOx3, NAD, calm HEENT: Atraumatic, Normocephalic, PERRLA Neck: Supple, 2+ carotid pulse no bruit Respiratory: Clear to auscultation bilaterally, Normal air movement Cardiovascular: No edema, Normal pulses, NSR, Normal S1 S2 Capillary refill: <2 Seconds Gastrointestinal: Normal bowel sounds,mild suprapubic tenderness to palpation Musculoskeletal: No clubbing Integumentary: No rashes Neurological: Normal speech, Normal tone Vitals Reviewed Problem list Acute sigmoid diverticulitis with 2.4 cm abscess Melena ALEXSANDER-resolved History of COPD History of hypertension History of bladder cancer History of CAD status post CABG History of nephrectomy History of substance abuse Assessment and Plan Acute sigmoid diverticulitis with 2.4 cm abscess -Clear liquids today -Dr. Santana following -continue Cipro and Flagyl -Pain control/antiemetics/protonix -Blood cultures with no growth thus far -Repeat CT abd/pelvis reports "Acute diverticulitis of the sigmoid colon remains present. It appears that a greater length of the sigmoid colon is involved. Currently approximately 11 cm of the sigmoid colon appears involved relative to prior study which time it was approximately 5 cm. There is no evidence of abscess." -Continue to advance diet, if tolerating -There is some concern for possible fistula, recommend outpatient follow-up with urology for further evaluation as well as surveillance given history of bladder cancer Melena Patient reports she has not had a normal bowel movement yet She has been passing small amounts of stool/flatus which appear to be black She does take daily oral Protonix which she has been on during hospitalization Hemoglobin slowly trending down, does report history of gastric ulcers a few years ago Repeat hemoglobin this afternoon, if still trending downward consider GI consultation Increased PPI to twice daily IV ALEXSANDER-resolved -Monitor chemistry daily -IV fluids discontinued History of COPD History of hypertension History of bladder cancer History of CAD status post CABG History of nephrectomy -Continue home medication -Continue follow-up outpatient Substance abuse -vape and marijuana use daily -Counseled on need for cessation DVT PPx SCDs Full code LOS 1-2 days Discharge Plan: Home Plan to discharge in: 48 Hours
[2023-11-26 05:39] LABS: Absolute Eosinophils 0.7 K/uL (0-0.5); Absolute Monocytes 0.6 K/uL (0.1-1.3); Absolute Neutrophil 3.7 K/uL (1.8-8.0); Basophils % 0.7 % (0-1.3); Eosinophils % 11.8 % (0-4.4); Hematocrit 25.6 % (36.0-45.0); Hemoglobin 8.3 g/dL (12.0-15.0); Lymphocytes % 15.8 % (15.3-44.8); MCH 27.2 pg (27.0-35.0); MCHC 32.5 g/dL (32.0-36.0); MCV 83.8 fL (80-100); MPV 8.1 fL (7.6-11.3); Monocytes % 10.5 % (3.3-12.3); Neutrophils % 61.2 % (41.7-73.7); Nucleated Red Blood Cells % 0.1 % (0-0); Platelets 272 thou/uL (152-406); RBC Red Blood Cell Count 3.05 M/uL (3.86-4.86); Red Cell Distribution Width 14.8 % (12.1-15.2)
[2023-11-26 05:54] LABS: Anion Gap 8.6 mEq/L (5.0-15.0); Ferritin 44.1 ng/mL (8-252); Magnesium 1.5 mg/dL (1.6-2.4); Phosphorus 3.2 mg/dL (2.5-4.9); Potassium 3.6 mEq/L (3.5-5.1)
[2023-11-26] MEDS: POTASSIUM CL SA 10 MEQ TAB PO ONE (09:14)
--- NOTE | 2023-11-26 09:25 | P.DS ---
Admission Date: 11/21/23 Discharge Date: 11/26/23 Disposition: ROUTINE DISCHARGE Discharge Condition: GOOD Reason for Admission: Acute sigmoid diverticulitis Consultations: General surgery-Dr. Santana Brief History of Present Illness: Barak Dior is a 63 year old female with Pmhx Cholecystitis; Chronic obstructive lung disease; Hypertensive disorder; bladder cancer who presents to the ED with chief complaint of lower abdomnial pain. She reports severe abdominal pain for five days and remembers having nausea and abdominal pain in the past but didn't believe it was a problem since it was relieved. She reports seeing Dr. Nation for a colonoscopy but was unable to perform it d/t her bowel being "twisted". She reports using vape and marjiuana daily. CT abd/pelvis showing acute sigmoid diverticulitis with 2.4 cm abscess. Hospital Course: Problem list Acute sigmoid diverticulitis with 2.4 cm abscess Iron deficiency anemia Melena-resolved ALEXSANDER-resolved History of COPD History of hypertension History of bladder cancer History of CAD status post CABG History of nephrectomy History of substance abuse Patient was admitted to the hospital for acute sigmoid diverticulitis with 2.4 cm abscess on 11/20. She was managed medically with IV antibiotics, IV fluids and had a steady/gradual improvement. CT was repeated on 11/22 which showed a larger area of the colon involved in a diverticulitis but no signs of an abscess. Patient continued to clinically improve and did not require surgical intervention. Her diet was advanced and she is currently tolerating a soft diet. Patient has a history of bladder cancer with previous nephrectomy as well as hysterectomy, there is some concern for possible colovaginal fistula. Patient will need to follow-up with general surgeryDr. Santana, urologyDsonia Avila and her primary care doctor for further management as an outpatient. On 11/24 patient did report some dark stool smears when wiping, today on 11/25 she reports she more normal bowel movement that was "dark brown". Her hemoglobin has remained stable and is 8.3 on day of discharge, iron studies were ordered, iron level is 21, TIBC 220 transference saturation percent is 9.5% and transferrin is 157. Patient was previously on iron supplementation but stopped taking it, recommend resumption of iron supplementation as well as daily Protonix. She will also need to follow-up with GI. General: AAOx3, NAD, calm HEENT: Atraumatic, Normocephalic, PERRLA Neck: Supple, 2+ carotid pulse no bruit Respiratory: Clear to auscultation bilaterally, Normal air movement Cardiovascular: No edema, Normal pulses, NSR, Normal S1 S2 Capillary refill: <2 Seconds Gastrointestinal: Normal bowel sounds,mild suprapubic tenderness to palpation Musculoskeletal: No clubbing Integumentary: No rashes Neurological: Normal speech, Normal tone Vital Signs/Physical Exam: Temp Pulse Resp BP Pulse Ox 98.3 F 82 118 H 176/77 H 95 11/26/23 08:00 11/26/23 09:15 11/26/23 08:00 11/26/23 09:15 11/26/23 08:00 Laboratory Data at Discharge: WBC 6.10 thou/uL (4.3-10.9) 11/26/23 05:11 Hgb 8.3 g/dL (12.0-15.0) L 11/26/23 05:11 Hct 25.6 % (36.0-45.0) L 11/26/23 05:11 Plt Count 272 thou/uL (152-406) 11/26/23 05:11 Sodium 138 mEq/L (136-145) 11/26/23 05:11 Potassium 3.6 mEq/L (3.5-5.1) 11/26/23 05:11 BUN 3 mg/dL (7-18) L 11/26/23 05:11 Creatinine 0.77 mg/dL (0.55-1.02) 11/26/23 05:11 Glucose 102 mg/dL (74-106) 11/26/23 05:11 Phosphorus 3.2 mg/dL (2.5-4.9) 11/26/23 05:11 Magnesium 1.5 mg/dL (1.6-2.4) L 11/26/23 05:11 Total Bilirubin 0.4 mg/dL (0.2-1.0) 11/21/23 14:08 AST 13 U/L (15-37) L 11/21/23 14:08 ALT 17 U/L (13-56) 11/21/23 14:08 Alkaline Phosphatase 83 U/L (45-117) 11/21/23 14:08 Lipase 27 U/L (13-75) 11/21/23 14:08 Home Medications: Aspirin [Aspirin EC 81 MG] 81 mg PO DAILY 09/03/20 Atorvastatin Calcium [Lipitor] 80 mg PO BEDTIME 09/03/20 Lisinopril [Zestril] 10 mg PO BID 09/03/20 Montelukast [Singulair*] 10 mg PO BEDTIME 09/03/20 Metoprolol Tartrate 75 mg PO BID 11/22/23 Ciprofloxacin HCl 500 mg PO BID 10 Days #20 tab 11/26/23 Ferrous Sulfate [Iron] 325 mg PO DAILY #30 tab 11/26/23 Pantoprazole [Protonix Tab] 40 mg PO DAILY #30 tab 11/26/23 metroNIDAZOLE [Flagyl] 500 mg PO Q8H 10 Days #30 tab 11/26/23 New Medications: Ciprofloxacin HCl 500 mg PO BID 10 Days #20 tab metroNIDAZOLE [Flagyl] 500 mg PO Q8H 10 Days #30 tab Ferrous Sulfate [Iron] 325 mg PO DAILY #30 tab Pantoprazole [Protonix Tab] 40 mg PO DAILY #30 tab Physician Discharge Instructions: Patient was admitted to the hospital for acute sigmoid diverticulitis with 2.4 cm abscess on 11/20. She was managed medically with IV antibiotics, IV fluids and had a steady/gradual improvement. CT was repeated on 11/22 which showed a larger area of the colon involved in a diverticulitis but no signs of an abscess. Patient continued to clinically improve and did not require surgical intervention. Her diet was advanced and she is currently tolerating a soft diet. Patient has a history of bladder cancer with previous nephrectomy as well as hysterectomy, there is some concern for possible colovaginal fistula. Patient will need to follow-up with general surgeryDr. Santana, urologyDrMario Avila and her primary care doctor for further management as an outpatient. On 11/24 patient did report some dark stool smears when wiping, today on 11/25 she reports she more normal bowel movement that was "dark brown". Her hemoglobin has remained stable and is 8.3 on day of discharge, iron studies were ordered, iron level is 21, TIBC 220 transference saturation percent is 9.5% and transferrin is 157. Patient was previously on iron supplementation but stopped taking it, recommend resumption of iron supplementation as well as daily Protonix. She will also need to follow-up with GI. Diet: Regular Activity: low fiber Followup: Joni Santana MD [ACTIVE - CAN ADMIT] - 1-2 Weeks Doug Catherine MD [Primary Care Provider] - 1-2 Weeks Deuce Nation MD [ASSOCIATE-ACTIVE - CAN ADMIT] - 1-2 Weeks Jaspreet Avila [ACTIVE - CAN ADMIT] - 1-2 Weeks Time spent managing pt's care (in minutes): 37
[2023-11-26 11:11] VITALS: O2SAT 95
[2023-11-26 12:23] VITALS: BP 156/86; TEMP 97.9
== END 2023-11-26 12:32 | disposition home or self-care (01) | DRG 378 ==
LOC: ER 13:46 → ERHOLD 17:54 → 2ND 19:38
PROVIDERS: ADMIT Internal Medicine; ATTEND Hospitalist
DX: K57.21 Diverticulitis of large intestine with perforation and abscess with bleeding (principal); N17.9 Acute kidney failure, unspecified; N82.3 Fistula of vagina to large intestine; I10 Essential (primary) hypertension; D50.9 Iron deficiency anemia, unspecified; J44.9 Chronic obstructive pulmonary disease, unspecified; F12.10 Cannabis abuse, uncomplicated; I25.10 Atherosclerotic heart disease of native coronary artery without angina pectoris; Z90.5 Acquired absence of kidney; Z95.1 Presence of aortocoronary bypass graft; Z79.82 Long term (current) use of aspirin; Z85.51 Personal history of malignant neoplasm of bladder; Z79.899 Other long term (current) drug therapy; Z87.891 Personal history of nicotine dependence; Z90.710 Acquired absence of both cervix and uterus
CPT/HCPCS: 36415; 74176; 74177; 80048; 80053; 81001; 82728; 83540; 83605; 83690; 83735; 84100; 84466; 85018; 85025; 86850; 86900; 86901; 87040; 96361; 96374; 96375; 99285; J0360; J0744; J2270; J2405; J2470; J2543; J3475; J7030; J7040; Q9967

== ENCOUNTER 2025-01-05 07:59 | Emergency (ER) | payer MEDICAID, OTHER ==
[2025-01-05] MEDS ORDERED: ALBUTEROL 2.5 MG/3 ML NEB SOL ONE (08:34)
[2025-01-05] MEDS ORDERED: IPRATROPIUM BROM 0.5MG/2.5ML ONE (08:34)
--- NOTE | 2025-01-05 08:56 | RAD REPORT ---
EXAMINATION: ONE VIEW CHEST XR CLINICAL INDICATION: DYSPNEA TECHNIQUE: Frontal chest projection is submitted. Examination is limited by patient positioning and t echnique. COMPARISON: No prior exam. FINDINGS: Mild bilateral pulmonary edema is suspected. The heart is moderately enlarged in size. Trace pleural fluid. Sternotomy wires. IMPRESSION: Mild CHF versus volume overload pattern is suspected.
--- NOTE | 2025-01-05 09:28 | ER ---
Nurse's Notes [facility] Name: Barak Dior Age: 64 yrs Sex: Female : 1960 Arrival Date: 01/05/2025 Time: 07:59 Bed 13 Private MD: Diagnosis: Dyspnea Presentation: 01/05 08:18 Chief complaint: EMS states: PT CALLED EMS FOR SOB AND HTN, ASA 324 MG, NITRO 0.4 SL db GIVEN BY EMS. Care prior to arrival: Medication(s) given: ASA, 81 mg, x 4, Nitroglycerin, 0.4 mg SL x 1, IV initiated. 20 GA, in the right antecubital area. 08:18 Method Of Arrival: EMS: [facility] db 08:18 Coronavirus screen: Client denies travel out of the [place] in the last 14 days. At this db time, the client does not indicate any symptoms associated with coronavirus-19. Ebola Screen: Patient negative for fever greater than or equal to 101.5 degrees Fahrenheit, and additional compatible Ebola Virus Disease symptoms Patient denies exposure to infectious person. Patient denies travel to an Ebola-affected area in the 21 days before illness onset. No symptoms or risks identified at this time. Initial Sepsis Screen: Does the patient meet any 2 criteria? No. Patient's initial sepsis screen is negative. Does the patient have a suspected source of infection? No. Patient's initial sepsis screen is negative. Risk Assessment: Do you want to hurt yourself or someone else? Patient reports no desire to harm self or others. Onset of symptoms was January 05, 2025. 08:18 Acuity: SAM 2 db Triage Assessment: 08:18 General: Appears in no apparent distress. comfortable, Behavior is calm, cooperative. db Pain: Denies pain. Neuro: Level of Consciousness is awake, alert, obeys commands, Oriented to person, place, time, situation. Respiratory: Reports shortness of breath Onset: The symptoms/episode began/occurred gradually, the patient has moderate shortness of breath. Historical: - Allergies: 08: No Known Allergies; db - PMHx: 08: Bladder cancer (Unknown); Chronic obstructive lung disease; Cholecystitis; db Diverticulitis; Hypertensive disorder; - PSHx: 08: cancer bladder; section; Coronary artery bypass graft; kidney removal; db - Immunization history:: Adult Immunizations unknown. - Infectious Disease History:: Denies. - Social history:: Smoking status: Reported history of juuling and/or vaping. Patient uses street drugs, marijuana. Screenin:46 [facility] ED Fall Risk Assessment (Adult) History of falling in the last 3 months, db including since admission No falls in past 3 months (0 pts) Confusion or Disorientation No (0 pts) Intoxicated or Sedated No (0 pts) Impaired Gait No (0 pts) Mobility Assist Device Used No (0 pt) Altered Elimination No (0 pt) Score/Fall Risk Level 0 - 2 = Low Risk Oriented to surroundings, Maintained a safe environment. Abuse screen: Denies threats or abuse. Denies injuries from another. Nutritional screening: No deficits noted. Tuberculosis screening: No symptoms or risk factors identified. Assessment: 08:41 Reassessment: Patient appears in no apparent distress at this time. Patient and/or db family updated on plan of care and expected duration. Pain level reassessed. Patient is alert, oriented x 3, equal unlabored respirations, skin warm/dry/pink. General: Appears in no apparent distress. Neuro: Level of Consciousness is awake, alert, obeys commands, Oriented to person, place, time, situation. 09:46 Reassessment: Patient appears in no apparent distress at this time. Patient and/or db family updated on plan of care and expected duration. Pain level reassessed. Patient is alert, oriented x 3, equal unlabored respirations, skin warm/dry/pink. Cardiovascular: Rhythm is regular. Respiratory: Airway is patent Respiratory effort is even, Breath sounds are clear. Vital Signs: 08:18 BP 203 / 74; Pulse 67; Resp 20; Temp 98.4; Pulse Ox 99% ; db 09:46 BP 204 / 90; Pulse 55; Resp 14; Pulse Ox 100% on R/A; db ED Course: 08:21 Patient arrived in ED. db 08:21 Tracy Shaw PA-C is PHCP. sb4 08:21 Rai Srivastava MD is Attending Physician. sb4 08:25 Triage completed. db 08:28 Arm band placed on Patient placed in an exam room. db 08:41 Jaqui Boyd, XANDER is Primary Nurse. db 08:53 Chest Single View XRAY In Process Unspecified. EDMS 09:00 Maintain EMS IV. Dressing intact. Good blood return noted. Site clean \T\ dry. Gauge \T\ db site: 20 G RAC. 09:46 Patient has correct armband on for positive identification. Bed in low position. Call db light in reach. Side rails up X 1. Provided Education on: DISCHARGE. Client placed on continuous cardiac and pulse oximetry monitoring. NIBP monitoring applied. monitoring analyst on. Pulse ox on. NIBP on. Warm blanket given. Pillow given. 09:46 No provider procedures requiring assistance completed. IV discontinued, intact, db bleeding controlled, No redness/swelling at site. Administered Medications: 08:35 Drug: DuoNeb Nebulize (3:1) (2.5 mg - 0.5 mg) 3 ml Nebulizer once Route: Nebulizer; db 09:10 Follow up: Response: No adverse reaction db 09:35 Drug: Furosemide IVP 20 mg IVP once; give over 2 minutes Route: IVP; Site: right db antecubital; 09:46 Follow up: Response: No adverse reaction db Medication: 09:46 VIS not applicable for this client. db Outcome: 09:27 Discharge ordered by sb4 09:46 Discharged to home ambulatory, with family, db 09:46 Condition: stable 09:46 Discharge instructions given to patient, Instructed on discharge instructions, follow up and referral plans. Prescriptions given X 1, 09:48 Patient left the ED. db Signatures: Dispatcher [employer] Jaqui May RN RN Tracy Lozano, PABuddyC PAReinaldo sb4
--- NOTE | 2025-01-05 09:28 | EDPHYS ---
Physician Documentation [facility] Name: Barak Dior Age: 64 yrs Sex: Female : 1960 Arrival Date: 01/05/2025 Time: 07:59 Bed 13 Private MD: ED Physician Rai Srivastava HPI: 01/05 08:31 This 64 yrs old Female presents to ER via EMS with complaints of Shortness Of Breath, sb4 High Blood Pressure. 08:32 patient states she called EMS because she felt like she was unable to take a deep sb4 breath. she denies any pain or wheezing. does have a history of COPD and endorses vaping and smoking weed regularly. also reports a mild cough. states she had a CT scan of her chest [address] [facility] but has not gotten the results yet. Historical: - Allergies: 08:22 No Known Allergies; db - PMHx: 08:22 Bladder cancer (Unknown); Chronic obstructive lung disease; Cholecystitis; db Diverticulitis; Hypertensive disorder; - PSHx: 08:22 cancer bladder; section; Coronary artery bypass graft; kidney removal; db - Immunization history:: Adult Immunizations unknown. - Infectious Disease History:: Denies. - Social history:: Smoking status: Reported history of juuling and/or vaping. Patient uses street drugs, marijuana. ROS: 08:32 Constitutional: Negative for fever, chills, and weight loss, sb4 08:32 Respiratory: Positive for per HPI, 08:32 All other systems are negative, Exam: 08:32 Constitutional: This is a well developed, well nourished patient who is awake, alert, sb4 and in no acute distress. Head/Face: Normocephalic, atraumatic. Eyes: Extra-ocular motions intact. Periorbital areas with no swelling, redness, or edema. ENT: Mucous membranes moist. Cardiovascular: Regular rate and rhythm with a normal S1 and S2. Respiratory: No increased work of breathing, no retractions or nasal flaring. Abdomen/GI: Soft, non-tender, no distension. Skin: Warm, dry with normal turgor. Normal color with no rashes, no lesions, and no evidence of cellulitis. 08:32 Respiratory: Breath sounds: are clear throughout, Vital Signs: 08:18 BP 203 / 74; Pulse 67; Resp 20; Temp 98.4; Pulse Ox 99% ; db 09:46 BP 204 / 90; Pulse 55; Resp 14; Pulse Ox 100% on R/A; db MDM: 08:21 Medical Screening Exam initiated sb4 08:32 Differential diagnosis: Anemia Anxiety Reaction asthma, Bronchitis Chronic Obstructive sb4 Pulmonary Disease pneumonia. 08:37 Care significantly affected by the following chronic conditions: Hypertension, Chronic sb4 Obstructive Pulmonary Disease. 08:38 ED course: blood pressure is elevated, patient is taking her home meds right now. sb4 08:50 Data interpreted: Pulse oximetry: on room air is 99 %. Interpretation: normal. Plan: O2 sb4 by GA applied. Independent interpretation of the following test(s) in the Emergency Department X-Ray: My interpretation is Chest x-ray image, no lobar consolidation or evidence of pneumonia. 09:30 Antibiotic administration: Not indicated, the patient does not have an appreciated sb4 infiltrate. Data reviewed: vital signs, nurses notes, EMS record, EKG, radiologic studies, and as a result, I will discharge patient. Consideration of Admission/Observation Escalation of care including admission/observation considered. Test considered but Not performed: Labs: patient just had labs done that were negative, reviewed on mychart. Counseling: I had a detailed discussion with the patient and/or guardian regarding the historical points, exam findings, and any diagnostic results supporting the discharge/admit diagnosis, the presence of at least one elevated blood pressure reading (>120/80) during this emergency department visit, radiology results, the need for outpatient follow up, a voip engineer, to return to the emergency department if symptoms worsen or persist or if there are any questions or concerns that arise at home. 01/05 08:29 Order name: Chest Single View XRAY; Complete Time: 08:57 sb4 01/05 08:29 Order name: EKG - Nurse/Tech; Complete Time: 08:41 sb4 EC:40 Rate is 58 beats/min. Rhythm is regular, Sinus bradycardia with PACs. IA interval is sb4 normal at 142 msec. QRS interval is normal at 88 msec. QT interval is prolonged at 460 msec. No Q waves. T waves are Normal. No ST changes noted. Clinical impression: No evidence of ischemia. Interpreted by me. Reviewed by me. Administered Medications: 08:35 Drug: DuoNeb Nebulize (3:1) (2.5 mg - 0.5 mg) 3 ml Nebulizer once Route: Nebulizer; db 09:10 Follow up: Response: No adverse reaction db 09:35 Drug: Furosemide IVP 20 mg IVP once; give over 2 minutes Route: IVP; Site: right db antecubital; 09:46 Follow up: Response: No adverse reaction db Disposition Summary: 01/05/25 09:27 Discharge Ordered Notes: Location: Home sb4 Problem: new sb4 Symptoms: have improved sb4 Condition: Stable sb4 Diagnosis - Dyspnea sb4 Followup: sb4 - With: Emergency Department - When: As needed - Reason: Trouble breathing, Worsening of condition Discharge Instructions: - Discharge Summary Sheet sb4 - Pulmonary Edema, Oxed-St-Yjll sb4 Forms: - Patient Portal Instructions sb4 - Leadership Thank You Letter sb4 Prescriptions: - furosemide 20 mg Oral tablet - take 1 tablet ORAL route every morning; 10 tablet; Refills: 0, Product sb4 Selection Permitted Signatures: Dispatcher [employer] Jaqui May, XANDER RN Tracy Lozano PABuddyC PABuddyC sb4
[2025-01-05] MEDS ORDERED: FUROSEMIDE 20 MG/ 2ML VIAL ONE (09:35)
[2025-01-05 12:08] VITALS: BP 204/90; TEMP 98.4; O2SAT 100
== END 2025-01-05 09:48 | disposition home or self-care (01) ==
LOC: ER 07:59
DX: R06.00 Dyspnea, unspecified (principal); I10 Essential (primary) hypertension; J44.9 Chronic obstructive pulmonary disease, unspecified; Z95.1 Presence of aortocoronary bypass graft
CPT/HCPCS: 93005; 71045; 96374; 99285; J1938; J7613; J7644